=== PATIENT | male | born 1975 | race Caucasian/White ===

== ENCOUNTER → 2017-03-19 | Outpatient (CLI) | payer MEDICARE ==
--- NOTE | 2017-03-19 11:47 | FL ---
EXAMINATION TYPE: FL UGI air w esophagus DATE OF EXAM: 03/19/2017 11:38 AM COMPARISON: Previous study dated 05/05/2011. HISTORY: Severe epigastric pain and weight loss. TECHNIQUE: A double contrast UGI study is performed. FINDINGS: The patient experienced some discomfort drinking barium. There is prompt egress of barium f rom the esophagus into the stomach. There are postoperative changes in the stomach. There is a small diverticulum arising from the fundus of the stomach along the lesser curve. There is loss of the normal stomach folds in what is either t he gastric antrum of the proximal small bowel. There is a small area of fixed narrowing just distal t o the anastomosis with the stomach and small bowel. IMPRESSION: 1. POSTOPERATIVE CHANGE. 2. LOSS OF NORMAL MARKINGS IN THE DISTAL STOMACH OR PROXIMAL SMALL BOWEL CONSISTENT WITH CHRONIC IGGY RITIS. 3. FIXED NARROWING AT WHAT APPEARS TO BE ANASTOMOSIS OF THE STOMACH WITH THE SMALL BOWEL.
== END | disposition home or self-care (01) ==
LOC: RADFLWHC 11:00
PROVIDERS: ATTEND Surgery
DX: K27.9 Peptic ulcer, site unspecified, unspecified as acute or chronic, without hemorrhage or perforation (principal)
CPT/HCPCS: 74246

== ENCOUNTER 2017-09-14 16:05 | Emergency (ER) | payer MEDICARE ==
[2017-09-14] MEDS ORDERED: SODIUM CHLORIDE 0.9% 1,000 ML IV STA (16:26)
--- NOTE | 2017-09-14 16:38 | ED ---
Weakness HPI - General Chief complaint: Weakness Stated complaint: Dehydration Time Seen by Provider: 09/14/17 16:19 Source: patient, family, RN notes reviewed Mode of arrival: wheelchair Limitations: no limitations - History of Present Illness Initial comments: This a 41-year-old male presents emergency Department with family with chief complaint of dehydration. Patient states that he has been increasingly feeling weak and unable to the as much as he normally does. Patient states that he normally is thin but states that he's lost more weight than he usual. Patient states that he has known peptic ulcer disease and chronic back pain. Patient states he's been scoped by Dr. Kaveh gunn any other concerning symptoms. Patient states that he does have some nausea and occasional vomiting. Patient does complain of some sores in his mouth. Patient admits to be daily smoker states that he smoked 2 packs per day but currently only smokes half pack per day. He has no known cancer. Patient denies fever, chills, headache or dizziness. Denies palpitations or chest pain - Related Data Home Medications Medication Instructions Recorded Confirmed HYDROcodone/APAP 10-325MG [[place] 1 tab PO BID 06/24/14 09/14/17 10] Morphine Sulfate Ir [Msir] 30 mg PO Q8HR PRN 06/24/14 09/14/17 ALPRAZolam [Xanax] 0.5 mg PO BID 09/14/17 09/14/17 Citalopram Hydrobromide [CeleXA] 20 mg PO DAILY 09/14/17 09/14/17 Gabapentin 600 mg PO DAILY 09/14/17 09/14/17 Rizatriptan Benzoate [Maxalt] 10 mg PO DAILY PRN 09/14/17 09/14/17 Sucralfate [Carafate] 1 gm PO DAILY 09/14/17 09/14/17 Allergies Allergy/AdvReac Type Severity Reaction Status Date / Time azithromycin [From Zithromax] AdvReac Swelling Verified 09/14/17 16:43 Review of Systems ROS Statement: Those systems with pertinent positive or pertinent negative responses have been documented in the HPI. ROS Other: All systems not noted in ROS Statement are negative. Past Medical History Additional Past Medical History / Comment(s): Brittle bone disease, osteoporosis ,neuropathy scoliosis gi problems peptic ulcer disease History of Any Multi-Drug Resistant Organisms: None Reported MDRO Source:: Multiple abdominal surgeries related to peptic ulcer disease Past Surgical History: Cholecystectomy Additional Past Surgical History / Comment(s): stomach -tumor(benign) and ulcers Past Anesthesia/Blood Transfusion Reactions: No Reported Reaction Smoking Status: Current every day smoker Past Alcohol Use History: None Reported Past Drug Use History: None Reported - Past Family History Father Family Medical History: Cancer General Exam Limitations: no limitations General appearance: alert, in no apparent distress, lethargic, cachectic Head exam: Present: atraumatic, normocephalic, normal inspection Eye exam: Present: normal appearance, PERRL, EOMI. Absent: scleral icterus, conjunctival injection, periorbital swelling ENT exam: Present: mucous membranes moist, TM's normal bilaterally, normal external ear exam. Absent: normal oropharynx (Erythematous sores noted) Neck exam: Present: normal inspection, full ROM. Absent: tenderness, meningismus, lymphadenopathy Respiratory exam: Present: normal lung sounds bilaterally. Absent: respiratory distress, wheezes, rales, rhonchi, stridor Cardiovascular Exam: Present: normal rhythm, tachycardia, normal heart sounds. Absent: systolic murmur, diastolic murmur, rubs, gallop, clicks GI/Abdominal exam: Present: soft, normal bowel sounds. Absent: distended, tenderness, guarding, rebound, rigid Neurological exam: Present: alert, oriented X3, CN II-XII intact Skin exam: Present: warm, dry, intact, normal color. Absent: rash Course Vital Signs 09/14/17 09/14/17 16:13 18:26 Temperature 98.1 F Pulse Rate 140 H 79 Respiratory 18 15 Rate Blood Pressure 126/91 136/92 O2 Sat by Pulse 94 L 99 Oximetry Medical Decision Making - Medical Decision Making 41-year-old male presented for dehydration. Patient was hydrated with 2 L. Offer hospital admission for malnutrition, difficult swallowing and hydration. Patient states that he rather follow up outpatient. This was discussed in detail with family who agree at this time. Patient advised to call Dr. Linn's office for possible earlier EGD. Return parameters were discussed. - Lab Data Result diagrams: 09/14/17 17:04 09/14/17 17:04 Lab Results 09/14/17 09/14/17 09/14/17 Range/Units 17:04 17:04 17:04 WBC 10.8 H (3.8-10.6) k/uL RBC 4.02 L (4.30-5.90) m/uL Hgb 12.0 L (13.0-17.5) gm/dL Hct 40.7 (39.0-53.0) % MCV 101.3 H (80.0-100.0) fL MCH 29.9 (25.0-35.0) pg MCHC 29.5 L (31.0-37.0) g/dL RDW 17.4 H (11.5-15.5) % Plt Count 307 (150-450) k/uL Neutrophils % 88 % Lymphocytes % 7 % Monocytes % 3 % Eosinophils % 1 % Basophils % 0 % Neutrophils # 9.5 H (1.3-7.7) k/uL Lymphocytes # 0.8 L (1.0-4.8) k/uL Monocytes # 0.3 (0-1.0) k/uL Eosinophils # 0.1 (0-0.7) k/uL Basophils # 0.0 (0-0.2) k/uL Hypochromasia Moderate Anisocytosis Slight Macrocytosis Moderate PT (9.0-12.0) sec INR (<1.2) APTT (22.0-30.0) sec Sodium 143 (137-145) mmol/L Potassium 3.7 (3.5-5.1) mmol/L Chloride 112 H (98-107) mmol/L Carbon Dioxide 26 (22-30) mmol/L Anion Gap 5 mmol/L BUN 22 H (9-20) mg/dL Creatinine 0.50 L (0.66-1.25) mg/dL Est GFR (MDRD) Af Amer >60 (>60 ml/min/1.73 sqM) Est GFR (MDRD) Non-Af >60 (>60 ml/min/1.73 sqM) Glucose 87 (74-99) mg/dL Plasma Lactic Acid [place] (0.7-2.0) mmol/L Calcium 7.4 L (8.4-10.2) mg/dL Magnesium 1.7 (1.6-2.3) mg/dL Total Bilirubin 0.3 (0.2-1.3) mg/dL AST 59 (17-59) U/L ALT 38 (21-72) U/L Alkaline Phosphatase 281 H (38-126) U/L Total Creatine Kinase 152 (55-170) U/L CK-MB (CK-2) 1.2 (0.0-2.4) ng/mL CK-MB (CK-2) Rel Index 0.8 Troponin I <0.012 (0.000-0.034) ng/mL Total Protein 4.3 L (6.3-8.2) g/dL Albumin 1.6 L (3.5-5.0) g/dL Urine Color Urine Appearance (Clear) Urine pH (5.0-8.0) Ur Specific [place] (1.001-1.035) Urine Protein (Negative) Urine Glucose (UA) (Negative) Urine Ketones (Negative) Urine Blood (Negative) Urine Nitrite (Negative) Urine Bilirubin (Negative) Urine Urobilinogen (<2.0) mg/dL Ur Leukocyte Esterase (Negative) Urine RBC (0-5) /hpf Urine WBC (0-5) /hpf Urine Mucus (None) /hpf 09/14/17 09/14/17 09/14/17 Range/Units 17:04 17:04 17:04 WBC (3.8-10.6) k/uL RBC (4.30-5.90) m/uL Hgb (13.0-17.5) gm/dL Hct (39.0-53.0) % MCV (80.0-100.0) fL MCH (25.0-35.0) pg MCHC (31.0-37.0) g/dL RDW (11.5-15.5) % Plt Count (150-450) k/uL Neutrophils % % Lymphocytes % % Monocytes % % Eosinophils % % Basophils % % Neutrophils # (1.3-7.7) k/uL Lymphocytes # (1.0-4.8) k/uL Monocytes # (0-1.0) k/uL Eosinophils # (0-0.7) k/uL Basophils # (0-0.2) k/uL Hypochromasia Anisocytosis Macrocytosis PT 14.2 H (9.0-12.0) sec INR 1.5 H (<1.2) APTT 27.0 (22.0-30.0) sec Sodium (137-145) mmol/L Potassium (3.5-5.1) mmol/L Chloride (98-107) mmol/L Carbon Dioxide (22-30) mmol/L Anion Gap mmol/L BUN (9-20) mg/dL Creatinine (0.66-1.25) mg/dL Est GFR (MDRD) Af Amer (>60 ml/min/1.73 sqM) Est GFR (MDRD) Non-Af (>60 ml/min/1.73 sqM) Glucose (74-99) mg/dL Plasma Lactic Acid [place] 1.4 (0.7-2.0) mmol/L Calcium (8.4-10.2) mg/dL Magnesium (1.6-2.3) mg/dL Total Bilirubin (0.2-1.3) mg/dL AST (17-59) U/L ALT (21-72) U/L Alkaline Phosphatase (38-126) U/L Total Creatine Kinase (55-170) U/L CK-MB (CK-2) (0.0-2.4) ng/mL CK-MB (CK-2) Rel Index Troponin I (0.000-0.034) ng/mL Total Protein (6.3-8.2) g/dL Albumin (3.5-5.0) g/dL Urine Color Yellow Urine Appearance Clear (Clear) Urine pH 6.5 (5.0-8.0) Ur Specific [place] 1.024 (1.001-1.035) Urine Protein Trace H (Negative) Urine Glucose (UA) Negative (Negative) Urine Ketones 1+ H (Negative) Urine Blood Moderate H (Negative) Urine Nitrite Negative (Negative) Urine Bilirubin Negative (Negative) Urine Urobilinogen 3.0 (<2.0) mg/dL Ur Leukocyte Esterase Negative (Negative) Urine RBC 21 H (0-5) /hpf Urine WBC 1 (0-5) /hpf Urine Mucus Rare H (None) /hpf Disposition Clinical Impression: Dehydration, Malnutrition Disposition: HOME SELF-CARE Condition: Stable Instructions: Dehydration (ED) Additional Instructions: Please return to the Emergency Department if symptoms worsen or any other concerns. Referrals: Kavin Vital DO [Primary Care Provider] - 1-2 days Time of Disposition: 19:11
[2017-09-14 17:15] LABS: Anisocytosis Slight; Basophils % (A) 0 %; CH 30.7; CHCM 30.5; Eosinophils # (A) 0.1 k/uL (0-0.7); Eosinophils % (A) 1 %; HCT 40.7 % (39.0-53.0); HDW 2.44; Hypochromasia Moderate; Luc # (Auto) 0.08; Luc % (Auto) 1; Lymphocytes # (A) 0.8 k/uL (1.0-4.8); Lymphocytes % (A) 7 %; MCH 29.9 pg (25.0-35.0); MCHC 29.5 g/dL (31.0-37.0); MCV 101.3 fL (80.0-100.0); Macrocytosis Moderate; Monocytes # (A) 0.3 k/uL (0-1.0); Monocytes % (A) 3 %; Neutrophils # (A) 9.5 k/uL (1.3-7.7); Neutrophils % (A) 88 %; RBC 4.02 m/uL (4.30-5.90); RDW 17.4 % (11.5-15.5); WBC 10.8 k/uL (3.8-10.6); WBC (Perox) 9.89
[2017-09-14 17:27] LABS: ALT 38 U/L (21-72); AST 59 U/L (17-59); Alkaline Phosphatase 281 U/L (38-126); Anion Gap 5 mmol/L; Blood Urea Nitrogen 22 mg/dL (9-20); Calcium 7.4 mg/dL (8.4-10.2); Carbon Dioxide 26 mmol/L (22-30); Chloride 112 mmol/L (98-107); Glucose 87 mg/dL (74-99); Magnesium 1.7 mg/dL (1.6-2.3); Non-African American GFR(MDRD) >60 (>60 ml/min/1.73 sqM); Potassium 3.7 mmol/L (3.5-5.1); Sodium 143 mmol/L (137-145); Total Bilirubin 0.3 mg/dL (0.2-1.3); Total Protein 4.3 g/dL (6.3-8.2)
[2017-09-14 17:30] LABS: INR 1.5 (<1.2); Prothrombin Time 14.2 sec (9.0-12.0)
--- NOTE | 2017-09-14 17:33 | XR ---
EXAMINATION TYPE: XR chest 2V DATE OF EXAM: 09/14/2017 COMPARISON: 08/07/2011 HISTORY: Weakness TECHNIQUE: Frontal and lateral views of the chest are obtained. FINDINGS: There is no heart failure nor confluent pneumonic infiltrate. Costophrenic angles are edward r. Heart size is normal. There are chest leads. IMPRESSION: No active cardiopulmonary disease. No change.
[2017-09-14 17:37] LABS: Appearance,Urine Clear (Clear); Bilirubin,Urine Negative (Negative); Glucose,Urine (UA) Negative (Negative); Ketones,Urine 1+ (Negative); Leukocyte Esterase,Urine Negative (Negative); Mucus,Urine Rare /hpf; Nitrite,Urine Negative (Negative); PH, Urine 6.5 (5.0-8.0); Particle Count 2375; Protein,Urine Trace (Negative); RBC,Urine 21 /hpf (0-5); Specific Gravity,Urine 1.024 (1.001-1.035); UA Billing (MACRO vs. MICRO) MICRO; WBC,Urine 1 /hpf (0-5)
[2017-09-14 17:42] LABS: Creatine Kinase 152 U/L (55-170)
[2017-09-14 17:53] LABS: Creatine Kinase MB 1.2 ng/mL (0.0-2.4); Troponin I <0.012 ng/mL (0.000-0.034)
[2017-09-14] MEDS ORDERED: SODIUM CHLORIDE 0.9% 1,000 ML IV ONE (18:16)
[2017-09-14 19:44] VITALS: BP 144/99; PULSE 73; RESP 18; TEMP 97
== END 2017-09-14 19:43 | disposition home or self-care (01) ==
LOC: EC 16:05
DX: E46 Unspecified protein-calorie malnutrition (principal); E86.0 Dehydration; R00.0 Tachycardia, unspecified; G62.9 Polyneuropathy, unspecified; G89.29 Other chronic pain; K27.9 Peptic ulcer, site unspecified, unspecified as acute or chronic, without hemorrhage or perforation; F17.200 Nicotine dependence, unspecified, uncomplicated; Z79.891 Long term (current) use of opiate analgesic; Z79.899 Other long term (current) drug therapy; Z88.1 Allergy status to other antibiotic agents; Z90.49 Acquired absence of other specified parts of digestive tract
CPT/HCPCS: 36415; 71020; 80053; 81001; 82550; 82553; 83605; 83735; 84484; 85025; 85610; 85730; 93005; 96360; 96361; 99285

== ENCOUNTER 2017-11-18 02:25 | Inpatient (IN) | payer MEDICARE ==
[2017-11-18] MEDS ORDERED: KETOROLAC 60 MG/2 ML VIAL IVP STA (02:47)
[2017-11-18] MEDS ORDERED: IPRATROPIUM-ALBUTEROL 3 ML NEB INHALATION STA (02:47)
[2017-11-18] MEDS ORDERED: LORazepam 2 MG/ML INJ IV STA (02:48)
--- NOTE | 2017-11-18 02:51 | ED ---
General Adult HPI - General Chief complaint: Upper Respiratory Infection Stated complaint: Pneumonia like symptoms Time Seen by Provider: 11/18/17 02:30 Source: EMS, RN notes reviewed Mode of arrival: EMS Limitations: no limitations - History of Present Illness Initial comments: This is a 42-year-old male who has a trach and comes in today because he is producing more phlegm. Patient denies any fever or chills patient denies any shortness of breath. Patient denies any chest pain or palpitations. Patient states his only complaint today is the production of more phlegm. alf sent him in because of this. Patient denies any abdominal pain patient denies any injuries. Patient denies any headache. - Related Data Previous Rx's Medication Instructions Recorded Artificial Tears-Hypromellose 1 drops BOTH EYES TID PRN bottle 10/05/17 [Artificial Tear Drops] Citalopram Hydrobromide [Celexa 20 mg PEJ/J-TUBE DAILY #300 ml 10/05/17 Oral Soln] Gabapentin Oral Soln [Neurontin 300 mg PEG/G-TUBE TID #1000 ml 10/05/17 Oral Soln] Heparin Sodium,Porcine [Heparin 5,000 unit SQ Q12HR vial 10/05/17 Sodium] Ipratropium-Albuterol Nebulize 3 ml INHALATION RT-Q2H PRN 10/05/17 [Duoneb 0.5 mg-3 mg/3 ml Soln] ampul.neb Ipratropium-Albuterol Nebulize 3 ml INHALATION RT-Q4H ampul.neb 10/05/17 [Duoneb 0.5 mg-3 mg/3 ml Soln] Morphine Sulfate [Morphine Sulfate 20 mg PEJ/J-TUBE TID PRN #90 ml 10/05/17 Oral Solution] Multivitamins with Iron, Ped 1 ml PO DAILY #30 ml 10/05/17 [Poly--[place] + Iron Drops (formulary)] Ondansetron [Zofran] 4 mg IVP Q8HR PRN vial 10/05/17 fentaNYL 50MCG/HR PATCH [Duragesic 1 patch TRANSDERM Q72H patch 10/05/17 50MCG/HR] Allergies Allergy/AdvReac Type Severity Reaction Status Date / Time azithromycin [From Zithromax] AdvReac Swelling Verified 11/18/17 02:36 Review of Systems ROS Statement: Those systems with pertinent positive or pertinent negative responses have been documented in the HPI. ROS Other: All systems not noted in ROS Statement are negative. 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 History of Any Multi-Drug Resistant Organisms: None Reported MDRO Source:: Multiple abdominal surgeries related to peptic ulcer disease Past Surgical History: Cholecystectomy Additional Past Surgical History / Comment(s): stomach -tumor(benign) and ulcers Past Anesthesia/Blood Transfusion Reactions: No Reported Reaction Past Psychological History: No Psychological Hx Reported Smoking Status: Current every day smoker Past Alcohol Use History: None Reported Past Drug Use History: None Reported - Past Family History Father Family Medical History: Cancer (Father at age of 68 from multiple myeloma.) Mother Family Medical History: No Reported History (Mother 68-year-old has no major medical problems.) Brother(s) Family Medical History: No Reported History (Patient has one brother no major problems.) Sister(s) Family Medical History: Renal Disease (Patient had 2 sisters one of them from diabetes mellitus type 2 in acute renal failure and also had history of pericarditis.) Daughter(s) Family Medical History: No Reported History (Patient has one daughter no major medical problems) Son(s) Family Medical History: No Reported History (Patient has one son no major medical problems.) General Exam - General Exam Comments Initial Comments: GENERAL: Patient is cachectic. Patient is nontoxic and well-hydrated and is in no acute distress. ENT: Neck is soft and supple. No significant lymphadenopathy is noted. Oropharynx is clear. Moist mucous membranes. EYES: The sclera were anicteric and conjunctiva were pink and moist. Extraocular movements were intact and pupils were equal round and reactive to light. Eyelids were unremarkable. PULMONARY: Patient's sounds rhonchorous everywhere but this could all be upper airway noises. CARDIOVASCULAR: There is a regular rate and rhythm without any murmurs gallops or rubs. ABDOMEN: Soft and nontender with normal bowel sounds. No palpable organomegaly was noted. There is no palpable pulsatile mass. SKIN: Skin is clear with no lesions or rashes and otherwise unremarkable. NEUROLOGIC: Patient is alert and oriented x3. Cranial nerves II through XII are grossly intact. Motor and sensory are also intact. Normal speech, volume and content. Symmetrical smile. MUSCULOSKELETAL: Normal extremities with adequate strength and full range of motion. No lower extremity swelling or edema. No calf tenderness. LYMPHATICS: No significant lymphadenopathy is noted PSYCHIATRIC: Normal psychiatric evaluation. Limitations: no limitations Course Vital Signs 11/18/17 11/18/17 11/18/17 02:28 02:52 03:06 Temperature 98.5 F Pulse Rate 96 100 100 Respiratory 20 Rate Blood Pressure 140/94 O2 Sat by Pulse 98 Oximetry 11/18/17 03:14 Temperature Pulse Rate 103 H Respiratory 20 Rate Blood Pressure 135/85 O2 Sat by Pulse 99 Oximetry Medical Decision Making - Medical Decision Making EKG shows normal sinus rhythm at 97 bpm ID interval is 124 QRS is 74 QT interval 332 QTC is 421. Patient's EKG shows no ST segment elevation or depression or T wave abnormalities are noted Chest x-ray shows a left-sided pneumonia. She also has a white count 29,000. I started the patient on Levaquin and Zosyn. I spoke with Dr. Yee she agreed to admit the patient I admitted the patient I continued antibiotics on the floor I also continued breathing treatments for the patient - Lab Data Result diagrams: 11/18/17 02:35 11/18/17 02:35 Lab Results 11/18/17 11/18/17 11/18/17 Range/Units 02:35 02:35 02:35 WBC 29.8 H* (3.8-10.6) k/uL RBC 3.36 L (4.30-5.90) m/uL Hgb 9.9 L D (13.0-17.5) gm/dL Hct 33.5 L (39.0-53.0) % MCV 99.7 (80.0-100.0) fL MCH 29.6 (25.0-35.0) pg MCHC 29.7 L (31.0-37.0) g/dL RDW 15.9 H (11.5-15.5) % Plt Count 444 (150-450) k/uL Neutrophils % (Manual) 93 % Lymphocytes % (Manual) 4 % Monocytes % (Manual) 3 % Neutrophils # (Manual) 27.71 H (1.3-7.7) k/uL Lymphocytes # (Manual) 1.19 (1.0-4.8) k/uL Monocytes # (Manual) 0.89 (0-1.0) k/uL Nucleated RBCs 0 (0-0) /100 WBC Manual Slide Review Performed Hypochromasia Marked Macrocytosis Slight Target Cells Present PT (9.0-12.0) sec INR (<1.2) APTT (22.0-30.0) sec Sodium 143 (137-145) mmol/L Potassium 4.7 (3.5-5.1) mmol/L Chloride 103 (98-107) mmol/L Carbon Dioxide 37 H (22-30) mmol/L Anion Gap 3 mmol/L BUN 20 (9-20) mg/dL Creatinine 0.30 L (0.66-1.25) mg/dL Est GFR (MDRD) Af Amer >60 (>60 ml/min/1.73 sqM) Est GFR (MDRD) Non-Af >60 (>60 ml/min/1.73 sqM) Glucose 92 (74-99) mg/dL Calcium 8.0 L (8.4-10.2) mg/dL Magnesium 1.9 (1.6-2.3) mg/dL Total Bilirubin 0.3 (0.2-1.3) mg/dL AST 24 (17-59) U/L ALT 49 (21-72) U/L Alkaline Phosphatase 330 H (38-126) U/L Total Creatine Kinase 21 L (55-170) U/L Total Protein 5.5 L (6.3-8.2) g/dL Albumin 2.0 L (3.5-5.0) g/dL 11/18/17 Range/Units 02:35 WBC (3.8-10.6) k/uL RBC (4.30-5.90) m/uL Hgb (13.0-17.5) gm/dL Hct (39.0-53.0) % MCV (80.0-100.0) fL MCH (25.0-35.0) pg MCHC (31.0-37.0) g/dL RDW (11.5-15.5) % Plt Count (150-450) k/uL Neutrophils % (Manual) % Lymphocytes % (Manual) % Monocytes % (Manual) % Neutrophils # (Manual) (1.3-7.7) k/uL Lymphocytes # (Manual) (1.0-4.8) k/uL Monocytes # (Manual) (0-1.0) k/uL Nucleated RBCs (0-0) /100 WBC Manual Slide Review Hypochromasia Macrocytosis Target Cells PT 12.2 H (9.0-12.0) sec INR 1.3 H (<1.2) APTT 27.4 (22.0-30.0) sec Sodium (137-145) mmol/L Potassium (3.5-5.1) mmol/L Chloride (98-107) mmol/L Carbon Dioxide (22-30) mmol/L Anion Gap mmol/L BUN (9-20) mg/dL Creatinine (0.66-1.25) mg/dL Est GFR (MDRD) Af Amer (>60 ml/min/1.73 sqM) Est GFR (MDRD) Non-Af (>60 ml/min/1.73 sqM) Glucose (74-99) mg/dL Calcium (8.4-10.2) mg/dL Magnesium (1.6-2.3) mg/dL Total Bilirubin (0.2-1.3) mg/dL AST (17-59) U/L ALT (21-72) U/L Alkaline Phosphatase (38-126) U/L Total Creatine Kinase (55-170) U/L Total Protein (6.3-8.2) g/dL Albumin (3.5-5.0) g/dL Disposition Clinical Impression: Pneumonia Disposition: [facility] Referrals: Kavin Vital DO [Primary Care Provider] - 1-2 days Time of Disposition: 03:32
[2017-11-18 02:55] LABS: HCT 33.5 % (39.0-53.0); Hypochromasia Marked; MCH 29.6 pg (25.0-35.0); MCHC 29.7 g/dL (31.0-37.0); MCV 99.7 fL (80.0-100.0); Macrocytosis Slight; Mean Platelet Volume 7.3; Platelet Count 444 k/uL (150-450); RBC 3.36 m/uL (4.30-5.90); RDW 15.9 % (11.5-15.5)
[2017-11-18 02:59] LABS: HGB 9.9 gm/dL (13.0-17.5)
[2017-11-18 03:00] LABS: WBC 29.8 k/uL (3.8-10.6)
[2017-11-18 03:07] LABS: ALT 49 U/L (21-72); AST 24 U/L (17-59); Alkaline Phosphatase 330 U/L (38-126); Anion Gap 3 mmol/L; Blood Urea Nitrogen 20 mg/dL (9-20); Carbon Dioxide 37 mmol/L (22-30); Chloride 103 mmol/L (98-107); Glucose 92 mg/dL (74-99); INR 1.3 (<1.2); Magnesium 1.9 mg/dL (1.6-2.3); Partial Thromboplastin Time 27.4 sec (22.0-30.0); Potassium 4.7 mmol/L (3.5-5.1); Prothrombin Time 12.2 sec (9.0-12.0); Sodium 143 mmol/L (137-145); Total Bilirubin 0.3 mg/dL (0.2-1.3); Total Protein 5.5 g/dL (6.3-8.2)
[2017-11-18 03:15] LABS: Lymphocytes # (M) 1.19 k/uL (1.0-4.8); Monocytes # (M) 0.89 k/uL (0-1.0); Neutrophils # (M) 27.71 k/uL (1.3-7.7); Neutrophils % (M) 93 %; Nucleated Red Blood Cells 0 /100 WBC (0-0); Total Cells Counted 100
[2017-11-18 03:16] LABS: Target Cells Present
[2017-11-18 03:23] LABS: Creatine Kinase 21 U/L (55-170)
[2017-11-18] MEDS ORDERED: LEVOFLOXACIN 750MG-D5W PMX 750 MG in DEXTROSE/WATER 1 150ML.BAG IVPB STA (03:28)
--- NOTE | 2017-11-18 03:28 | XR ---
EXAM: XR Chest, 2 Views CLINICAL HISTORY: Reason: difficulty breathing TECHNIQUE: Frontal and lateral views of the chest. COMPARISON: 10/06/17 FINDINGS: Tracheostomy in place. Retrocardiac opacity noted. Left peripheral midlung opacity is seen. Pulmonary hyperinflation. Heart and pulmonary vasculature are normal. Osseous structures are intact. IMPRESSION: Infiltrates in the left midlung and retrocardiac areas which may represent bronchopneumonia or subsegmental atelectasis. Correlate clinically.
[2017-11-18] MEDS ORDERED: IPRATROPIUM-ALBUTEROL 3 ML NEB INHALATION PRN ×2 (03:33→09:57)
[2017-11-18] MEDS ORDERED: PNEUMONIA PROTOCOL UTILIZED 1 EACH MISC PO PRN (03:33)
[2017-11-18] MEDS ORDERED: SODIUM CHLORIDE 0.9% 1,000 ML IV ONE (03:34)
[2017-11-18 03:37] LABS: Troponin I <0.012 ng/mL (0.000-0.034)
[2017-11-18] MEDS: PIPERACILLIN-TAZOBACTAM 3.375 GM in DEXTROSE/WATER 1 50ML.BAG IVPB STA (05:49)
[2017-11-18] MEDS ORDERED: ALPRAZolam 0.25 MG TAB PO PRN (09:42)
[2017-11-18] MEDS ORDERED: ARTIFICIAL TEARS-HYPROMELLOSE DROPS 15 ML BTL BOTH EYES PRN (09:57)
[2017-11-18] MEDS ORDERED: MORPHINE ORAL SOL CONC 20 MG/ML BOTTLE PEJ/J-Tube PRN (09:57)
[2017-11-18] MEDS ORDERED: MULTIVITAMINS, THERA 1 EACH TAB PEG/G-TUBE SCH (12:00)
[2017-11-18] MEDS ORDERED: MULTIVITAMINS, THERA LIQUID 237 ML BOTTLE PEG/G-TUBE SCH (12:00)
[2017-11-18] MEDS: HEPARIN SODIUM,PORCINE 5,000 UNIT/ML 1 ML VIAL SQ SCH ×2 (13:29→20:53)
[2017-11-18] MEDS: GABAPENTIN 300 MG CAP PEG/G-TUBE SCH ×2 (13:29→20:37)
--- NOTE | 2017-11-18 13:31 | P.CNPUL ---
History of Present Illness Consult date: 11/18/17 Reason for consult: dyspnea, cough, COPD, hypoxemia, pneumonia, abnormal CXR/CT Chief complaint: Shortness of breath/upper respiratory tract infection History of present illness: Consult dated 11/18/2017 This is a 42-year-old male who apparently was in our ICU for a number of days and weeks. The patient underwent tracheostomy for respiratory failure and failure to wean. He apparently was transferred to one of the specialized nursing facilities or long-term acute care units. Apparently the patient was weaned there. He apparently was eventually weaned to trach collar and then to nasal prongs. Tracheostomy tube is still in place. The patient was sent then to rehabilitation at [facility]. He's been there for some time. He comes here with complaints of increasing shortness of breath chest congestion and fever chills and phlegm production. The patient just doesn't feel like he is was doing as well as he had been doing. He apparently was evaluated in the emergency room and thought to have pneumonia. Chest x-ray shows retrocardiac infiltrate with some air bronchograms in the left lower lobe and some left midlung infiltrates as well. I'm seeing the patient for COPD exacerbation and left-sided pneumonia. The patient is alert and well. The patient has a tracheostomy tube in place. The patient is receiving nasal oxygen. He does feel better today than yesterday. Review of Systems A 12 point review of systems is positive for shortness of breath chest, cough chest congestion wheezing and phlegm production. He apparently also some slight temperature elevations. 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 History of Any Multi-Drug Resistant Organisms: None Reported MDRO Source:: Multiple abdominal surgeries related to peptic ulcer disease Past Surgical History: Cholecystectomy Additional Past Surgical History / Comment(s): stomach -tumor(benign) and ulcers Past Anesthesia/Blood Transfusion Reactions: No Reported Reaction Past Psychological History: Anxiety, Depression Smoking Status: Former smoker Past Alcohol Use History: None Reported Past Drug Use History: None Reported - Past Family History Father Family Medical History: Cancer Mother Family Medical History: No Reported History Brother(s) Family Medical History: No Reported History Sister(s) Family Medical History: Renal Disease Daughter(s) Family Medical History: No Reported History Son(s) Family Medical History: No Reported History Medications and Allergies Home Medications Medication Instructions Recorded Confirmed Type Artificial Tears-Hypromellose 1 drops BOTH EYES TID PRN bottle 10/05/17 Rx [Artificial Tear Drops] Citalopram Hydrobromide [Celexa 20 mg PEJ/J-TUBE DAILY #300 ml 10/05/17 Rx Oral Soln] Gabapentin Oral Soln [Neurontin 300 mg PEG/G-TUBE TID #1000 ml 10/05/17 Rx Oral Soln] Heparin Sodium,Porcine [Heparin 5,000 unit SQ Q12HR vial 10/05/17 11/18/17 Rx Sodium] Ipratropium-Albuterol Nebulize 3 ml INHALATION RT-Q2H PRN 10/05/17 11/18/17 Rx [Duoneb 0.5 mg-3 mg/3 ml Soln] ampul.neb Morphine Sulfate [Morphine Sulfate 20 mg PEJ/J-TUBE TID PRN #90 ml 10/05/17 Rx Oral Solution] Multivitamins with Iron, Ped 1 ml PO DAILY #30 ml 10/05/17 11/18/17 Rx [Poly--Tierra + Iron Drops (formulary)] Ondansetron [Zofran] 4 mg IVP Q8HR PRN vial 10/05/17 11/18/17 Rx fentaNYL 50MCG/HR PATCH [Duragesic 1 patch TRANSDERM Q72H patch 10/05/17 Rx 50MCG/HR] ALPRAZolam [Xanax] 0.5 mg PO BID PRN 11/18/17 11/18/17 History Allergies Allergy/AdvReac Type Severity Reaction Status Date / Time azithromycin [From Zithromax] AdvReac Swelling Verified 11/18/17 09:19 Physical Exam Osteopathic Statement: *. No significant issues noted on an osteopathic structural exam other than those noted in the History and Physical/Consult. Vitals: Vital Signs Temp Pulse Pulse Resp BP BP Pulse Ox 11/18/17 12:02 108 H 01/21/18 11:53 100 11/18/17 08:59 100 11/18/17 08:50 96 11/18/17 07:00 96.1 F L 96 18 110/75 98 11/18/17 05:00 96.4 F L 104 H 24 101/73 97 11/18/17 03:44 98.4 F 98 20 115/77 100 11/18/17 03:14 103 H 20 135/85 99 11/18/17 03:06 100 11/18/17 02:52 100 11/18/17 02:28 98.5 F 96 20 140/94 98 Intake and Output 11/17/17 11/18/17 11/18/17 22:59 06:59 14:59 Other: Weight 32.659 kg No acute distress, oriented 3. HEENT examination is grossly unremarkable. Mucous membranes are moist. No oral lesions. Neck supple. Full range of motion. No adenopathy thyromegaly or neck vein distention. The patient has a midline tracheostomy tube which is fitted with a speaking valve. Cardiovascular examination reveals regular rhythm rate. S1-S2 normal. No S3 or S4. No discernible murmur noted. Lungs reveal diffuse rhonchi. Breath sounds are severely diminished. No wheezes. A few scattered crackles. Breath sounds are equal bilaterally.. Abdomen soft bowel sounds are heard. No masses or tenderness. Extremities are intact. No cyanosis clubbing or edema. Skin is without rash or lesion. Neurologic examination is brief but nonfocal. Results - Laboratory Findings CBC and BMP: 11/18/17 02:35 11/18/17 02:35 PT/INR, D-dimer PT 12.2 sec (9.0-12.0) H 11/18/17 02:35 INR 1.3 (<1.2) H 11/18/17 02:35 Abnormal lab findings: Abnormal Labs 11/18/17 11/18/17 11/18/17 02:35 02:35 02:35 WBC 29.8 H* RBC 3.36 L Hgb 9.9 L D Hct 33.5 L MCHC 29.7 L RDW 15.9 H Neutrophils # (Manual) 27.71 H PT INR Carbon Dioxide 37 H Creatinine 0.30 L Calcium 8.0 L Alkaline Phosphatase 330 H Total Creatine Kinase 21 L Total Protein 5.5 L Albumin 2.0 L 11/18/17 02:35 WBC RBC Hgb Hct MCHC RDW Neutrophils # (Manual) PT 12.2 H INR 1.3 H Carbon Dioxide Creatinine Calcium Alkaline Phosphatase Total Creatine Kinase Total Protein Albumin - Diagnostic Findings Chest x-ray: image reviewed (Labs x-rays a medications are all reviewed.) Assessment and Plan Assessment: Assessment COPD exacerbation complicated by left-sided pneumonia Status post chronic respiratory failure, with long-term mechanical ventilation and eventual tracheostomy Failure to wean from mechanical ventilation Osteoporosis Gastroesophageal reflux disease GI bleed Scoliosis Peptic ulcer disease Status post cholecystectomy Previous heavy tobacco use Plan: Plan dated 11/18/2017 The patient's medications labs and x-rays are reviewed. We'll make sure the patient's on appropriate medications. Currently the patient still having too many secretions for consideration of decannulation. Here in the hospital would be a good time to decannulate him if he is ready for decannulation. That way he can be observed. He seems reasonably stable. X-rays are reviewed. He does have some left-sided infiltrates. Medications are reviewed. I did change the updrafts to doing 4 times a day and when necessary. We'll also make sure that he is on Perforomist and Pulmicort 1 mg twice a day. Time with Patient: Greater than 30
[2017-11-18] MEDS: HYDROcodone/APAP 10-325MG 1 EACH TAB PO PRN (14:52)
[2017-11-18] MEDS: IPRATROPIUM-ALBUTEROL 3 ML NEB INHALATION SCH ×2 (15:43→19:48)
[2017-11-18] MEDS ORDERED: PIPERACILLIN-TAZOBACTAM 3.375 GM in DEXTROSE/WATER 1 50ML.BAG IVPB SCH (16:00)
--- NOTE | 2017-11-18 16:31 | P.HPIM ---
History of Present Illness H&P Date: 11/18/17 Chief Complaint: SOB This is a 41-year-old male one of Kaiden Celaya [place], [place] with a previous medical history significant for peptic ulcer disease was diagnosed initially back in 2009 for which he underwent partial gastrectomy with vagotomy f/by recurrent peptic ulcer disease underwent subtotal gastrectomy with gastrojejunostomy in 2010, and was admitted last year in sep 2017 with significant weight loss and inability to tolerate any diet with recurrent nausea and vomiting and cachexia secondaryt o stricture of the the gastric jejunostomy area and was supposed to get it fixed outpatient but was admitted with AMS and hypoxic respiratory failure secondary aspiration. Patient was intubated twice during his hospital stay and tracheostomy was placed by Dr. Espinal eventually on October 05 for failure to wean. [facility] [place] [facility]. He was transitioned to [facility] collar few days after his discharge according to patient. He was doing great and had no difficulty swallowing his meal is currently taking oral pill through his mouth. According to mother bedside patient had fever, chills, phlegm production associated with some congestion and shortness of breath. He wears oxygen intermittently at the facility. Rapid flu was negative. Chest x- ray suggestive of a retrocardiac infiltrate with some air bronchograms in the left lower lobe and left mid lung. Abdomen done in the ER was positive for WBC 29.8, hemoglobin 9.9, creatinine 0.3, albumin 2. Patient is tachycardic, requiring 3 L of oxygen saturating at 96% with blood pressure 101/73. Patient initiated on broad-spectrum antibiotic for acute hypoxic respiratory failure secondary to pneumonia. Antibiotic coverage with cefepime and levofloxacin. Pulmonary consult placed. Speech evaluation to assess swallow. Review of Systems Constitutional: Reports chills, Reports fatigue, Reports fever, Reports lethargy , Denies poor appetite, Denies weight loss Eyes: denies diplopia, denies irritation, denies itching Ears: deny: decreased hearing Ears, nose, mouth and throat: Denies ant. neck pain, Denies dysphagia, Denies headache, Denies hoarseness, Denies neck lump, Denies nose pain, Denies odynophagia, Denies post-nasal drip, Denies swelling in mouth, Denies swelling in throat Cardiovascular: Denies chest pain, Denies claudication, Denies decreased exercise tolerance, Denies edema, Denies high blood pressure, Denies irregular heart beat, Denies leg edema Respiratory: Reports congestion, Reports cough, Reports cough with sputum, Reports dyspnea, Reports excessive sputum, Reports home oxygen, Denies hemoptysis, Denies sleep apnea, Denies wheezing Gastrointestinal: Denies abdominal pain, Denies belching, Denies bloating, Denies BRBPR, Denies change in bowel habits, Denies loss of appetite, Denies nausea, Denies vomiting Genitourinary: Denies nocturia, Denies urinary frequency, Denies urinary hesitancy, Denies urinary retention Musculoskeletal: Reports gait dysfunction, Reports limitation of motion, Reports muscle weakness, Denies arm numbness/tingling Integumentary: Denies rash, Denies unusual bruising Neurological: Reports balance difficulties, Reports motor disturbance, Denies ataxia, Denies change in mentation, Denies change in speech, Denies gait dysfunction, Denies paralysis, Denies paresthesias, Denies seizures Psychiatric: Denies anxiety, Denies depression, Denies hallucinations Endocrine: Denies excessive sweating, Denies excessive thirst, Denies fatigue Past Medical History Past Medical History: GERD/Reflux, GI Bleed, Musculoskeletal Disorder Additional Past Medical History / Comment(s): Brittle bone disease, osteoporosis ,neuropathy scoliosis gi problems peptic ulcer disease status post 2 surgeries in 2009 2010 with gastrojejunostomy stenosis. History of Any Multi-Drug Resistant Organisms: None Reported MDRO Source:: Multiple abdominal surgeries related to peptic ulcer disease Past Surgical History: Cholecystectomy Additional Past Surgical History / Comment(s): stomach -tumor(benign) and ulcers Past Anesthesia/Blood Transfusion Reactions: No Reported Reaction Past Psychological History: Anxiety, Depression Smoking Status: Former smoker Past Alcohol Use History: None Reported Past Drug Use History: None Reported - Past Family History Father Family Medical History: Cancer Mother Family Medical History: No Reported History Brother(s) Family Medical History: No Reported History Sister(s) Family Medical History: Renal Disease Daughter(s) Family Medical History: No Reported History Son(s) Family Medical History: No Reported History Medications and Allergies Home Medications Medication Instructions Recorded Confirmed Type Artificial Tears-Hypromellose 1 drops BOTH EYES TID PRN bottle 10/05/17 Rx [Artificial Tear Drops] Citalopram Hydrobromide [Celexa 20 mg PEJ/J-TUBE DAILY #300 ml 10/05/17 Rx Oral Soln] Gabapentin Oral Soln [Neurontin 300 mg PEG/G-TUBE TID #1000 ml 10/05/17 Rx Oral Soln] Heparin Sodium,Porcine [Heparin 5,000 unit SQ Q12HR vial 10/05/17 11/18/17 Rx Sodium] Ipratropium-Albuterol Nebulize 3 ml INHALATION RT-Q2H PRN 10/05/17 11/18/17 Rx [Duoneb 0.5 mg-3 mg/3 ml Soln] ampul.neb Morphine Sulfate [Morphine Sulfate 20 mg PEJ/J-TUBE TID PRN #90 ml 10/05/17 Rx Oral Solution] Multivitamins with Iron, Ped 1 ml PO DAILY #30 ml 10/05/17 11/18/17 Rx [Poly--Tierra + Iron Drops (formulary)] Ondansetron [Zofran] 4 mg IVP Q8HR PRN vial 10/05/17 11/18/17 Rx fentaNYL 50MCG/HR PATCH [Duragesic 1 patch TRANSDERM Q72H patch 10/05/17 Rx 50MCG/HR] ALPRAZolam [Xanax] 0.5 mg PO BID PRN 11/18/17 11/18/17 History Allergies Allergy/AdvReac Type Severity Reaction Status Date / Time azithromycin [From Zithromax] AdvReac Swelling Verified 11/18/17 09:19 Physical Exam Vitals: Vital Signs Temp Pulse Pulse Resp BP BP Pulse Ox 11/18/17 15:48 96 96 11/18/17 12:02 108 H 11/18/17 11:53 100 11/18/17 08:59 100 11/18/17 08:50 96 11/18/17 07:00 96.1 F L 96 18 110/75 98 11/18/17 05:00 96.4 F L 104 H 24 101/73 97 11/18/17 03:44 98.4 F 98 20 115/77 100 11/18/17 03:14 103 H 20 135/85 99 01/21/18 03:06 100 11/18/17 02:52 100 11/18/17 02:28 98.5 F 96 20 140/94 98 Intake and Output 11/18/17 11/18/17 11/18/17 06:59 14:59 22:59 Other: Weight 32.659 kg - Constitutional General appearance: cooperative, thin - EENT Eyes: EOMI, PERRLA, no photophobia, poor dentition, no scleral icterus Ears: bilateral: normal - Neck Neck: no lymphadenopathy, normal ROM, other (trach collar in place ) Carotids: bilateral: upstroke normal - Respiratory Respiratory: left: diminished, dullness, rhonchi, negative: wheezing - Cardiovascular Rhythm: regular (tachycardic) Heart sounds: normal: S1, S2 Abnormal Heart Sounds: no systolic murmur, no diastolic murmur ankle Peripheral Edema: bilateral: None - Gastrointestinal General gastrointestinal: no distended (J tub with greenish to blackish drainage around the J tube with open ulceration around thesite of J tube, no drainage seen ), normal bowel sounds, soft, no tenderness - Integumentary Integumentary: no calor, normal turgor, no pale, no rash, no ulcer - Neurologic Neurologic: CNII-XII intact - Musculoskeletal Musculoskeletal: generalized weakness, strength equal bilaterally - Psychiatric Psychiatric: A&O x's 3, appropriate affect Results CBC & Chem 7: 11/18/17 02:35 11/18/17 02:35 Labs: Abnormal Lab Results - Last 24 Hours (Table) 11/18/17 11/18/17 11/18/17 Range/Units 02:35 02:35 02:35 WBC 29.8 H* (3.8-10.6) k/uL RBC 3.36 L (4.30-5.90) m/uL Hgb 9.9 L D (13.0-17.5) gm/dL Hct 33.5 L (39.0-53.0) % MCHC 29.7 L (31.0-37.0) g/dL RDW 15.9 H (11.5-15.5) % Neutrophils # (Manual) 27.71 H (1.3-7.7) k/uL PT (9.0-12.0) sec INR (<1.2) Carbon Dioxide 37 H (22-30) mmol/L Creatinine 0.30 L (0.66-1.25) mg/dL Calcium 8.0 L (8.4-10.2) mg/dL Alkaline Phosphatase 330 H (38-126) U/L Total Creatine Kinase 21 L (55-170) U/L Total Protein 5.5 L (6.3-8.2) g/dL Albumin 2.0 L (3.5-5.0) g/dL 11/18/17 Range/Units 02:35 WBC (3.8-10.6) k/uL RBC (4.30-5.90) m/uL Hgb (13.0-17.5) gm/dL Hct (39.0-53.0) % MCHC (31.0-37.0) g/dL RDW (11.5-15.5) % Neutrophils # (Manual) (1.3-7.7) k/uL PT 12.2 H (9.0-12.0) sec INR 1.3 H (<1.2) Carbon Dioxide (22-30) mmol/L Creatinine (0.66-1.25) mg/dL Calcium (8.4-10.2) mg/dL Alkaline Phosphatase (38-126) U/L Total Creatine Kinase (55-170) U/L Total Protein (6.3-8.2) g/dL Albumin (3.5-5.0) g/dL Thrombosis Risk Factor Assmnt - DVT/VTE Prophylaxis DVT/VTE Prophylaxis: Pharmacologic Prophylaxis ordered, Mechanical Prophylaxis ordered - Choose All That Apply Any of the Below Risk Factors Present?: No Each Factor Represents 1 point: Age 41-60 years Other Risk Factors: No Thrombosis Risk Factor Assessment Total Risk Factor Score: 1 Thrombosis Risk Factor Assessment Level: Very Low Risk Assessment and Plan Plan: 1. Sepsis secondary to Acute hypoxemic respiratory failure from left lower lobe pneumonia and COPD. Continue levofloxacin and cefepime . Sputum culture ordered. . Continue Pulmicort and Perforomist with DuoNeb for shortness of breath. trach collar in place. Pulmonary recommendation pending regarding D cannulization of the trach. Unclear if patient is still aspirating. 2. Severe protein calorie malnutrition with kwashiorkor thought to be due to significant stenosis of the gastrojejunostomy site. EGD performed by Dr. Espinal and underwent open jejunostomy tube on September 26. COntinue feeding via J tube, [employer] consulted 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 4. Severe hypoalbuminemia secondary to poor oral intake of fluid and severe protein calorie malnutrition with kwashiorkor. Nutrition consult. Ensure with meals 5. History of migraine headache. At stable at this point in time. 6. Chronic pain syndrome. Continue long-acting morphine sulfate, with norco for break through pain, continue gabapentin 7. Bilateral lower extremity neuropathy. Continue gabapentin 300 3 times a day via G-tube 8. DVT prophylaxis. Continue heparin 5000 units subcutaneously every 12 hours. 9. GI prophylaxis. Continue patient on Protonix 40 mg IV push every 24 hours. 10. Patient is full code. 11. Body mass index is 13.4 12. Acute on chronic blood loss anemia, chronic secondary to severe malnourishment. FOBT on 09/17 was positive. Patient is on iron pills and has dark stool output from J tube. Hb stable. No ulceration was seen during the EGD. Follow-up with gastroenterology as outpatient 13. COPD CODE STATUS: Full code. [facility] once clinically [facility], need atleast 2 inpatient [facility] t Sepsis - Sepsis Sepsis Focused Exam #1 Sepsis Focused Exam Complete: Yes Vital Signs & RN Notes Reviewed: Yes Capillary Refill: < 2 Seconds: Fingers, Toes Peripheral Pulses: Strong: Radial (R), Radial (L), Dorsalis Pedis (R), Dorsalis Pedis (L) Skin Color: Normal for Patient Respiratory Exam: decreased breath sounds Cardiovascular Exam: regular rate, tachycardia
[2017-11-18] MEDS: methylPREDNISolone SOD SUCCI 40 MG/ML 1 ML VIAL IV SCH ×2 (18:21→23:27)
[2017-11-18] MEDS: CEFEPIME 2 GM in SODIUM CHLORIDE 0.9% 50 ML IVPB SCH ×2 (18:24→23:27)
[2017-11-18] MEDS: GABAPENTIN 300 MG CAP PO SCH ×2 (18:24→23:27)
[2017-11-18] MEDS: SODIUM CHLORIDE 0.9% 1,000 ML IV SCH (19:19)
[2017-11-18] MEDS: ALPRAZolam 0.5 MG TAB PO PRN (19:20)
[2017-11-18] MEDS: MORPHINE ORAL SOLN 10 MG/5 ML CUP PO SCH (19:24)
[2017-11-18] MEDS: BUDESONIDE 1 MG/2 ML NEBU INHALATION SCH (19:48)
[2017-11-18] MEDS: FORMOTEROL FUMARATE 20 MCG/2 ML NEBU INHALATION SCH (19:48)
[2017-11-18] MEDS: CITALOPRAM HYDROBROMIDE 20 MG TAB PO SCH (20:53)
[2017-11-18] MEDS ORDERED: CITALOPRAM HYDROBROMIDE 20 MG TAB PEJ/J-Tube SCH (22:00)
[2017-11-18] MEDS: MENTHOL-ZINC OXIDE OINT 113 GM TUBE TOPICAL PRN (22:40)
[2017-11-19] MEDS: ALPRAZolam 0.5 MG TAB PO PRN ×3 (02:32→18:45)
[2017-11-19] MEDS: MORPHINE ORAL SOLN 10 MG/5 ML CUP PO SCH ×3 (02:32→18:37)
[2017-11-19] MEDS ORDERED: LEVOFLOXACIN 750MG-D5W PMX 750 MG in DEXTROSE/WATER 1 150ML.BAG IVPB SCH (06:00)
[2017-11-19] MEDS: GABAPENTIN 300 MG CAP PO SCH ×3 (06:03→18:37)
[2017-11-19] MEDS: HYDROcodone/APAP 10-325MG 1 EACH TAB PO PRN (06:59)
[2017-11-19] MEDS: FORMOTEROL FUMARATE 20 MCG/2 ML NEBU INHALATION SCH ×2 (07:15→19:30)
[2017-11-19] MEDS: BUDESONIDE 1 MG/2 ML NEBU INHALATION SCH ×2 (07:15→19:30)
[2017-11-19] MEDS: IPRATROPIUM-ALBUTEROL 3 ML NEB INHALATION SCH ×4 (07:15→19:30)
[2017-11-19 07:37] LABS: Glucose,Whole Blood 116 mg/dL (75-99)
[2017-11-19] MEDS: CEFEPIME 2 GM in SODIUM CHLORIDE 0.9% 50 ML IVPB SCH ×2 (08:53→16:09)
[2017-11-19] MEDS: HEPARIN SODIUM,PORCINE 5,000 UNIT/ML 1 ML VIAL SQ SCH ×2 (08:54→21:51)
[2017-11-19] MEDS: methylPREDNISolone SOD SUCCI 40 MG/ML 1 ML VIAL IV SCH ×2 (08:54→16:09)
[2017-11-19] MEDS: SODIUM CHLORIDE 0.9% 1,000 ML IV SCH (09:01)
[2017-11-19 09:17] LABS: Anisocytosis Slight; Basophils % (A) 0 %; Eosinophils % (A) 0 %; HCT 29.5 % (39.0-53.0); HGB 8.5 gm/dL (13.0-17.5); Hypochromasia Marked; Lymphocytes # (A) 0.5 k/uL (1.0-4.8); Lymphocytes % (A) 4 %; MCH 28.8 pg (25.0-35.0); MCHC 28.9 g/dL (31.0-37.0); MCV 99.7 fL (80.0-100.0); Macrocytosis Slight; Mean Platelet Volume 8.2; Monocytes # (A) 0.1 k/uL (0-1.0); Monocytes % (A) 1 %; Neutrophils # (A) 11.5 k/uL (1.3-7.7); Neutrophils % (A) 94 %; Platelet Count 387 k/uL (150-450); RBC 2.96 m/uL (4.30-5.90); RDW 17.1 % (11.5-15.5); WBC 12.2 k/uL (3.8-10.6)
[2017-11-19 09:30] LABS: Anion Gap 4 mmol/L; Blood Urea Nitrogen 17 mg/dL (9-20); Calcium 7.9 mg/dL (8.4-10.2); Carbon Dioxide 31 mmol/L (22-30); Chloride 103 mmol/L (98-107); Glucose 118 mg/dL (74-99); Potassium 3.9 mmol/L (3.5-5.1); Sodium 138 mmol/L (137-145)
--- NOTE | 2017-11-19 09:55 | P.PN ---
Subjective Progress Note Date: 11/19/17 Principal diagnosis: COPD exacerbation complicated by left-sided pneumonia This is a 42-year-old male who apparently was in our ICU for a number of days and weeks. The patient underwent tracheostomy for respiratory failure and failure to wean. He apparently was transferred to one of the specialized nursing facilities or long-term acute care units. Apparently the patient was weaned there. He apparently was eventually weaned to trach collar and then to nasal prongs. Tracheostomy tube is still in place. The patient was sent then to rehabilitation at [facility]. He's been there for some time. He comes here with complaints of increasing shortness of breath chest congestion and fever chills and phlegm production. The patient just doesn't feel like he is was doing as well as he had been doing. He apparently was evaluated in the emergency room and thought to have pneumonia. Chest x-ray shows retrocardiac infiltrate with some air bronchograms in the left lower lobe and some left midlung infiltrates as well. I'm seeing the patient for COPD exacerbation and left-sided pneumonia. The patient is alert and well. The patient has a tracheostomy tube in place. The patient is receiving nasal oxygen. He does feel better today than yesterday. On 11/19/2017 patient seen in follow-up. Resting comfortably in bed, in no acute distress. Staff suctioning large amount of sputum, solares espinal in color. Patient does have productive cough. Lung sounds are positive for scattered rhonchi bilaterally. Remains afebrile, vital signs are stable, currently on 2 L per nasal cannula set 100%. Labs have been reviewed, WBC is on a downward trend, down to 12.2, hemoglobin is 8.5, sodium is 138, potassium 3.9, CO2 is 31 , B1 17, creatinine 0.26. Influenza screen was negative. Patient is awake, alert, oriented 3. Tracheostomy is in place with a speaking valve. Patient is tolerating oral intake, fair appetite. His on combination of cefepime, Levaquin, Zosyn. Blood and sputum cultures are pending. Objective - Vital Signs Vital signs: Vital Signs Temp 94.8 F L 11/19/17 07:00 Pulse 80 11/19/17 07:43 Resp 16 11/19/17 07:00 BP 127/89 11/19/17 07:00 Pulse Ox 100 11/19/17 07:00 Intake & Output 11/18/17 11/19/17 11/19/17 18:59 06:59 18:59 Intake Total 1100 Balance 1100 Weight 32.659 kg Intake: Oral 1100 Other: Voiding Method Urinal # Voids 3 2 - Exam No acute distress, oriented 3. HEENT examination is grossly unremarkable. Mucous membranes are moist. No oral lesions. Neck supple. Full range of motion. No adenopathy thyromegaly or neck vein distention. The patient has a midline tracheostomy tube which is fitted with a speaking valve. Cardiovascular examination reveals regular rhythm rate. S1-S2 normal. No S3 or S4. No discernible murmur noted. Lungs reveal diffuse rhonchi. Breath sounds are severely diminished. No wheezes. A few scattered crackles. Breath sounds are equal bilaterally.. Abdomen soft bowel sounds are heard. No masses or tenderness. Extremities are intact. No cyanosis clubbing or edema. Skin is without rash or lesion. Neurologic examination is brief but nonfocal. - Labs CBC & Chem 7: 11/19/17 08:54 11/19/17 08:54 Labs: Abnormal Lab Results - Last 24 Hours (Table) 11/19/17 11/19/17 11/19/17 Range/Units 07:19 08:54 08:54 WBC 12.2 H (3.8-10.6) k/uL RBC 2.96 L (4.30-5.90) m/uL Hgb 8.5 L (13.0-17.5) gm/dL Hct 29.5 L (39.0-53.0) % MCHC 28.9 L (31.0-37.0) g/dL RDW 17.1 H (11.5-15.5) % Neutrophils # 11.5 H (1.3-7.7) k/uL Lymphocytes # 0.5 L (1.0-4.8) k/uL Carbon Dioxide 31 H (22-30) mmol/L Creatinine 0.26 L (0.66-1.25) mg/dL Glucose 118 H (74-99) mg/dL POC Glucose (mg/dL) 116 H (75-99) mg/dL Calcium 7.9 L (8.4-10.2) mg/dL Microbiology - Last 24 Hours (Table) 11/18/17 02:35 Blood Culture - Preliminary Blood No Growth after 24 hours 11/18/17 12:08 Gram Stain - Preliminary Sputum Sputum Culture - Preliminary Assessment and Plan Plan: Assessment: COPD exacerbation complicated by left-sided pneumonia Status post chronic respiratory failure, with long-term mechanical ventilation and eventual tracheostomy Osteoporosis Gastroesophageal reflux disease GI bleed Scoliosis Peptic ulcer disease Status post cholecystectomy Previous heavy tobacco use Plan: Continue with present medical treatment, continue cefepime, Zosyn and Levaquin. Await the results of blood and sputum cultures. Clinically patient is doing fairly well, signs are stable, patient is afebrile. Still having large amount of tracheal secretions. No signs of any respiratory distress noted. Labs have been reviewed. Continue IV Solu-Medrol, nebulized treatments. Repeat chest x- ray this morning. I performed a history & physical examination of the patient and discussed their management with my nurse practitioner, Esthela Garcia. I reviewed the nurse practitioner's note and agree with the documented findings and plan of care. Lung sounds are positive for scattered rhonchi throughout the lung allison. The findings and the impression was discussed with the patient. I attest to the documentation by the nurse practitioner. Time with Patient: Less than 30
[2017-11-19 12:27] LABS: Glucose,Whole Blood 135 mg/dL (75-99)
[2017-11-19] MEDS ORDERED: guaiFENesin SYRUP 100MG/5ML 200 MG/10 ML CUP PO PRN (12:50)
--- NOTE | 2017-11-19 12:56 | P.PN ---
Subjective Progress Note Date: 11/19/17 This is a 41-year-old male one of Kaiden Matute [place], [place] with a previous medical history significant for peptic ulcer disease was diagnosed initially back in 2009 for which he underwent partial gastrectomy with vagotomy f/by recurrent peptic ulcer disease underwent subtotal gastrectomy with gastrojejunostomy in 2010, and was admitted last year in sep 2017 with significant weight loss and inability to tolerate any diet with recurrent nausea and vomiting and cachexia secondaryt o stricture of the the gastric jejunostomy area and was supposed to get it fixed outpatient but was admitted with AMS and hypoxic respiratory failure secondary aspiration. Patient was intubated twice during his hospital stay and tracheostomy was placed by Dr. Espinal eventually on October 05 for failure to wean. [facility] [place] [facility]. He was transitioned to [facility] few days after his discharge according to patient. He was doing great and had no difficulty swallowing his meal is currently taking oral pill through his mouth. According to mother bedside patient had fever, chills, phlegm production associated with some congestion and shortness of breath. He wears oxygen intermittently at the facility. Rapid flu was negative. Chest x- ray suggestive of a retrocardiac infiltrate with some air bronchograms in the left lower lobe and left mid lung. Abdomen done in the ER was positive for WBC 29.8, hemoglobin 9.9, creatinine 0.3, albumin 2. Patient is tachycardic, requiring 3 L of oxygen saturating at 96% with blood pressure 101/73. Patient initiated on broad-spectrum antibiotic for acute hypoxic respiratory failure secondary to pneumonia. Antibiotic coverage with cefepime and levofloxacin. Pulmonary consult placed. Speech evaluation to assess swallow. 11/19: Patient has been seen by speech therapy and he is able to eat a regular diet which will be placed. He has not had any nausea or vomiting. Dietitian is also adding in tube feedings. IV fluids will be changed to saline lock. Patient does have significant amount of sputum from his trach area and is being suctioned. Mucinex added. Noted to have J-tube leakage at the site of green liquid. Dr. Espinal will be consulted Objective - Vital Signs Vital signs: Vital Signs Temp 94.8 F L 11/19/17 07:00 Pulse 80 11/19/17 07:43 Resp 16 11/19/17 07:00 BP 127/89 11/19/17 07:00 Pulse Ox 100 11/19/17 07:00 Intake & Output 11/18/17 11/19/17 11/19/17 18:59 06:59 18:59 Intake Total 1100 Balance 1100 Weight 32.659 kg Intake: Oral 1100 Other: Voiding Method Urinal # Voids 3 2 - Exam - Constitutional General appearance: cooperative, thin - EENT Eyes: EOMI, PERRLA, no photophobia, poor dentition, no scleral icterus Ears: bilateral: normal - Neck Neck: no lymphadenopathy, normal ROM, other (trach collar in place ) Carotids: bilateral: upstroke normal - Respiratory Respiratory: left: diminished, dullness, rhonchi, negative: wheezing - Cardiovascular Rhythm: regular (tachycardic) Heart sounds: normal: S1, S2 Abnormal Heart Sounds: no systolic murmur, no diastolic murmur ankle Peripheral Edema: bilateral: None - Gastrointestinal General gastrointestinal: no distended (J tub with greenish to blackish drainage around the J tube with open ulceration around thesite of J tube, no drainage seen ), normal bowel sounds, soft, no tenderness - Integumentary Integumentary: no calor, normal turgor, no pale, no rash, no ulcer - Neurologic Neurologic: CNII-XII intact - Musculoskeletal Musculoskeletal: generalized weakness, strength equal bilaterally - Psychiatric Psychiatric: A&O x's 3, appropriate affect - Labs CBC & Chem 7: 11/19/17 08:54 11/19/17 08:54 Labs: Abnormal Lab Results - Last 24 Hours (Table) 11/19/17 Range/Units 07:19 POC Glucose (mg/dL) 116 H (75-99) mg/dL Microbiology - Last 24 Hours (Table) 11/18/17 02:35 Blood Culture - Preliminary Blood No Growth after 24 hours 11/18/17 12:08 Gram Stain - Preliminary Sputum Sputum Culture - Preliminary Assessment and Plan Plan: 1. Sepsis secondary to Acute hypoxemic respiratory failure from left lower lobe pneumonia and COPD. Continue levofloxacin and cefepime . Sputum culture ordered. Continue Pulmicort and Perforomist with DuoNeb for shortness of breath. trach collar in place. Pulmonary recommendation pending regarding D cannulization of the trach. Unclear if patient is still aspirating. 2. Severe protein calorie malnutrition with kwashiorkor thought to be due to significant stenosis of the gastrojejunostomy site. EGD performed by Dr. Espinal and underwent open jejunostomy tube on September 26. COntinue feeding via J tube, [employer] consulted and to start tube feedings as well as regular diet. Dr. Espinal consult requested for leakage at the J-tube site. 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 4. Severe hypoalbuminemia secondary to poor oral intake of fluid and severe protein calorie malnutrition with kwashiorkor. Nutrition consult. Ensure with meals 5. History of migraine headache. At stable at this point in time. 6. Chronic pain syndrome. Continue long-acting morphine sulfate, with norco for break through pain, continue gabapentin 7. Bilateral lower extremity neuropathy. Continue gabapentin 300 3 times a day via G-tube 8. DVT prophylaxis. Continue heparin 5000 units subcutaneously every 12 hours. 9. GI prophylaxis. Continue patient on Protonix 40 mg IV push every 24 hours. 10. Patient is full code. 11. Body mass index is 10 12. Acute on chronic blood loss anemia, chronic secondary to severe malnourishment. FOBT on 09/17 was positive. Patient is on iron pills and has dark stool output from J tube. Hb stable. No ulceration was seen during the EGD. Follow-up with gastroenterology as outpatient 13. COPD CODE STATUS: Full code. Discharge plan: [facility] Impression and plan of care have been directed as dictated by the signing physician. Ankita Sandoval nurse practitioner acting as scribe for signing physician.
[2017-11-19] MEDS: MULTIVITAMINS, THERA 1 EACH TAB PO SCH (13:34)
[2017-11-19] MEDS: ONDANSETRON 4 MG/2 ML VIAL IVP PRN (13:34)
--- NOTE | 2017-11-19 14:20 | P.GSCN ---
<KikeNimcoChristine M - Last Filed: 11/19/17 14:01> History of Present Illness Consult date: 11/19/17 Reason for Consult: Drainage around the J-tube History of present illness: 42-year-old male being seen at the request of the attending for surgical eval for greenish drainage around the J-tube site. J-tube was placed by dr espinal August for nutritional support patient gives a history of having 2 separate gastric surgeries for treatment of peptic ulcer disease. Patient in August was hospitalized in the ICU for several weeks. That hospitalization the patient underwent a tracheostomy for respiratory failure and failure to wean. Patient also underwent a J-tube placement for nutritional support. Patient was stabilized at that time and [facility] to be wean to trach collar currently capped patient is able to vocalize. According to the patient was transferred in the last couple days from the rehab to the [facility] facility [place] . Patient stated over the last week he has noted that there've been greenish drainage around the J-tube site with increased skin irritation. Patient has been able to take a diet nursing reports that the patient has taken about 75% of his diet orally been supplemented by tube feeds using the J-tube. Patient's initial presentation this admission from the [facility] facility was with shortness of breath pulmonary participating in the plan of care blood and sputum cultures have been pending influenza screen was negative chest x-ray suggests left-sided pneumonia. Currently patient is sitting up in bed is pleasant oriented cooperative there is a moderate amount of skin excoriation around the J-tube site with greenish drainage no odor swallowing eval done this admission was no difficulty with clearance no overt signs and symptoms of aspiration were observed Review of Systems Essentially unremarkable except as mentioned in the present illness Past Medical History Past Medical History: GERD/Reflux, GI Bleed, Musculoskeletal Disorder Additional Past Medical History / Comment(s): Brittle bone disease, osteoporosis ,neuropathy scoliosis gi problems peptic ulcer disease status post 2 surgeries in 2009 2010 with gastrojejunostomy stenosis. History of Any Multi-Drug Resistant Organisms: None Reported MDRO Source:: Multiple abdominal surgeries related to peptic ulcer disease Past Surgical History: Cholecystectomy Additional Past Surgical History / Comment(s): stomach -tumor(benign) and ulcers Past Anesthesia/Blood Transfusion Reactions: No Reported Reaction Past Psychological History: Anxiety, Depression Smoking Status: Former smoker Past Alcohol Use History: None Reported Past Drug Use History: None Reported - Past Family History Father Family Medical History: Cancer Mother Family Medical History: No Reported History Brother(s) Family Medical History: No Reported History Sister(s) Family Medical History: Renal Disease Daughter(s) Family Medical History: No Reported History Son(s) Family Medical History: No Reported History Medications and Allergies Home Medications Medication Instructions Recorded Confirmed Type Artificial Tears-Hypromellose 1 drops BOTH EYES TID PRN bottle 10/05/17 Rx [Artificial Tear Drops] Citalopram Hydrobromide [Celexa 20 mg PEJ/J-TUBE DAILY #300 ml 10/05/17 Rx Oral Soln] Gabapentin Oral Soln [Neurontin 300 mg PEG/G-TUBE TID #1000 ml 10/05/17 Rx Oral Soln] Heparin Sodium,Porcine [Heparin 5,000 unit SQ Q12HR vial 10/05/17 11/18/17 Rx Sodium] Ipratropium-Albuterol Nebulize 3 ml INHALATION RT-Q2H PRN 10/05/17 11/18/17 Rx [Duoneb 0.5 mg-3 mg/3 ml Soln] ampul.neb Morphine Sulfate [Morphine Sulfate 20 mg PEJ/J-TUBE TID PRN #90 ml 10/05/17 Rx Oral Solution] Multivitamins with Iron, Ped 1 ml PO DAILY #30 ml 10/05/17 11/18/17 Rx [Poly--[place] + Iron Drops (formulary)] Ondansetron [Zofran] 4 mg IVP Q8HR PRN vial 10/05/17 11/18/17 Rx fentaNYL 50MCG/HR PATCH [Duragesic 1 patch TRANSDERM Q72H patch 10/05/17 Rx 50MCG/HR] ALPRAZolam [Xanax] 1 mg PO Q8HR PRN 11/18/17 11/18/17 History Menthol/Zinc Oxide [Calmoseptine 1 applic TOPICAL BID PRN 11/18/17 11/18/17 History Ointment] Nystatin 100,000 Unit/gm Oint 100,000 gm TOPICAL BID 11/18/17 11/18/17 History [Mycostatin Oint] guaiFENesin [guaiFENesin Oral 10 ml PO Q6HR 11/18/17 11/18/17 History Solution] Allergies Allergy/AdvReac Type Severity Reaction Status Date / Time azithromycin [From Zithromax] AdvReac Swelling Verified 11/18/17 09:19 Surgical - Exam Vital Signs Temp Pulse Resp BP Pulse Ox 98.5 F 96 20 140/94 98 11/18/17 02:28 11/18/17 02:28 11/18/17 02:28 11/18/17 02:28 11/18/17 02:28 GENERAL APPEARANCE: thin frail looking older than stated age 42-year-old male patient is alert, oriented, in no acute distress. Pleasant cooperative VITAL SIGNS: Reviewed HEENT: Head is normocephalic and atraumatic. Pupils are equal and reactive. The nares are patent. Oropharynx is clear without lesions. NECK: Supple without lymphadenopathy. Traches midline. HEART: S1, S2. Regular rate and rhythm. Denying chest pain no murmur noted LUNGS: No crackles or wheezes are heard. Posterior left lower lobe diminished. Tracheostomy and place ABDOMEN: Soft, J-tube in place greenish drainage noted on dressing skin excoriation around the J-tube site tenderness from the skin excoriation nontender, nondistended with good bowel sounds. No peritoneal signs. No palpable organomegaly or masses. Urinating no difficulty no stool states taking a diet hungry EXTREMITIES: Muscle wasting to the bilateral upper and lower extremities Radial and pedal pulses are 2/4 bilaterally. Results - Labs 11/19/17 08:54 11/19/17 08:54 Abnormal Lab Results - Last 24 Hours (Table) 11/19/17 11/19/17 11/19/17 Range/Units 07:19 08:54 08:54 WBC 12.2 H (3.8-10.6) k/uL RBC 2.96 L (4.30-5.90) m/uL Hgb 8.5 L (13.0-17.5) gm/dL Hct 29.5 L (39.0-53.0) % MCHC 28.9 L (31.0-37.0) g/dL RDW 17.1 H (11.5-15.5) % Neutrophils # 11.5 H (1.3-7.7) k/uL Lymphocytes # 0.5 L (1.0-4.8) k/uL Carbon Dioxide 31 H (22-30) mmol/L Creatinine 0.26 L (0.66-1.25) mg/dL Glucose 118 H (74-99) mg/dL POC Glucose (mg/dL) 116 H (75-99) mg/dL Calcium 7.9 L (8.4-10.2) mg/dL 11/19/17 Range/Units 12:13 WBC (3.8-10.6) k/uL RBC (4.30-5.90) m/uL Hgb (13.0-17.5) gm/dL Hct (39.0-53.0) % MCHC (31.0-37.0) g/dL RDW (11.5-15.5) % Neutrophils # (1.3-7.7) k/uL Lymphocytes # (1.0-4.8) k/uL Carbon Dioxide (22-30) mmol/L Creatinine (0.66-1.25) mg/dL Glucose (74-99) mg/dL POC Glucose (mg/dL) 135 H (75-99) mg/dL Calcium (8.4-10.2) mg/dL Microbiology - Last 24 Hours (Table) 11/18/17 02:35 Blood Culture - Preliminary Blood No Growth after 24 hours 11/18/17 12:08 Gram Stain - Preliminary Sputum Sputum Culture - Preliminary Diabetes panel 11/19/17 Range/Units 08:54 Sodium 138 (137-145) mmol/L Potassium 3.9 (3.5-5.1) mmol/L Chloride 103 (98-107) mmol/L Carbon Dioxide 31 H (22-30) mmol/L BUN 17 (9-20) mg/dL Creatinine 0.26 L (0.66-1.25) mg/dL Glucose 118 H (74-99) mg/dL Calcium 7.9 L (8.4-10.2) mg/dL Calcium panel 11/19/17 Range/Units 08:54 Calcium 7.9 L (8.4-10.2) mg/dL Pituitary panel 11/19/17 Range/Units 08:54 Sodium 138 (137-145) mmol/L Potassium 3.9 (3.5-5.1) mmol/L Chloride 103 (98-107) mmol/L Carbon Dioxide 31 H (22-30) mmol/L BUN 17 (9-20) mg/dL Creatinine 0.26 L (0.66-1.25) mg/dL Glucose 118 H (74-99) mg/dL Calcium 7.9 L (8.4-10.2) mg/dL Adrenal panel 11/19/17 Range/Units 08:54 Sodium 138 (137-145) mmol/L Potassium 3.9 (3.5-5.1) mmol/L Chloride 103 (98-107) mmol/L Carbon Dioxide 31 H (22-30) mmol/L BUN 17 (9-20) mg/dL Creatinine 0.26 L (0.66-1.25) mg/dL Glucose 118 H (74-99) mg/dL Calcium 7.9 L (8.4-10.2) mg/dL Assessment and Plan Assessment: Impression Previous medical history significant for peptic ulcer disease partial gastrectomy 2 Present on admission Skin excoriation around the J-tube site due to leaking green drainage around the site Severe protein calorie malnutrition with kwashior 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 J-tube placed September 26 2017 for nutritional support (Present on admission sepsis likely due to acute hypoxic respiratory failure from left lower lobe pneumonia Esophageal reflux disease Peptic ulcer disease history of Status post EGD September 24 findings malnutrition secondary to gastrojejunostomy scarring would benefit from an open jejunostomy tube Plan Aspiration precautions Dietitian for calorie count for the next 24 hours Wound care to the skin excoriation around the G-tube site as ordered Further surgical recommendations pending Continue with regular diet DVT and GI prophylaxis Defer to pulmonary for pulmonary management Defer to the attending to address medical issues defer to Surgical consultation note dictated for The above impression and plan of care have been discussed and directed by signing physician. Christine Stokes nurse practitioner acting as scribe for signing physician. <Augustin Espinal - Last Filed: 11/19/17 16:41> Surgical - Exam Vital Signs Temp Pulse Resp BP Pulse Ox 98.5 F 96 20 140/94 98 11/18/17 02:28 11/18/17 02:28 11/18/17 02:28 11/18/17 02:28 11/18/17 02:28 Results - Labs 11/19/17 08:54 11/19/17 08:54 Abnormal Lab Results - Last 24 Hours (Table) 11/19/17 11/19/17 11/19/17 Range/Units 07:19 08:54 08:54 WBC 12.2 H (3.8-10.6) k/uL RBC 2.96 L (4.30-5.90) m/uL Hgb 8.5 L (13.0-17.5) gm/dL Hct 29.5 L (39.0-53.0) % MCHC 28.9 L (31.0-37.0) g/dL RDW 17.1 H (11.5-15.5) % Neutrophils # 11.5 H (1.3-7.7) k/uL Lymphocytes # 0.5 L (1.0-4.8) k/uL Carbon Dioxide 31 H (22-30) mmol/L Creatinine 0.26 L (0.66-1.25) mg/dL Glucose 118 H (74-99) mg/dL POC Glucose (mg/dL) 116 H (75-99) mg/dL Calcium 7.9 L (8.4-10.2) mg/dL 11/19/17 Range/Units 12:13 WBC (3.8-10.6) k/uL RBC (4.30-5.90) m/uL Hgb (13.0-17.5) gm/dL Hct (39.0-53.0) % MCHC (31.0-37.0) g/dL RDW (11.5-15.5) % Neutrophils # (1.3-7.7) k/uL Lymphocytes # (1.0-4.8) k/uL Carbon Dioxide (22-30) mmol/L Creatinine (0.66-1.25) mg/dL Glucose (74-99) mg/dL POC Glucose (mg/dL) 135 H (75-99) mg/dL Calcium (8.4-10.2) mg/dL Microbiology - Last 24 Hours (Table) 11/18/17 12:08 Gram Stain - Preliminary Sputum Sputum Culture - Preliminary Presumptive Staph aureus 11/18/17 02:35 Blood Culture - Preliminary Blood No Growth after 24 hours Diabetes panel 11/19/17 Range/Units 08:54 Sodium 138 (137-145) mmol/L Potassium 3.9 (3.5-5.1) mmol/L Chloride 103 (98-107) mmol/L Carbon Dioxide 31 H (22-30) mmol/L BUN 17 (9-20) mg/dL Creatinine 0.26 L (0.66-1.25) mg/dL Glucose 118 H (74-99) mg/dL Calcium 7.9 L (8.4-10.2) mg/dL Calcium panel 11/19/17 Range/Units 08:54 Calcium 7.9 L (8.4-10.2) mg/dL Pituitary panel 11/19/17 Range/Units 08:54 Sodium 138 (137-145) mmol/L Potassium 3.9 (3.5-5.1) mmol/L Chloride 103 (98-107) mmol/L Carbon Dioxide 31 H (22-30) mmol/L BUN 17 (9-20) mg/dL Creatinine 0.26 L (0.66-1.25) mg/dL Glucose 118 H (74-99) mg/dL Calcium 7.9 L (8.4-10.2) mg/dL Adrenal panel 11/19/17 Range/Units 08:54 Sodium 138 (137-145) mmol/L Potassium 3.9 (3.5-5.1) mmol/L Chloride 103 (98-107) mmol/L Carbon Dioxide 31 H (22-30) mmol/L BUN 17 (9-20) mg/dL Creatinine 0.26 L (0.66-1.25) mg/dL Glucose 118 H (74-99) mg/dL Calcium 7.9 L (8.4-10.2) mg/dL Assessment and Plan Plan: She is eating approximately 70% of his meals. It is unclear if he still needs a J-tube. His J-tube site has evidence of erythema due to chronic leakage of enteric contents around his J-tube. The patient is extremely malnourished. I do not think this will heal by itself. If possible we will remove the J-tube if he is sustaining enough calories. We will follow with you.
--- NOTE | 2017-11-19 14:52 | XR ---
EXAMINATION TYPE: XR chest 2V DATE OF EXAM: 11/19/2017 COMPARISON: Prior chest x-ray 11/18/2017 HISTORY: Pneumonia, cough TECHNIQUE: Frontal and lateral views of the chest are obtained. FINDINGS: Airspace disease present in the retrocardiac region as on prior. Blunting of the left cost ophrenic angle. Tracheostomy tube is overlying the tracheal air column. No evident pneumothorax. Hear t size is stable accounting for differences in technique. Interstitium somewhat prominent. Surgical c lips present in the right upper quadrant. IMPRESSION: Correlate for left lower lobe pneumonia and associated effusion, follow-up to resolution .
[2017-11-19 17:46] LABS: Glucose,Whole Blood 194 mg/dL (75-99)
[2017-11-19] MEDS: CITALOPRAM HYDROBROMIDE 20 MG TAB PO SCH (21:52)
[2017-11-19 21:58] LABS: Glucose,Whole Blood 148 mg/dL (75-99)
[2017-11-20] MEDS: GABAPENTIN 300 MG CAP PO SCH ×4 (00:40→18:07)
[2017-11-20] MEDS: methylPREDNISolone SOD SUCCI 40 MG/ML 1 ML VIAL IV SCH ×3 (00:40→15:56)
[2017-11-20] MEDS: CEFEPIME 2 GM in SODIUM CHLORIDE 0.9% 50 ML IVPB SCH ×3 (00:41→15:54)
[2017-11-20] MEDS: ONDANSETRON 4 MG/2 ML VIAL IVP PRN ×3 (00:42→15:55)
[2017-11-20] MEDS: MORPHINE ORAL SOLN 10 MG/5 ML CUP PO SCH ×3 (02:45→18:07)
[2017-11-20] MEDS: ALPRAZolam 0.5 MG TAB PO PRN ×2 (02:45→11:12)
[2017-11-20 07:45] LABS: Glucose,Whole Blood 122 mg/dL (75-99)
[2017-11-20] MEDS: HEPARIN SODIUM,PORCINE 5,000 UNIT/ML 1 ML VIAL SQ SCH ×2 (08:38→20:36)
[2017-11-20] MEDS: HYDROcodone/APAP 10-325MG 1 EACH TAB PO PRN ×2 (08:39→20:36)
[2017-11-20] MEDS: FORMOTEROL FUMARATE 20 MCG/2 ML NEBU INHALATION SCH ×2 (08:49→19:28)
[2017-11-20] MEDS: IPRATROPIUM-ALBUTEROL 3 ML NEB INHALATION SCH ×4 (08:49→19:28)
[2017-11-20] MEDS: BUDESONIDE 1 MG/2 ML NEBU INHALATION SCH ×2 (08:49→19:28)
--- NOTE | 2017-11-20 10:02 | CDI ---
Last Revision, September 2017 Documentation Clarification Form Date: 11/20/2017 9:36:00 AM From: Amirah ReedCOLLEEN, CCDS Admit Date: 11/18/2017 3:34:00 AM Patient Name: Denys Ramírez Visit Number: [id number] Discharge Date: ATTENTION: The Clinical Documentation Specialists (CDI) and [facility] Coding Staff appreciate your assistance in clarifying documentation. Please respond to the clarification below the line at the bottom and electronically sign. The CDI & [facility] Coding staff will review the response and follow-up if needed. Please note: Queries are made part of the Legal Health Record. If you have any questions, please contact the author of this message via ITS. Dr. Fior Lofton: Sepsis is documented in the History & Physical. History/Risk Factors: Permanent Tracheostomy & PEG tube following prolonged hospitalization with hypoxic respiratory failure secondary aspiration. Clinical Indicators: Presented with increased SOB & phlegm production WBC: WBC 29.8^^, Hgb 9.9*, Hct 33.5*,, Neut 27.71^. Infl A/B negative. Lactic acid: (1.0) Blood cultures: Negative 48 hrs. Sputum cultures: Presumptive Staph aureus. VS: T 98.5, P 96-103^, R 20, BP 140/94^, PO 98 3Lnc Treatment: Albuterol INH, IV Toradol, IV Ativan, IV Levaquin, IV, IV Zosyn, IV Maxipime, IV fluid bolus. Consult: Pulmonary (pneumonia), Surgery: Drainage at G tube site), Infectious Disease (Pneumonia) In your professional opinion, please clarify if these findings signify one of the following conditions, whether the condition is POA, and cause, if known: Sepsis o Due to a specific organism if known: Other, please specify Unable to determine Please continue to document in your progress notes and discharge summary in order to capture severity of illness and risk of mortality. Include clinical findings that support your diagnosis. MTDD
--- NOTE | 2017-11-20 10:57 | P.PN ---
Subjective Progress Note Date: 11/20/17 42-year-old male seen and examined at bedside sitting up in bed. A calorie count is in progress. Patient is currently taking a diet meeting more than 75% . Of caloric needs being followed by surgical service to address the J-tube that has had leakage resulting in erythema around the J-tube insertion site dressing around the J-tube site this morning a small amount of greenish drainage tenderness around the site persist with evidence of erythema Objective - Vital Signs Vital signs: Vital Signs Temp 96.8 F L 11/20/17 07:00 Pulse 88 11/20/17 09:22 Resp 16 11/20/17 07:00 BP 124/77 11/20/17 07:00 Pulse Ox 100 11/20/17 07:00 Intake & Output 11/19/17 11/20/17 11/20/17 18:59 06:59 18:59 Intake Total 240 250 Balance 240 250 Weight 32.659 kg 41 kg Intake: Oral 240 250 Other: Voiding Method Urinal # Voids 3 - Exam Focused exam Abdomen flat nondistended J tube in place clamped with chronic leakage of enteric contents around the J-tube erythema persist. Dressing around the J- tube small amount of greenish drainage noted - Labs CBC & Chem 7: 11/19/17 08:54 11/19/17 08:54 Labs: Abnormal Lab Results - Last 24 Hours (Table) 11/19/17 11/19/17 11/19/17 Range/Units 12:13 17:31 21:48 POC Glucose (mg/dL) 135 H 194 H 148 H (75-99) mg/dL 11/20/17 Range/Units 07:26 POC Glucose (mg/dL) 122 H (75-99) mg/dL Microbiology - Last 24 Hours (Table) 11/18/17 02:35 Blood Culture - Preliminary Blood No Growth after 48 hours 11/18/17 12:08 Gram Stain - Preliminary Sputum Sputum Culture - Preliminary Presumptive Staph aureus Assessment and Plan Assessment: Impression Previous medical history significant for peptic ulcer disease partial gastrectomy 2 Present on admission Skin excoriation around the J-tube site due to leaking green drainage around the site Severe protein calorie malnutrition with kwashior 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 J-tube placed September 26 2017 for nutritional support (Present on admission sepsis likely due to acute hypoxic respiratory failure from left lower lobe pneumonia Esophageal reflux disease History of Peptic ulcer disease Status post EGD September 24 findings malnutrition secondary to gastrojejunostomy scarring would benefit from an open jejunostomy tube Plan Aspiration precautions Dietitian for calorie count for the next 48 hours Wound care to the skin excoriation around the J-tube site as ordered Further surgical recommendations pending Continue with regular diet DVT and GI prophylaxis Defer to pulmonary for pulmonary management Defer to the attending to address medical issues defer to We'll remove the J-tube if patient is abstaining enough calories to meet caloric needs to be determined after calorie count Will follow with you Progress note dictated for Dr. piedra The above impression and plan of care have been discussed and directed by signing physician. Christine Stokes nurse practitioner acting as scribe for signing physician.
[2017-11-20] MEDS ORDERED: VANCOMYCIN IV PER PHARMACY 1 EACH MISC MISCELLANE PRN (10:59)
[2017-11-20 12:16] LABS: Glucose,Whole Blood 207 mg/dL (75-99)
--- NOTE | 2017-11-20 12:16 | P.PN ---
Subjective Progress Note Date: 11/20/17 Principal diagnosis: COPD exacerbation complicated by left-sided pneumonia This is a 42-year-old male who apparently was in our ICU for a number of days and weeks. The patient underwent tracheostomy for respiratory failure and failure to wean. He apparently was transferred to one of the specialized nursing facilities or long-term acute care units. Apparently the patient was weaned there. He apparently was eventually weaned to trach collar and then to nasal prongs. Tracheostomy tube is still in place. The patient was sent then to rehabilitation at [facility] [place]. He's been there for some time. He comes here with complaints of increasing shortness of breath chest congestion and fever chills and phlegm production. The patient just doesn't feel like he is was doing as well as he had been doing. He apparently was evaluated in the emergency room and thought to have pneumonia. Chest x-ray shows retrocardiac infiltrate with some air bronchograms in the left lower lobe and some left midlung infiltrates as well. I'm seeing the patient for COPD exacerbation and left-sided pneumonia. The patient is alert and well. The patient has a tracheostomy tube in place. The patient is receiving nasal oxygen. He does feel better today than yesterday. On 11/19/2017 patient seen in follow-up. Resting comfortably in bed, in no acute distress. Staff suctioning large amount of sputum, solares espinal in color. Patient does have productive cough. Lung sounds are positive for scattered rhonchi bilaterally. Remains afebrile, vital signs are stable, currently on 2 L per nasal cannula set 100%. Labs have been reviewed, WBC is on a downward trend, down to 12.2, hemoglobin is 8.5, sodium is 138, potassium 3.9, CO2 is 31 , B1 17, creatinine 0.26. Influenza screen was negative. Patient is awake, alert, oriented 3. Tracheostomy is in place with a speaking valve. Patient is tolerating oral intake, fair appetite. His on combination of cefepime, Levaquin, Zosyn. Blood and sputum cultures are pending. On 11/20/2017 patient seen in follow-up. Denies any worsening dyspnea, denies at 2 L per nasal cannula, O2 sat at 100%. Afebrile, vitals are stable. Sputum culture shows presumptive staph aureus, blood culture showed no growth at 48 hour prince. Patient continues on cefepime, vancomycin was added by the ID service. Staff is still suctioning moderate amount of espinal colored endotracheal secretions. Patient is tolerating oral intake, states she is trying to increase his oral intake. Calorie count is in progress. Patient was seen by general surgery in regards to the draining jejunostomy tube. Gen. surgery has no plans to replace the tube. If patient can sustain adequate calorie intake, surgery prefers to discontinue it altogether. Chest x-ray from 11/19/2017 has been reviewed and shows left lower lobe pneumonia and associated effusion. Lung sounds sound somewhat improved, although still positive for scattered rhonchi and congested cough. Objective - Vital Signs Vital signs: Vital Signs Temp 96.8 F L 11/20/17 07:00 Pulse 88 11/20/17 09:22 Resp 16 11/20/17 07:00 BP 124/77 11/20/17 07:00 Pulse Ox 100 11/20/17 07:00 Intake & Output 11/19/17 11/20/17 11/20/17 18:59 06:59 18:59 Intake Total 240 250 Balance 240 250 Weight 32.659 kg 41 kg 39 kg Intake: Oral 240 250 Other: Voiding Method Urinal # Voids 3 - Exam No acute distress, oriented 3. HEENT examination is grossly unremarkable. Mucous membranes are moist. No oral lesions. Neck supple. Full range of motion. No adenopathy thyromegaly or neck vein distention. The patient has a midline tracheostomy tube which is fitted with a speaking valve. Cardiovascular examination reveals regular rhythm rate. S1-S2 normal. No S3 or S4. No discernible murmur noted. Lungs reveal diffuse rhonchi. Breath sounds are severely diminished. No wheezes. Breath sounds are equal bilaterally.. Abdomen soft bowel sounds are heard. No masses or tenderness. Right upper quadrant jejunostomy tube is in place, it is leaking green gastric drainage from around the insertion site. The area around the insertion site is excoriated. Extremities are intact. No cyanosis clubbing or edema. Skin is without rash or lesion. Neurologic examination is brief but nonfocal. - Labs CBC & Chem 7: 11/19/17 08:54 11/19/17 08:54 Labs: Abnormal Lab Results - Last 24 Hours (Table) 11/19/17 11/19/17 11/19/17 Range/Units 12:13 17:31 21:48 POC Glucose (mg/dL) 135 H 194 H 148 H (75-99) mg/dL 11/20/17 Range/Units 07:26 POC Glucose (mg/dL) 122 H (75-99) mg/dL Microbiology - Last 24 Hours (Table) 11/18/17 02:35 Blood Culture - Preliminary Blood No Growth after 48 hours 11/18/17 12:08 Gram Stain - Preliminary Sputum Sputum Culture - Preliminary Presumptive Staph aureus Assessment and Plan Plan: Assessment: 1 COPD exacerbation complicated by left-sided pneumonia 2 Status post chronic respiratory failure, with long-term mechanical ventilation and eventual tracheostomy 3 Osteoporosis 4 Gastroesophageal reflux disease 5 GI bleed 6 Scoliosis 7 Peptic ulcer disease 8 Status post cholecystectomy 9 Previous heavy tobacco use Plan: Continue with cefepime and vancomycin per ID recommendation. Will await final cultures. Patient is afebrile, lung sounds are less rhonchorous today, still positive for moderate amount of endotracheal secretions. Her injury recommendations were noted. Calorie count is in progress, hopefully the patient can sustain adequate calorie intake. Recent activity as tolerated. Continue with nebulized treatments. I performed a history & physical examination of the patient and discussed their management with my nurse practitioner, Esthela Garcia. I reviewed the nurse practitioner's note and agree with the documented findings and plan of care. Lung sounds are positive for scattered rhonchi throughout the lung allison. The findings and the impression was discussed with the patient. I attest to the documentation by the nurse practitioner. Time with Patient: Less than 30
[2017-11-20] MEDS: VANCOMYCIN 750 MG in SODIUM CHLORIDE 0.9% 250 ML IVPB SCH ×2 (13:04→20:36)
[2017-11-20] MEDS: MULTIVITAMINS, THERA 1 EACH TAB PO SCH (13:08)
--- NOTE | 2017-11-20 13:11 | CDI ---
Last Revision, September 2017 Documentation Clarification Form Date: 11/20/2017 9:36:00 AM From: Amirah ReedCOLLEEN, CCDS Admit Date: 11/18/2017 3:34:00 AM Patient Name: Denys Ramírez Visit Number: [id number] Discharge Date: ATTENTION: The Clinical Documentation Specialists (CDI) and [facility] Coding Staff appreciate your assistance in clarifying documentation. Please respond to the clarification below the line at the bottom and electronically sign. The CDI & [facility] Coding staff will review the response and follow-up if needed. Please note: Queries are made part of the Legal Health Record. If you have any questions, please contact the author of this message via ITS. Dr. Fior Lofton: Sepsis is documented in the History & Physical. History/Risk Factors: Permanent Tracheostomy & PEG tube following prolonged hospitalization with hypoxic respiratory failure secondary aspiration. Clinical Indicators: Presented with increased SOB & phlegm production WBC: WBC 29.8^^, Hgb 9.9*, Hct 33.5*,, Neut 27.71^. Infl A/B negative. Lactic acid: (1.0) Blood cultures: Negative 48 hrs. Sputum cultures: Presumptive Staph aureus. VS: T 98.5, P 96-103^, R 20, BP 140/94^, PO 98 3Lnc Treatment: Albuterol INH, IV Toradol, IV Ativan, IV Levaquin, IV, IV Zosyn, IV Maxipime, IV fluid bolus Consult: Pulmonary (pneumonia), Surgery: Drainage at G tube site), Infectious Disease (Pneumonia) In your professional opinion, please clarify if these findings signify one of the following conditions, whether the condition is POA, and cause, if known: Sepsis due to a specific organism if known: Other, please specify Unable to determine Please continue to document in your progress notes and discharge summary in order to capture severity of illness and risk of mortality. Include clinical findings that support your diagnosis. MTDD
--- NOTE | 2017-11-20 13:12 | P.PN ---
Subjective Progress Note Date: 11/20/17 This is a 41-year-old male one of Kaiden [place], [place] with a previous medical history significant for peptic ulcer disease was diagnosed initially back in 2009 for which he underwent partial gastrectomy with vagotomy f/by recurrent peptic ulcer disease underwent subtotal gastrectomy with gastrojejunostomy in 2010, and was admitted last year in sep 2017 with significant weight loss and inability to tolerate any diet with recurrent nausea and vomiting and cachexia secondaryt o stricture of the the gastric jejunostomy area and was supposed to get it fixed outpatient but was admitted with AMS and hypoxic respiratory failure secondary aspiration. Patient was intubated twice during his hospital stay and tracheostomy was placed by Dr. Espinal eventually on October 05 for failure to wean. Patient was just [facility] [place] [facility]. He was transitioned to [facility] collar few days after his discharge according to patient. He was doing great and had no difficulty swallowing his meal is currently taking oral pill through his mouth. According to mother bedside patient had fever, chills, phlegm production associated with some congestion and shortness of breath. He wears oxygen intermittently at the facility. Rapid flu was negative. Chest x- ray suggestive of a retrocardiac infiltrate with some air bronchograms in the left lower lobe and left mid lung. Abdomen done in the ER was positive for WBC 29.8, hemoglobin 9.9, creatinine 0.3, albumin 2. Patient is tachycardic, requiring 3 L of oxygen saturating at 96% with blood pressure 101/73. Patient initiated on broad-spectrum antibiotic for acute hypoxic respiratory failure secondary to pneumonia. Antibiotic coverage with cefepime and levofloxacin. Pulmonary consult placed. Speech evaluation to assess swallow. 11/19: Patient has been seen by speech therapy and he is able to eat a regular diet which will be placed. He has not had any nausea or vomiting. Dietitian is also adding in tube feedings. IV fluids will be changed to saline lock. Patient does have significant amount of sputum from his trach area and is being suctioned. Mucinex added. Noted to have J-tube leakage at the site of green liquid. Dr. Espinal will be consulted 11/20: Patient is having less drainage from his trach today and still requires suctioning. He continues to have drainage from the J-tube site and local wound care is Aquacel Ag. He is currently on IV antibiotics with cefepime and vancomycin. He is undergoing calorie count to determine if she tube can be discontinued. Objective - Vital Signs Vital signs: Vital Signs Temp 96.8 F L 11/20/17 07:00 Pulse 88 11/20/17 09:22 Resp 16 11/20/17 07:00 BP 124/77 11/20/17 07:00 Pulse Ox 100 11/20/17 07:00 Intake & Output 11/19/17 11/20/17 11/20/17 18:59 06:59 18:59 Intake Total 240 250 Balance 240 250 Weight 32.659 kg 41 kg Intake: Oral 240 250 Other: Voiding Method Urinal # Voids 3 - Exam - Constitutional General appearance: cooperative, thin - EENT Eyes: EOMI, PERRLA, no photophobia, poor dentition, no scleral icterus Ears: bilateral: normal - Neck Neck: no lymphadenopathy, normal ROM, other (trach collar in place ) Carotids: bilateral: upstroke normal - Respiratory Respiratory: left: diminished, dullness, rhonchi, negative: wheezing - Cardiovascular Rhythm: regular (tachycardic) Heart sounds: normal: S1, S2 Abnormal Heart Sounds: no systolic murmur, no diastolic murmur ankle Peripheral Edema: bilateral: None - Gastrointestinal General gastrointestinal: no distended (J tub with greenish to blackish drainage around the J tube with open ulceration around thesite of J tube, no drainage seen ), normal bowel sounds, soft, no tenderness - Integumentary Integumentary: no calor, normal turgor, no pale, no rash, no ulcer - Neurologic Neurologic: CNII-XII intact - Musculoskeletal Musculoskeletal: generalized weakness, strength equal bilaterally - Psychiatric Psychiatric: A&O x's 3, appropriate affect - Labs CBC & Chem 7: 11/19/17 08:54 11/19/17 08:54 Labs: Abnormal Lab Results - Last 24 Hours (Table) 11/19/17 11/19/17 11/19/17 Range/Units 12:13 17:31 21:48 POC Glucose (mg/dL) 135 H 194 H 148 H (75-99) mg/dL 11/20/17 Range/Units 07:26 POC Glucose (mg/dL) 122 H (75-99) mg/dL Microbiology - Last 24 Hours (Table) 11/18/17 02:35 Blood Culture - Preliminary Blood No Growth after 48 hours 11/18/17 12:08 Gram Stain - Preliminary Sputum Sputum Culture - Preliminary Presumptive Staph aureus Assessment and Plan Plan: 1. Sepsis and acute hypoxemic respiratory failure from left lower lobe pneumonia and COPD. Continue levofloxacin and cefepime . Sputum culture ordered. Continue Pulmicort and Perforomist with DuoNeb for shortness of breath. trach collar in place. Pulmonary recommendation pending regarding D cannulization of the trach. Unclear if patient is still aspirating. 2. Severe protein calorie malnutrition with kwashiorkor thought to be due to significant stenosis of the gastrojejunostomy site. EGD performed by Dr. Espinal and underwent open jejunostomy tube on September 26. COntinue feeding via J tube, Milling Operator consulted and to start tube feedings as well as regular diet. Dr. Espinal consult requested for leakage at the J-tube site. 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 4. Severe hypoalbuminemia secondary to poor oral intake of fluid and severe protein calorie malnutrition with kwashiorkor. Nutrition consult. Ensure with meals 5. History of migraine headache. At stable at this point in time. 6. Chronic pain syndrome. Continue long-acting morphine sulfate, with norco for break through pain, continue gabapentin 7. Bilateral lower extremity neuropathy. Continue gabapentin 300 3 times a day via G-tube 8. DVT prophylaxis. Continue heparin 5000 units subcutaneously every 12 hours. 9. GI prophylaxis. Continue patient on Protonix 40 mg IV push every 24 hours. 10. Patient is full code. 11. Body mass index is 10 12. Acute on chronic blood loss anemia, chronic secondary to severe malnourishment. FOBT on 09/17 was positive. Patient is on iron pills and has dark stool output from J tube. Hb stable. No ulceration was seen during the EGD. Follow-up with gastroenterology as outpatient 13. COPD CODE STATUS: Full code. Discharge plan: [facility] Impression and plan of care have been directed as dictated by the signing physician. Ankita Sandoval nurse practitioner acting as scribe for signing physician.
--- NOTE | 2017-11-20 14:25 | CONS ---
CONSULTATION DATE OF SERVICE: 11/20/2017 REASON FOR CONSULTATION: Pneumonia. HISTORY OF PRESENT ILLNESS: The patient is a 42-year-old male with recent admission to this facility when the patient presented with acute mental status changes, hypoxic respiratory failure secondary to aspiration. Patient was intubated twice during that hospital admission and did require tracheostomy and subsequently discharged to the [facility] for rehabilitation. Patient has been brought back to the [facility] ER with the chief complaints of fever, chills, increasing sputum production, and congestion. On arrival to the ER; however, the patient was afebrile. Patient noticed to have an elevated white count of 29.8. He did have influenza serology that was negative. Patient did have a chest x-ray that was suggestive of a left midlung retrocardiac area which may represent bronchopneumonia. Patient was started on broad-spectrum antibiotic in the form of cefepime and Levaquin. ID was consulted for further recommendation regarding antibiotic therapy. Patient continued to have mild cough but is less productive now. No chest pain. No nausea, vomiting, or any diarrhea. He has been tolerating his tube feeds. REVIEW OF SYSTEMS: CONSTITUTIONAL: Positive for weakness and fever at the retirement. No fever has been recorded here. EYES: No complaint. ENT: No complaint. RESPIRATORY: As per HPI. CARDIOVASCULAR: No complaint. GENITOURINARY: No complaint. GASTROINTESTINAL: No complaint. MUSCULOSKELETAL: No complaint. INTEGUMENTARY: No complaint. PSYCHOLOGICAL: No complaint. ENDOCRINAL: No complaint. NEUROLOGIC: No complaint. PAST MEDICAL HISTORY: Respiratory failure, left lung disease, GI bleed, osteoporosis, neuropathy, peptic ulcer disease, and brittle bone disease. PAST SURGICAL HISTORY: Multiple abdominal surgeries secondary to peptic ulcer disease, gastrojejunostomy, cholecystectomy. SOCIAL HISTORY: Remote history of smoking, no drinking or drug use. FAMILY HISTORY: Father had history of cancer, sister had history of renal disease. ALLERGIES: AZITHROMYCIN. MEDICATIONS: Include the patient is currently on Zofran, Theragran, Solu-Medrol, Robitussin, Neurontin, Celexa, cefepime 2 g q.8, Pulmicort, Xanax, [place]. PHYSICAL EXAMINATION: Blood pressure 124/77 with a pulse of 82, temperature of 96.8. He is 100% 2 L nasal cannula. General description is a middle-aged male lying in bed in no distress. No tachypnea or accessory muscle for respiration use. HEENT examination with pallor, no scleral icterus. Oral mucosa is dry. No pharyngeal erythema or thrush NECK: Trach site looks clean. LUNGS: Unlabored breathing. Some coarse breath sounds bilaterally. No wheeze. HEART: S1, S2. Regular rate and rhythm. No murmur ABDOMEN: Soft, the gastrojejunostomy tube sites with no swelling, no with no guarding no rigidity. EXTREMITIES: No edema of the feet. SKIN EXAMINATION: No rash or mass palpable. NEUROLOGICALLY: Patient is awake, alert, oriented x3. Mood affect normal. LABS: Hemoglobin 8.5, admission white count is 29.8. BUN of 14, creatinine 0.26. Influenza serology was negative. Blood cultures have been negative. Sputum showing presumptive Staph aureus. Chest report as mentioned above. DIAGNOSTIC IMPRESSION AND PLAN: Patient hospital increasing shortness of breath, cough and congestion with left retrocardiac and lower lobe infiltrate, likely a nosocomial pneumonia as the patient has been recently at this facility that did require the intubation ventilation and subsequent tracheostomy for failure to wean. The sputum now showing a Staph aureus could be MRSA though MSSA is not excluded. PLAN: 1. Will add vancomycin, pharmacy to dose target trough of 15. Will need to monitor his kidney function closely to prevent nephrotoxicity associated with vancomycin 2. Cefepime dose just to 2 g q.12 hours. 3. Depending upon his clinical response as well as cultures, will adjust the medications further if needed. Thank you for this consultation, will follow this patient along with you. MMODL / IJN: [id number] / JEVON
[2017-11-20 17:28] LABS: Glucose,Whole Blood 163 mg/dL (75-99)
[2017-11-20] MEDS: CITALOPRAM HYDROBROMIDE 20 MG TAB PO SCH (20:36)
[2017-11-20 21:18] LABS: Glucose,Whole Blood 160 mg/dL (75-99)
[2017-11-20] MEDS ORDERED: ONDANSETRON 4 MG/2 ML VIAL ONE (23:13)
[2017-11-21] MEDS ORDERED: methylPREDNISolone SOD SUCCI 40 MG/ML 1 ML VIAL ONE
[2017-11-21] MEDS ORDERED: GABAPENTIN 300 MG CAP ONE
[2017-11-21] MEDS: ALPRAZolam 0.5 MG TAB PO PRN ×3 (05:22→17:15)
[2017-11-21] MEDS: MORPHINE ORAL SOLN 10 MG/5 ML CUP PO SCH ×3 (05:22→17:16)
[2017-11-21] MEDS: VANCOMYCIN 750 MG in SODIUM CHLORIDE 0.9% 250 ML IVPB SCH ×2 (05:34→11:54)
[2017-11-21 07:51] LABS: Glucose,Whole Blood 101 mg/dL (75-99)
[2017-11-21] MEDS: IPRATROPIUM-ALBUTEROL 3 ML NEB INHALATION SCH ×4 (08:17→19:13)
[2017-11-21] MEDS: FORMOTEROL FUMARATE 20 MCG/2 ML NEBU INHALATION SCH ×2 (08:24→19:13)
[2017-11-21] MEDS: BUDESONIDE 1 MG/2 ML NEBU INHALATION SCH ×2 (08:24→19:13)
[2017-11-21] MEDS: GABAPENTIN 300 MG CAP PO SCH ×5 (08:39→23:53)
[2017-11-21] MEDS: methylPREDNISolone SOD SUCCI 40 MG/ML 1 ML VIAL IV SCH ×2 (08:40→08:46)
[2017-11-21] MEDS: CEFEPIME 2 GM in SODIUM CHLORIDE 0.9% 50 ML IVPB SCH ×2 (08:40→08:43)
[2017-11-21] MEDS: HYDROcodone/APAP 10-325MG 1 EACH TAB PO PRN ×2 (08:43→20:29)
[2017-11-21] MEDS: ONDANSETRON 4 MG/2 ML VIAL IVP PRN ×3 (08:43→22:04)
[2017-11-21] MEDS: HEPARIN SODIUM,PORCINE 5,000 UNIT/ML 1 ML VIAL SQ SCH ×2 (08:46→20:28)
[2017-11-21] MEDS ORDERED: VANCOMYCIN TROUGH DUE 1 EACH MISC MISCELLANE ONE (10:00)
[2017-11-21 10:36] LABS: Anion Gap 5 mmol/L; Blood Urea Nitrogen 11 mg/dL (9-20); Calcium 7.6 mg/dL (8.4-10.2); Carbon Dioxide 32 mmol/L (22-30); Chloride 100 mmol/L (98-107); Glucose 98 mg/dL (74-99); Phosphorus 3.2 mg/dL (2.5-4.5); Potassium 3.3 mmol/L (3.5-5.1); Sodium 137 mmol/L (137-145)
--- NOTE | 2017-11-21 11:43 | P.PN ---
Subjective Progress Note Date: 11/21/17 42-year-old male seen and examined reports that he felt nauseated last evening did vomit continues to feel nauseated this morning not able to take a diet. Currently calorie count is in progress the dietitian following. Dressing around the J-tube site currently is dry. Skin remains excoriated around the disc of the RASHEED drain tube feeds for the past 24 hours have been held CALORIE count is in progress achieving approximately 50% of caloric needs patient verbalizes concerns about not being able to eat enough with a nausea sensation to meet his caloric needs patient is requesting that the J-tube be left in for a couple weeks until he can tolerate a diet Objective - Vital Signs Vital signs: Vital Signs Temp 97.6 F 11/21/17 07:00 Pulse 84 11/21/17 08:58 Resp 16 11/21/17 08:58 BP 118/67 11/21/17 07:00 Pulse Ox 98 11/21/17 07:00 Intake & Output 11/20/17 11/21/17 11/21/17 18:59 06:59 18:59 Intake Total 0 Output Total 550 525 Balance -550 -525 Weight 39 kg 36 kg Intake: Oral 0 Output: Urine 350 525 Emesis 200 Other: Voiding Method Urinal - Exam Focused exam Abdomen flat nondistended J tube in place clamped with chronic leakage of enteric contents around the J-tube erythema persist. Current dressing around the disc the RASHEED drain is dry nursing reports has been less drainage from the RASHEED site that this morning patient is reporting a nausea sensation did vomit last night tube feeds are on hold calorie count is in progress - Labs CBC & Chem 7: 11/21/17 09:47 11/21/17 09:47 Labs: Abnormal Lab Results - Last 24 Hours (Table) 11/20/17 11/20/17 11/20/17 Range/Units 12:01 17:25 21:15 Potassium (3.5-5.1) mmol/L Carbon Dioxide (22-30) mmol/L Creatinine (0.66-1.25) mg/dL POC Glucose (mg/dL) 207 H 163 H 160 H (75-99) mg/dL Calcium (8.4-10.2) mg/dL 11/21/17 11/21/17 Range/Units 07:38 09:47 Potassium 3.3 L (3.5-5.1) mmol/L Carbon Dioxide 32 H (22-30) mmol/L Creatinine 0.31 L (0.66-1.25) mg/dL POC Glucose (mg/dL) 101 H (75-99) mg/dL Calcium 7.6 L (8.4-10.2) mg/dL Microbiology - Last 24 Hours (Table) 11/18/17 12:08 Gram Stain - Final Sputum Sputum Culture - Final Staphylococcus aureus 11/18/17 02:35 Blood Culture - Preliminary Blood No Growth after 72 hours Assessment and Plan Assessment: Impression Previous medical history significant for peptic ulcer disease partial gastrectomy 2 Present on admission Skin excoriation around the J-tube site due to leaking green drainage around the site Severe protein calorie malnutrition with kwashior 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 J-tube placed September 26 2017 for nutritional support (Present on admission sepsis likely due to acute hypoxic respiratory failure from left lower lobe pneumonia Esophageal reflux disease History of Peptic ulcer disease Status post EGD September 24 findings malnutrition secondary to gastrojejunostomy scarring would benefit from an open jejunostomy tube Present on admission stage I decubitus on the coccyx area Plan Would restart tube feeds through the J-tube and evaluate response Aspiration precautions Dietitian for calorie count for the next 48 hours Wound care to the skin excoriation around the J-tube site as ordered Further surgical recommendations pending Continue with regular diet DVT and GI prophylaxis Defer to pulmonary for pulmonary management Defer to the attending to address medical issues defer to We'll remove the J-tube if patient is abstaining enough calories to meet caloric needs to be determined after calorie count Will follow with you Progress note dictated for Dr. piedra The above impression and plan of care have been discussed and directed by signing physician. Christine Stokes nurse practitioner acting as scribe for signing physician.
[2017-11-21 11:45] LABS: Anisocytosis Slight; Basophils % (A) 0 %; Eosinophils % (A) 0 %; HCT 25.8 % (39.0-53.0); HGB 7.7 gm/dL (13.0-17.5); Hypochromasia Marked; Lymphocytes % (A) 7 %; MCH 29.8 pg (25.0-35.0); MCV 99.4 fL (80.0-100.0); Macrocytosis Slight; Mean Platelet Volume 8.4; Monocytes # (A) 0.5 k/uL (0-1.0); Monocytes % (A) 3 %; Neutrophils # (A) 12.9 k/uL (1.3-7.7); Neutrophils % (A) 89 %; Platelet Count 365 k/uL (150-450); RBC 2.59 m/uL (4.30-5.90); RDW 17.3 % (11.5-15.5); WBC 14.5 k/uL (3.8-10.6)
[2017-11-21 12:02] LABS: Glucose,Whole Blood 116 mg/dL (75-99)
--- NOTE | 2017-11-21 12:53 | P.PN ---
Subjective Progress Note Date: 11/21/17 This is a 41-year-old male one of Kaiden Matute [place], [place] with a previous medical history significant for peptic ulcer disease was diagnosed initially back in 2009 for which he underwent partial gastrectomy with vagotomy f/by recurrent peptic ulcer disease underwent subtotal gastrectomy with gastrojejunostomy in 2010, and was admitted last year in sep 2017 with significant weight loss and inability to tolerate any diet with recurrent nausea and vomiting and cachexia secondaryt o stricture of the the gastric jejunostomy area and was supposed to get it fixed outpatient but was admitted with AMS and hypoxic respiratory failure secondary aspiration. Patient was intubated twice during his hospital stay and tracheostomy was placed by Dr. Espinal eventually on October 05 for failure to wean. [facility] [place] [facility]. [facility] few days after his discharge according to patient. He was doing great and had no difficulty swallowing his meal is currently taking oral pill through his mouth. According to mother bedside patient had fever, chills, phlegm production associated with some congestion and shortness of breath. He wears oxygen intermittently at the facility. Rapid flu was negative. Chest x- ray suggestive of a retrocardiac infiltrate with some air bronchograms in the left lower lobe and left mid lung. Abdomen done in the ER was positive for WBC 29.8, hemoglobin 9.9, creatinine 0.3, albumin 2. Patient is tachycardic, requiring 3 L of oxygen saturating at 96% with blood pressure 101/73. Patient initiated on broad-spectrum antibiotic for acute hypoxic respiratory failure secondary to pneumonia. Antibiotic coverage with cefepime and levofloxacin. Pulmonary consult placed. Speech evaluation to assess swallow. 11/19: Patient has been seen by speech therapy and he is able to eat a regular diet which will be placed. He has not had any nausea or vomiting. Dietitian is also adding in tube feedings. IV fluids will be changed to saline lock. Patient does have significant amount of sputum from his trach area and is being suctioned. Mucinex added. Noted to have J-tube leakage at the site of green liquid. Dr. Espinal will be consulted 11/20: Patient is having less drainage from his trach today and still requires suctioning. He continues to have drainage from the J-tube site and local wound care is Aquacel Ag. He is currently on IV antibiotics with cefepime and vancomycin. He is undergoing calorie count to determine if she tube can be discontinued. 11/21: Patient is complaining of his stomach feeling swollen and pain. He did not have a bowel movement today. Patient did not meet the calorie count requirements to have his J-tube removed. Surgery is looking at possibly replacing it due to drainage at the site. Sputum culture is reported as MSSA and vanco will be discontinued. Solu-Medrol will be discontinued. WBC is currently at 14.5 and hemoglobin 7.7, potassium will be replaced Objective - Vital Signs Vital signs: Vital Signs Temp 97.6 F 11/21/17 07:00 Pulse 84 11/21/17 08:58 Resp 16 11/21/17 08:58 BP 118/67 11/21/17 07:00 Pulse Ox 98 11/21/17 07:00 Intake & Output 11/20/17 11/21/17 11/21/17 18:59 06:59 18:59 Intake Total 0 Output Total 550 525 Balance -550 -525 Weight 39 kg 36 kg Intake: Oral 0 Output: Urine 350 525 Emesis 200 Other: Voiding Method Urinal - Exam - Constitutional General appearance: cooperative, thin - EENT Eyes: EOMI, PERRLA, no photophobia, poor dentition, no scleral icterus Ears: bilateral: normal - Neck Neck: no lymphadenopathy, normal ROM, other (trach collar in place ) Carotids: bilateral: upstroke normal - Respiratory Respiratory: left: diminished, dullness, rhonchi, negative: wheezing - Cardiovascular Rhythm: regular (tachycardic) Heart sounds: normal: S1, S2 Abnormal Heart Sounds: no systolic murmur, no diastolic murmur ankle Peripheral Edema: bilateral: None - Gastrointestinal General gastrointestinal: no distended (J tub with greenish to blackish drainage around the J tube with open ulceration around thesite of J tube, no drainage seen ), normal bowel sounds, soft, no tenderness - Integumentary Integumentary: no calor, normal turgor, no pale, no rash, no ulcer - Neurologic Neurologic: CNII-XII intact - Musculoskeletal Musculoskeletal: generalized weakness, strength equal bilaterally - Psychiatric Psychiatric: A&O x's 3, appropriate affect - Labs CBC & Chem 7: 11/21/17 09:47 11/21/17 09:47 Labs: Abnormal Lab Results - Last 24 Hours (Table) 11/20/17 11/20/17 11/20/17 Range/Units 12:01 17:25 21:15 Potassium (3.5-5.1) mmol/L Carbon Dioxide (22-30) mmol/L Creatinine (0.66-1.25) mg/dL POC Glucose (mg/dL) 207 H 163 H 160 H (75-99) mg/dL Calcium (8.4-10.2) mg/dL 11/21/17 11/21/17 Range/Units 07:38 09:47 Potassium 3.3 L (3.5-5.1) mmol/L Carbon Dioxide 32 H (22-30) mmol/L Creatinine 0.31 L (0.66-1.25) mg/dL POC Glucose (mg/dL) 101 H (75-99) mg/dL Calcium 7.6 L (8.4-10.2) mg/dL Microbiology - Last 24 Hours (Table) 11/18/17 12:08 Gram Stain - Final Sputum Sputum Culture - Final Staphylococcus aureus 11/18/17 02:35 Blood Culture - Preliminary Blood No Growth after 72 hours Assessment and Plan Plan: 1. Sepsis and acute hypoxemic respiratory failure from left lower lobe MSSA pneumonia and COPD. Continue cefepime. Sputum culture as above. Continue Pulmicort and Perforomist with DuoNeb for shortness of breath. trach collar in place. Pulmonary recommendation pending regarding D cannulization of the trach. Unclear if patient is still aspirating. 2. Severe protein calorie malnutrition with kwashiorkor thought to be due to significant stenosis of the gastrojejunostomy site. EGD performed by Dr. Espinal and underwent open jejunostomy tube on September 26. COntinue feeding via J tube. Dr. Espinal consult requested for leakage at the J-tube site. 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 4. Severe hypoalbuminemia secondary to poor oral intake of fluid and severe protein calorie malnutrition with kwashiorkor. Nutrition consult. Ensure with meals 5. History of migraine headache. Stable at this point in time. 6. Chronic pain syndrome. Continue long-acting morphine sulfate, with norco for break through pain, continue gabapentin 7. Bilateral lower extremity neuropathy. Continue gabapentin 300 3 times a day via G-tube 8. DVT prophylaxis. Continue heparin 5000 units subcutaneously every 12 hours. 9. GI prophylaxis. Continue patient on Protonix 40 mg IV push every 24 hours. 10. Patient is full code. 11. Body mass index is 10 12. Acute on chronic blood loss anemia, chronic secondary to severe malnourishment. FOBT on 09/17 was positive. Patient is on iron pills and has dark stool output from J tube. Hb stable. No ulceration was seen during the EGD. Follow-up with gastroenterology as outpatient 13. COPD CODE STATUS: Full code. [facility] Impression and plan of care have been directed as dictated by the signing physician. Ankita Sandoval nurse practitioner acting as scribe for signing physician.
[2017-11-21] MEDS ORDERED: POTASSIUM CHLORIDE ORAL LIQUID 40 MEQ/30 ML CUP PEJ/J-Tube ONE (13:00)
[2017-11-21] MEDS: PANTOPRAZOLE 40 MG/10 ML VIAL IVP SCH ×2 (13:35→20:27)
[2017-11-21] MEDS: MULTIVITAMINS, THERA 1 EACH TAB PO SCH (14:45)
--- NOTE | 2017-11-21 15:33 | P.PN ---
<Esthela Garcia M - Last Filed: 11/21/17 15:20> Subjective Progress Note Date: 11/21/17 Principal diagnosis: COPD exacerbation complicated by left-sided pneumonia This is a 42-year-old male who apparently was in our ICU for a number of days and weeks. The patient underwent tracheostomy for respiratory failure and failure to wean. He apparently was transferred to one of the specialized nursing facilities or long-term acute care units. Apparently the patient was weaned there. He apparently was eventually weaned to trach collar and then to nasal prongs. Tracheostomy tube is still in place. The patient was sent then to rehabilitation at [facility]. He's been there for some time. He comes here with complaints of increasing shortness of breath chest congestion and fever chills and phlegm production. The patient just doesn't feel like he is was doing as well as he had been doing. He apparently was evaluated in the emergency room and thought to have pneumonia. Chest x-ray shows retrocardiac infiltrate with some air bronchograms in the left lower lobe and some left midlung infiltrates as well. I'm seeing the patient for COPD exacerbation and left-sided pneumonia. The patient is alert and well. The patient has a tracheostomy tube in place. The patient is receiving nasal oxygen. He does feel better today than yesterday. On 11/19/2017 patient seen in follow-up. Resting comfortably in bed, in no acute distress. Staff suctioning large amount of sputum, solares espinal in color. Patient does have productive cough. Lung sounds are positive for scattered rhonchi bilaterally. Remains afebrile, vital signs are stable, currently on 2 L per nasal cannula set 100%. Labs have been reviewed, WBC is on a downward trend, down to 12.2, hemoglobin is 8.5, sodium is 138, potassium 3.9, CO2 is 31 , B1 17, creatinine 0.26. Influenza screen was negative. Patient is awake, alert, oriented 3. Tracheostomy is in place with a speaking valve. Patient is tolerating oral intake, fair appetite. His on combination of cefepime, Levaquin, Zosyn. Blood and sputum cultures are pending. On 11/20/2017 patient seen in follow-up. Denies any worsening dyspnea, denies at 2 L per nasal cannula, O2 sat at 100%. Afebrile, vitals are stable. Sputum culture shows presumptive staph aureus, blood culture showed no growth at 48 hour prince. Patient continues on cefepime, vancomycin was added by the ID service. Staff is still suctioning moderate amount of espinal colored endotracheal secretions. Patient is tolerating oral intake, states she is trying to increase his oral intake. Calorie count is in progress. Patient was seen by general surgery in regards to the draining jejunostomy tube. Gen. surgery has no plans to replace the tube. If patient can sustain adequate calorie intake, surgery prefers to discontinue it altogether. Chest x-ray from 11/19/2017 has been reviewed and shows left lower lobe pneumonia and associated effusion. Lung sounds sound somewhat improved, although still positive for scattered rhonchi and congested cough. On 11/21/2017 patient seen in follow-up on medical surgical floor. Currently sitting up in the chair, in no acute distress. He on 2 L per nasal cannula with O2 sat at 98%, afebrile, vital signs are stable. He is eating between 75% of his meals, his tube feedings are currently on hold. The J-tube insertion site looks dry today, with decreased drainage from around the insertion site, less irritated and excoriated. Patient would like to keep it for another week, see if he can sustain his oral intake to maintain his caloric requirements. His sputum culture shows MSSA. Currently on Rocephin, cefepime was discontinued , vancomycin was discontinued as well. ID service is following. Lung sounds continue to improve, with better aeration, still positive for some scattered rhonchi, staff still suctions espinal colored secretions from endotracheal stoma. Objective - Vital Signs Vital signs: Vital Signs Temp 97.6 F 11/21/17 07:00 Pulse 92 11/21/17 11:58 Resp 16 11/21/17 08:58 BP 118/67 11/21/17 07:00 Pulse Ox 98 11/21/17 07:00 Intake & Output 11/20/17 11/21/17 11/21/17 18:59 06:59 18:59 Intake Total 0 Output Total 550 850 Balance -550 -850 Weight 39 kg 36 kg 36 kg Intake: Oral 0 Output: Urine 350 850 Emesis 200 Other: Voiding Method Urinal # Voids 3 - Exam No acute distress, oriented 3. HEENT examination is grossly unremarkable. Mucous membranes are moist. No oral lesions. Neck supple. Full range of motion. No adenopathy thyromegaly or neck vein distention. The patient has a midline tracheostomy tube which is fitted with a speaking valve. Cardiovascular examination reveals regular rhythm rate. S1-S2 normal. No S3 or S4. No discernible murmur noted. Lungs reveal diffuse rhonchi. Breath sounds are severely diminished. No wheezes. Breath sounds are equal bilaterally.. Abdomen soft bowel sounds are heard. No masses or tenderness. Right upper quadrant jejunostomy tube is in place, no drainage was noted from around the insertion site today, the area around the insertion site is still red, but less excoriated and irritated. Extremities are intact. No cyanosis clubbing or edema. Skin is without rash or lesion. Neurologic examination is brief but nonfocal. - Labs CBC & Chem 7: 11/21/17 09:47 11/21/17 09:47 Labs: Abnormal Lab Results - Last 24 Hours (Table) 11/20/17 11/20/17 11/21/17 Range/Units 17:25 21:15 07:38 WBC (3.8-10.6) k/uL RBC (4.30-5.90) m/uL Hgb (13.0-17.5) gm/dL Hct (39.0-53.0) % MCHC (31.0-37.0) g/dL RDW (11.5-15.5) % Neutrophils # (1.3-7.7) k/uL Potassium (3.5-5.1) mmol/L Carbon Dioxide (22-30) mmol/L Creatinine (0.66-1.25) mg/dL POC Glucose (mg/dL) 163 H 160 H 101 H (75-99) mg/dL Calcium (8.4-10.2) mg/dL 11/21/17 11/21/17 11/21/17 Range/Units 09:47 09:47 12:00 WBC 14.5 H (3.8-10.6) k/uL RBC 2.59 L (4.30-5.90) m/uL Hgb 7.7 L (13.0-17.5) gm/dL Hct 25.8 L (39.0-53.0) % MCHC 30.0 L (31.0-37.0) g/dL RDW 17.3 H (11.5-15.5) % Neutrophils # 12.9 H (1.3-7.7) k/uL Potassium 3.3 L (3.5-5.1) mmol/L Carbon Dioxide 32 H (22-30) mmol/L Creatinine 0.31 L (0.66-1.25) mg/dL POC Glucose (mg/dL) 116 H (75-99) mg/dL Calcium 7.6 L (8.4-10.2) mg/dL Microbiology - Last 24 Hours (Table) 11/18/17 12:08 Gram Stain - Final Sputum Sputum Culture - Final Staphylococcus aureus 11/18/17 02:35 Blood Culture - Preliminary Blood No Growth after 72 hours Assessment and Plan Plan: Assessment: 1 COPD exacerbation complicated by left-sided pneumonia, sputum cultures positive for MSSA, patient is currently Rocephin, vancomycin was discontinued per ID service. 2 Status post chronic respiratory failure, with long-term mechanical ventilation and eventual tracheostomy 3 Severe protein calorie malnutrition with kwashiorkor, patient was being supplemented by tube feedings through the jejunostomy . Currently trying to increase his oral intake to meet caloric requirements. Jejunostomy tube is having significant leakage from around the insertion site. Surgery is following 3 Osteoporosis 4 Gastroesophageal reflux disease 5 GI bleed 6 Scoliosis 7 Peptic ulcer disease 8 Status post cholecystectomy 9 Previous heavy tobacco use or graft 10 chronic anemia, secondary to severe malnutrition, on iron supplementations Plan: Continue with Rocephin per ID recommendations. Patient is afebrile, continue increasing activity as tolerated, endotracheal suctioning as needed. Calorie count is in progress, hopefully the patient can sustain adequate calorie intake. Continue nebulized treatments, DuoNeb, Pulmicort, Perforomist. I performed a history & physical examination of the patient and discussed their management with my nurse practitioner, Esthela Garcia. I reviewed the nurse practitioner's note and agree with the documented findings and plan of care. Lung sounds are positive for scattered rhonchi throughout the lung allison. The findings and the impression was discussed with the patient. I attest to the documentation by the nurse practitioner. Time with Patient: Less than 30 <Precious Coulter - Last Filed: 11/21/17 18:23> Objective - Vital Signs Vital signs: Vital Signs Temp 97.8 F 11/21/17 15:00 Pulse 88 11/21/17 15:46 Resp 16 11/21/17 15:00 BP 120/68 11/21/17 15:00 Pulse Ox 98 11/21/17 15:00 Intake & Output 11/20/17 11/21/17 11/21/17 18:59 06:59 18:59 Intake Total 0 Output Total 550 850 Balance -550 -850 Weight 39 kg 36 kg 36 kg Intake: Oral 0 Output: Urine 350 850 Emesis 200 Other: Voiding Method Urinal # Voids 3 - Labs CBC & Chem 7: 11/21/17 09:47 11/21/17 09:47 Labs: Abnormal Lab Results - Last 24 Hours (Table) 11/20/17 11/21/17 11/21/17 Range/Units 21:15 07:38 09:47 WBC (3.8-10.6) k/uL RBC (4.30-5.90) m/uL Hgb (13.0-17.5) gm/dL Hct (39.0-53.0) % MCHC (31.0-37.0) g/dL RDW (11.5-15.5) % Neutrophils # (1.3-7.7) k/uL Potassium 3.3 L (3.5-5.1) mmol/L Carbon Dioxide 32 H (22-30) mmol/L Creatinine 0.31 L (0.66-1.25) mg/dL POC Glucose (mg/dL) 160 H 101 H (75-99) mg/dL Calcium 7.6 L (8.4-10.2) mg/dL 11/21/17 11/21/17 11/21/17 Range/Units 09:47 12:00 17:12 WBC 14.5 H (3.8-10.6) k/uL RBC 2.59 L (4.30-5.90) m/uL Hgb 7.7 L (13.0-17.5) gm/dL Hct 25.8 L (39.0-53.0) % MCHC 30.0 L (31.0-37.0) g/dL RDW 17.3 H (11.5-15.5) % Neutrophils # 12.9 H (1.3-7.7) k/uL Potassium (3.5-5.1) mmol/L Carbon Dioxide (22-30) mmol/L Creatinine (0.66-1.25) mg/dL POC Glucose (mg/dL) 116 H 109 H (75-99) mg/dL Calcium (8.4-10.2) mg/dL Microbiology - Last 24 Hours (Table) 11/18/17 12:08 Gram Stain - Final Sputum Sputum Culture - Final Staphylococcus aureus 11/18/17 02:35 Blood Culture - Preliminary Blood No Growth after 72 hours Assessment and Plan Plan: a joint evaluations was done along with a nurse practitioner. I tested above- mentioned information. We discussed the possibility of removing the J-tube. I think the surgeon is agreeable knowing that the patient is a eating 50-75% of his food and he is getting adequate caloric intake. Nevertheless, the patient opted to keep the tube and for any issues that may arise in the future. We'll keep the tube for another week or 2 with close attention of the insertion site to make sure there is no erosion of the abdominal wall with the J-tube. We'll continue to follow.
[2017-11-21] MEDS: cefTRIAXone IN SWFI 2,000 MG/20 ML SYRINGE IVP SCH (17:15)
--- NOTE | 2017-11-21 17:15 | XR ---
EXAMINATION: XR chest 3V DATE AND TIME: 11/21/2017 5:04 PM ORDERING PROVIDER: Naren Mclaughlin CLINICAL INDICATION: Pneumonia f/u TECHNIQUE: One lateral and 2 frontal views COMPARISON: 11/19/2017 DESCRIPTION: Tracheostomy tube tip mid trachea. Overall lung inflation is similar to the prior study. The dense left lower lobe consolidation with ai r bronchograms is redemonstrated, with little if any interval change. The mild pattern of scattered g roundglass opacity throughout the remaining lung parenchyma is unaltered. There is no pneumothorax. No other abnormal gas collection. Bones and soft tissues are unremarkable. IMPRESSION: STABLE APPEARANCE WHEN COMPARED TO THE RADIOGRAPH 2 DAYS AGO; NO NEW FINDINGS.
[2017-11-21 17:22] LABS: Glucose,Whole Blood 109 mg/dL (75-99)
--- NOTE | 2017-11-21 19:11 | PN ---
PROGRESS NOTE DATE OF SERVICE: 11/21/2017 REASON FOR FOLLOWUP: Pneumonia. INTERVAL HISTORY: The patient is afebrile. He seems to be breathing more comfortably. No chest pain. Minimal cough. No nausea. No vomiting. No abdominal pain or any diarrhea. PHYSICAL EXAMINATION: Blood pressure is 118/67 with a pulse of 84, temperature of 97.6. He is 98% on 3 L nasal cannula. General description is a middle-aged male lying in bed in no distress. RESPIRATORY SYSTEM: Unlabored breathing. Decreased intensity of breath sounds. No wheeze. HEART: S1, S2. Regular rate and rhythm. ABDOMEN: Soft. No tenderness. LABS: Hemoglobin 7.7, white count 14.5, BUN of 11, creatinine 0.31. Sputum culture with Staph aureus, MSSA. Blood culture remains negative. DIAGNOSTIC IMPRESSION AND PLAN: Patient admitted to hospital with pneumonia. Sputum has MSSA. Antibiotic will be adjusted to Rocephin 2 grams daily. Will repeat a chest x-ray to see how much of the pneumonia has improved; that will determine the discharge antibiotics. Continue with supportive care. MMODL / IJN: [id number] /
[2017-11-21 20:28] LABS: Glucose,Whole Blood 107 mg/dL (75-99)
[2017-11-21] MEDS: CITALOPRAM HYDROBROMIDE 20 MG TAB PO SCH (20:29)
[2017-11-22] MEDS: MORPHINE ORAL SOLN 10 MG/5 ML CUP PO SCH ×3 (03:05→18:25)
[2017-11-22] MEDS: ALPRAZolam 0.5 MG TAB PO PRN ×3 (03:06→18:25)
[2017-11-22] MEDS: GABAPENTIN 300 MG CAP PO SCH ×4 (06:14→22:48)
[2017-11-22 07:54] LABS: Glucose,Whole Blood 84 mg/dL (75-99)
[2017-11-22] MEDS: FORMOTEROL FUMARATE 20 MCG/2 ML NEBU INHALATION SCH ×2 (08:20→19:06)
[2017-11-22] MEDS: BUDESONIDE 1 MG/2 ML NEBU INHALATION SCH ×2 (08:20→19:06)
[2017-11-22] MEDS: IPRATROPIUM-ALBUTEROL 3 ML NEB INHALATION SCH ×4 (08:21→19:07)
[2017-11-22] MEDS: ONDANSETRON 4 MG/2 ML VIAL IVP PRN ×4 (08:23→21:16)
[2017-11-22] MEDS: HYDROcodone/APAP 10-325MG 1 EACH TAB PO PRN ×2 (08:23→21:14)
[2017-11-22] MEDS: cefTRIAXone IN SWFI 2,000 MG/20 ML SYRINGE IVP SCH (08:24)
[2017-11-22] MEDS: HEPARIN SODIUM,PORCINE 5,000 UNIT/ML 1 ML VIAL SQ SCH ×2 (08:24→21:58)
[2017-11-22] MEDS: PANTOPRAZOLE 40 MG TABLET PO SCH ×2 (08:25→20:45)
[2017-11-22 10:51] LABS: Basophils % (A) 0 %; Eosinophils # (A) 0.1 k/uL (0-0.7); Eosinophils % (A) 1 %; HCT 29.3 % (39.0-53.0); HGB 8.5 gm/dL (13.0-17.5); Hypochromasia Marked; Lymphocytes % (A) 9 %; MCH 28.1 pg (25.0-35.0); MCHC 28.9 g/dL (31.0-37.0); Mean Platelet Volume 7.6; Monocytes # (A) 0.6 k/uL (0-1.0); Monocytes % (A) 5 %; Neutrophils # (A) 9.8 k/uL (1.3-7.7); Neutrophils % (A) 85 %; Platelet Count 407 k/uL (150-450); RBC 3.02 m/uL (4.30-5.90); RDW 15.9 % (11.5-15.5); WBC 11.6 k/uL (3.8-10.6)
--- NOTE | 2017-11-22 11:08 | P.PN ---
Subjective Progress Note Date: 11/22/17 41-year-old male seen and examined at bedside. Patient is sitting up in bed. 24-hour calorie count in progress. Patient reportedly is able to achieve 50-75 % of caloric needs by taking a diet. Patient is verbalizing that he would like the J-tube to be left in for nutritional support. The dietitian is recommending nighttime feeds through the J-tube with oral calories during the day. Patient is verbalizing understanding of the plan and is in agreement this been no further leakage around the J-tube this morning Objective - Vital Signs Vital signs: Vital Signs Temp 97.5 F L 11/22/17 07:00 Pulse 76 11/22/17 08:30 Resp 16 11/22/17 07:00 BP 125/84 11/22/17 07:00 Pulse Ox 98 11/22/17 07:00 Intake & Output 11/21/17 11/22/17 11/22/17 18:59 06:59 18:59 Intake Total 0 Output Total 850 400 450 Balance -850 -400 -450 Weight 36 kg 35.5 kg 35.5 kg Intake: Oral 0 Output: Urine 850 400 450 Other: Voiding Method Urinal Urinal # Voids 3 - Exam Focused exam Abdomen flat nondistended J tube in place clamped no leakage around the J-tube dressing is dry around the J-tube erythema improving less tender Current dressing around the disc the RASHEED drain is dry nursing reports has patient has been taking a diet 50-75% - Labs CBC & Chem 7: 11/22/17 10:06 11/21/17 09:47 Labs: Abnormal Lab Results - Last 24 Hours (Table) 11/21/17 11/21/17 11/21/17 Range/Units 09:47 12:00 17:12 WBC 14.5 H (3.8-10.6) k/uL RBC 2.59 L (4.30-5.90) m/uL Hgb 7.7 L (13.0-17.5) gm/dL Hct 25.8 L (39.0-53.0) % MCHC 30.0 L (31.0-37.0) g/dL RDW 17.3 H (11.5-15.5) % Neutrophils # 12.9 H (1.3-7.7) k/uL POC Glucose (mg/dL) 116 H 109 H (75-99) mg/dL 11/21/17 11/22/17 Range/Units 20:27 10:06 WBC 11.6 H (3.8-10.6) k/uL RBC 3.02 L (4.30-5.90) m/uL Hgb 8.5 L (13.0-17.5) gm/dL Hct 29.3 L (39.0-53.0) % MCHC 28.9 L (31.0-37.0) g/dL RDW 15.9 H (11.5-15.5) % Neutrophils # 9.8 H (1.3-7.7) k/uL POC Glucose (mg/dL) 107 H (75-99) mg/dL Microbiology - Last 24 Hours (Table) 11/18/17 02:35 Blood Culture - Preliminary Blood No Growth after 96 hours 11/18/17 12:08 Gram Stain - Final Sputum Sputum Culture - Final Staphylococcus aureus Assessment and Plan Assessment: Impression Previous medical history significant for peptic ulcer disease partial gastrectomy 2 Present on admission Skin excoriation around the J-tube site due to leaking green drainage around the site Severe protein calorie malnutrition with kwashior 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 J-tube placed September 26 2017 for nutritional support (Present on admission sepsis likely due to acute hypoxic respiratory failure from left lower lobe pneumonia Esophageal reflux disease History of Peptic ulcer disease Status post EGD September 24 findings malnutrition secondary to gastrojejunostomy scarring would benefit from an open jejunostomy tube Present on admission stage I decubitus on the coccyx area Plan agree with restart tube feeds through the J-tube for nighttime tube feeds and evaluate response Aspiration precautions Dietitian for calorie count for the next 48 hours Wound care to the skin excoriation around the J-tube site as ordered Continue with regular diet DVT and GI prophylaxis Defer to pulmonary for pulmonary management Defer to the attending to address medical issues defer to would continue with J-tube for nighttime tube feeds can be reevaluated in the outpatient setting if continues to meet caloric needs in the future J-tube could be removed Will follow with you Progress note dictated for Dr. piedra The above impression and plan of care have been discussed and directed by signing physician. Christine Stokes nurse practitioner acting as scribe for signing physician.
[2017-11-22 11:11] LABS: Anion Gap 4 mmol/L; Blood Urea Nitrogen 5 mg/dL (9-20); Calcium 7.3 mg/dL (8.4-10.2); Carbon Dioxide 37 mmol/L (22-30); Chloride 93 mmol/L (98-107); Glucose 74 mg/dL (74-99); Potassium 3.2 mmol/L (3.5-5.1); Sodium 134 mmol/L (137-145)
[2017-11-22 11:40] LABS: Glucose,Whole Blood 127 mg/dL (75-99)
[2017-11-22] MEDS ORDERED: POTASSIUM CHLORIDE ORAL LIQUID 40 MEQ/30 ML CUP PEJ/J-Tube ONE (12:00)
[2017-11-22] MEDS: MULTIVITAMINS, THERA 1 EACH TAB PO SCH (12:23)
[2017-11-22] MEDS ORDERED: POTASSIUM CHLORIDE ER 20 MEQ TAB.ER PO ONE (12:30)
--- NOTE | 2017-11-22 14:24 | P.PN ---
Subjective Progress Note Date: 11/22/17 This is a 41-year-old male one of Kaiden Matute [place], [place] with a previous medical history significant for peptic ulcer disease was diagnosed initially back in 2009 for which he underwent partial gastrectomy with vagotomy f/by recurrent peptic ulcer disease underwent subtotal gastrectomy with gastrojejunostomy in 2010, and was admitted last year in sep 2017 with significant weight loss and inability to tolerate any diet with recurrent nausea and vomiting and cachexia secondaryt o stricture of the the gastric jejunostomy area and was supposed to get it fixed outpatient but was admitted with AMS and hypoxic respiratory failure secondary aspiration. Patient was intubated twice during his hospital stay and tracheostomy was placed by Dr. Espinal eventually on October 05 for failure to wean. Patient was just [facility] [place] 3 days ago. He was transitioned to [facility] collar few days after his discharge according to patient. He was doing great and had no difficulty swallowing his meal is currently taking oral pill through his mouth. According to mother bedside patient had fever, chills, phlegm production associated with some congestion and shortness of breath. He wears oxygen intermittently at the facility. Rapid flu was negative. Chest x- ray suggestive of a retrocardiac infiltrate with some air bronchograms in the left lower lobe and left mid lung. Abdomen done in the ER was positive for WBC 29.8, hemoglobin 9.9, creatinine 0.3, albumin 2. Patient is tachycardic, requiring 3 L of oxygen saturating at 96% with blood pressure 101/73. Patient initiated on broad-spectrum antibiotic for acute hypoxic respiratory failure secondary to pneumonia. Antibiotic coverage with cefepime and levofloxacin. Pulmonary consult placed. Speech evaluation to assess swallow. 11/19: Patient has been seen by speech therapy and he is able to eat a regular diet which will be placed. He has not had any nausea or vomiting. Dietitian is also adding in tube feedings. IV fluids will be changed to saline lock. Patient does have significant amount of sputum from his trach area and is being suctioned. Mucinex added. Noted to have J-tube leakage at the site of green liquid. Dr. Espinal will be consulted 11/20: Patient is having less drainage from his trach today and still requires suctioning. He continues to have drainage from the J-tube site and local wound care is Aquacel Ag. He is currently on IV antibiotics with cefepime and vancomycin. He is undergoing calorie count to determine if she tube can be discontinued. 11/21: Patient is complaining of his stomach feeling swollen and pain. He did not have a bowel movement today. Patient did not meet the calorie count requirements to have his J-tube removed. Surgery is looking at possibly replacing it due to drainage at the site. Sputum culture is reported as MSSA and vanco will be discontinued. Solu-Medrol will be discontinued. WBC is currently at 14.5 and hemoglobin 7.7, potassium will be replaced 11/22: There is no plan for surgery to replace J-tube at this time. Patient has minimal drainage from the site but concern is that once feedings resume, patient will have increased drainage again. Patient may need this removed as an outpatient. Patient is to start nighttime feedings. Dr. Mclaughlin recommended PICC placement and IV antibiotics with Rocephin for 2 weeks. Anticipate discharge back to [facility] tomorrow. Objective - Vital Signs Vital signs: Vital Signs Temp 97.5 F L 11/22/17 07:00 Pulse 76 11/22/17 08:30 Resp 16 11/22/17 07:00 BP 125/84 11/22/17 07:00 Pulse Ox 98 11/22/17 07:00 Intake & Output 11/21/17 11/22/17 11/22/17 18:59 06:59 18:59 Intake Total 0 Output Total 850 400 450 Balance -850 -400 -450 Weight 36 kg 35.5 kg Intake: Oral 0 Output: Urine 850 400 450 Other: Voiding Method Urinal Urinal # Voids 3 - Exam - Constitutional General appearance: cooperative, thin - EENT Eyes: EOMI, PERRLA, no photophobia, poor dentition, no scleral icterus Ears: bilateral: normal - Neck Neck: no lymphadenopathy, normal ROM, other (trach collar in place ) Carotids: bilateral: upstroke normal - Respiratory Respiratory: left: diminished, dullness, rhonchi, negative: wheezing - Cardiovascular Rhythm: regular (tachycardic) Heart sounds: normal: S1, S2 Abnormal Heart Sounds: no systolic murmur, no diastolic murmur ankle Peripheral Edema: bilateral: None - Gastrointestinal General gastrointestinal: no distended (J tub with greenish to blackish drainage around the J tube with open ulceration around thesite of J tube, no drainage seen ), normal bowel sounds, soft, no tenderness - Integumentary Integumentary: no calor, normal turgor, no pale, no rash, no ulcer - Neurologic Neurologic: CNII-XII intact - Musculoskeletal Musculoskeletal: generalized weakness, strength equal bilaterally - Psychiatric Psychiatric: A&O x's 3, appropriate affect - Labs CBC & Chem 7: 11/22/17 10:06 11/22/17 10:06 Labs: Abnormal Lab Results - Last 24 Hours (Table) 11/21/17 11/21/17 11/21/17 Range/Units 09:47 09:47 12:00 WBC 14.5 H (3.8-10.6) k/uL RBC 2.59 L (4.30-5.90) m/uL Hgb 7.7 L (13.0-17.5) gm/dL Hct 25.8 L (39.0-53.0) % MCHC 30.0 L (31.0-37.0) g/dL RDW 17.3 H (11.5-15.5) % Neutrophils # 12.9 H (1.3-7.7) k/uL Potassium 3.3 L (3.5-5.1) mmol/L Carbon Dioxide 32 H (22-30) mmol/L Creatinine 0.31 L (0.66-1.25) mg/dL POC Glucose (mg/dL) 116 H (75-99) mg/dL Calcium 7.6 L (8.4-10.2) mg/dL 11/21/17 11/21/17 Range/Units 17:12 20:27 WBC (3.8-10.6) k/uL RBC (4.30-5.90) m/uL Hgb (13.0-17.5) gm/dL Hct (39.0-53.0) % MCHC (31.0-37.0) g/dL RDW (11.5-15.5) % Neutrophils # (1.3-7.7) k/uL Potassium (3.5-5.1) mmol/L Carbon Dioxide (22-30) mmol/L Creatinine (0.66-1.25) mg/dL POC Glucose (mg/dL) 109 H 107 H (75-99) mg/dL Calcium (8.4-10.2) mg/dL Microbiology - Last 24 Hours (Table) 11/18/17 02:35 Blood Culture - Preliminary Blood No Growth after 96 hours 11/18/17 12:08 Gram Stain - Final Sputum Sputum Culture - Final Staphylococcus aureus Assessment and Plan Plan: 1. Sepsis and acute hypoxemic respiratory failure from left lower lobe MSSA pneumonia and COPD. Continue cefepime. Sputum culture as above. Continue Pulmicort and Perforomist with DuoNeb for shortness of breath. trach collar in place. Pulmonary recommendation pending regarding D cannulization of the trach. Rocephin for 2 weeks as an outpatient. PICC line ordered. 2. Severe protein calorie malnutrition with kwashiorkor thought to be due to significant stenosis of the gastrojejunostomy site. EGD performed by Dr. Espinal and underwent open jejunostomy tube on September 26. COntinue feeding via J tube. Dr. Espinal consult requested for leakage at the J-tube site. 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 4. Severe hypoalbuminemia secondary to poor oral intake of fluid and severe protein calorie malnutrition with kwashiorkor. Nutrition consult. Ensure with meals 5. History of migraine headache. Stable at this point in time. 6. Chronic pain syndrome. Continue long-acting morphine sulfate, with norco for break through pain, continue gabapentin 7. Bilateral lower extremity neuropathy. Continue gabapentin 300 3 times a day via G-tube 8. DVT prophylaxis. Continue heparin 5000 units subcutaneously every 12 hours. 9. GI prophylaxis. Continue patient on Protonix 40 mg IV push every 24 hours. 10. Patient is full code. 11. Body mass index is 10 12. Acute on chronic blood loss anemia, chronic secondary to severe malnourishment. FOBT on 09/17 was positive. Patient is on iron pills and has dark stool output from J tube. Hb stable. No ulceration was seen during the EGD. Follow-up with gastroenterology as outpatient 13. COPD CODE STATUS: Full code. Discharge plan: [facility] Impression and plan of care have been directed as dictated by the signing physician. Ankita Sandoval nurse practitioner acting as scribe for signing physician.
[2017-11-22] MEDS ORDERED: LIDOCAINE 2% INJ 20 MG/ML SQ ONE (14:51)
--- NOTE | 2017-11-22 15:35 | P.PN ---
Subjective Progress Note Date: 11/22/17 Principal diagnosis: COPD exacerbation complicated by left-sided pneumonia This is a 42-year-old male who apparently was in our ICU for a number of days and weeks. The patient underwent tracheostomy for respiratory failure and failure to wean. He apparently was transferred to one of the specialized nursing facilities or long-term acute care units. Apparently the patient was weaned there. He apparently was eventually weaned to trach collar and then to nasal prongs. Tracheostomy tube is still in place. The patient was sent then to rehabilitation at [facility]. He's been there for some time. He comes here with complaints of increasing shortness of breath chest congestion and fever chills and phlegm production. The patient just doesn't feel like he is was doing as well as he had been doing. He apparently was evaluated in the emergency room and thought to have pneumonia. Chest x-ray shows retrocardiac infiltrate with some air bronchograms in the left lower lobe and some left midlung infiltrates as well. I'm seeing the patient for COPD exacerbation and left-sided pneumonia. The patient is alert and well. The patient has a tracheostomy tube in place. The patient is receiving nasal oxygen. He does feel better today than yesterday. On 11/19/2017 patient seen in follow-up. Resting comfortably in bed, in no acute distress. Staff suctioning large amount of sputum, solares espinal in color. Patient does have productive cough. Lung sounds are positive for scattered rhonchi bilaterally. Remains afebrile, vital signs are stable, currently on 2 L per nasal cannula set 100%. Labs have been reviewed, WBC is on a downward trend, down to 12.2, hemoglobin is 8.5, sodium is 138, potassium 3.9, CO2 is 31 , B1 17, creatinine 0.26. Influenza screen was negative. Patient is awake, alert, oriented 3. Tracheostomy is in place with a speaking valve. Patient is tolerating oral intake, fair appetite. His on combination of cefepime, Levaquin, Zosyn. Blood and sputum cultures are pending. On 11/20/2017 patient seen in follow-up. Denies any worsening dyspnea, denies at 2 L per nasal cannula, O2 sat at 100%. Afebrile, vitals are stable. Sputum culture shows presumptive staph aureus, blood culture showed no growth at 48 hour prince. Patient continues on cefepime, vancomycin was added by the ID service. Staff is still suctioning moderate amount of espinal colored endotracheal secretions. Patient is tolerating oral intake, states she is trying to increase his oral intake. Calorie count is in progress. Patient was seen by general surgery in regards to the draining jejunostomy tube. Gen. surgery has no plans to replace the tube. If patient can sustain adequate calorie intake, surgery prefers to discontinue it altogether. Chest x-ray from 11/19/2017 has been reviewed and shows left lower lobe pneumonia and associated effusion. Lung sounds sound somewhat improved, although still positive for scattered rhonchi and congested cough. On 11/21/2017 patient seen in follow-up on medical surgical floor. Currently sitting up in the chair, in no acute distress. He on 2 L per nasal cannula with O2 sat at 98%, afebrile, vital signs are stable. He is eating between 75% of his meals, his tube feedings are currently on hold. The J-tube insertion site looks dry today, with decreased drainage from around the insertion site, less irritated and excoriated. Patient would like to keep it for another week, see if he can sustain his oral intake to maintain his caloric requirements. His sputum culture shows MSSA. Currently on Rocephin, cefepime was discontinued , vancomycin was discontinued as well. ID service is following. Lung sounds continue to improve, with better aeration, still positive for some scattered rhonchi, staff still suctions espinal colored secretions from endotracheal stoma. On 11/22/2017 patient seen again in medical surgical floor. Denies any worsening dyspnea, he is awake and alert, resting in bed, his mood is depressed. He continues to require endotracheal suctioning, sputum was espinal- brownish color. Vitals remains stable, he is afebrile scattered rhonchi, more so on the left. Sputum culture was positive for MSSA, patient is currently on Rocephin. Surgery is planning on keeping the J-tube in for now, no drainage noted from around the insertion site. Aquacel with silver dressings applied to the J-tube insertion site. He is consuming between 75-90% of his meals, still there is a possibility of supplemental tube feedings at night. Patient will receive PICC line placement for IV antibiots infusion today. Discharge planning is in progress for discharge back to rehab facility. Chest x-ray from 11/21/2017 has been reviewed and shows left lower lobe consolidation with air bronchograms with little if any interval change. Objective - Vital Signs Vital signs: Vital Signs Temp 97.5 F L 11/22/17 07:00 Pulse 76 11/22/17 11:57 Resp 16 11/22/17 07:00 BP 125/84 11/22/17 07:00 Pulse Ox 98 11/22/17 07:00 Intake & Output 11/21/17 11/22/17 11/22/17 18:59 06:59 18:59 Intake Total 0 Output Total 850 400 450 Balance -850 -400 -450 Weight 36 kg 35.5 kg 35.5 kg Intake: Oral 0 Output: Urine 850 400 450 Other: Voiding Method Urinal Urinal # Voids 3 - Exam No acute distress, oriented 3. HEENT examination is grossly unremarkable. Mucous membranes are moist. No oral lesions. Neck supple. Full range of motion. No adenopathy thyromegaly or neck vein distention. The patient has a midline tracheostomy tube which is fitted with a speaking valve. Cardiovascular examination reveals regular rhythm rate. S1-S2 normal. No S3 or S4. No discernible murmur noted. Lungs reveal diffuse rhonchi. Breath sounds are severely diminished. No wheezes. Breath sounds are equal bilaterally.. Abdomen soft bowel sounds are heard. No masses or tenderness. Right upper quadrant jejunostomy tube is in place, no drainage was noted from around the insertion site today, the area around the insertion site is still red, but less excoriated and irritated. Extremities are intact. No cyanosis clubbing or edema. Skin is without rash or lesion. Neurologic examination is brief but nonfocal. - Labs CBC & Chem 7: 11/22/17 10:06 11/22/17 10:06 Labs: Abnormal Lab Results - Last 24 Hours (Table) 11/21/17 11/21/17 11/22/17 Range/Units 17:12 20:27 10:06 WBC (3.8-10.6) k/uL RBC (4.30-5.90) m/uL Hgb (13.0-17.5) gm/dL Hct (39.0-53.0) % MCHC (31.0-37.0) g/dL RDW (11.5-15.5) % Neutrophils # (1.3-7.7) k/uL Sodium 134 L (137-145) mmol/L Potassium 3.2 L (3.5-5.1) mmol/L Chloride 93 L (98-107) mmol/L Carbon Dioxide 37 H (22-30) mmol/L BUN 5 L (9-20) mg/dL Creatinine 0.30 L (0.66-1.25) mg/dL POC Glucose (mg/dL) 109 H 107 H (75-99) mg/dL Calcium 7.3 L (8.4-10.2) mg/dL 11/22/17 11/22/17 Range/Units 10:06 11:37 WBC 11.6 H (3.8-10.6) k/uL RBC 3.02 L (4.30-5.90) m/uL Hgb 8.5 L (13.0-17.5) gm/dL Hct 29.3 L (39.0-53.0) % MCHC 28.9 L (31.0-37.0) g/dL RDW 15.9 H (11.5-15.5) % Neutrophils # 9.8 H (1.3-7.7) k/uL Sodium (137-145) mmol/L Potassium (3.5-5.1) mmol/L Chloride (98-107) mmol/L Carbon Dioxide (22-30) mmol/L BUN (9-20) mg/dL Creatinine (0.66-1.25) mg/dL POC Glucose (mg/dL) 127 H (75-99) mg/dL Calcium (8.4-10.2) mg/dL Microbiology - Last 24 Hours (Table) 11/18/17 02:35 Blood Culture - Preliminary Blood No Growth after 96 hours Assessment and Plan Plan: Assessment: 1 COPD exacerbation complicated by left-sided pneumonia, sputum cultures positive for MSSA, patient is currently Rocephin, vancomycin was discontinued per ID service. 2 Status post chronic respiratory failure, with long-term mechanical ventilation and eventual tracheostomy 3 Severe protein calorie malnutrition with kwashiorkor, patient was being supplemented by tube feedings through the jejunostomy . Currently trying to increase his oral intake to meet caloric requirements. Jejunostomy tube is having significant leakage from around the insertion site. Surgery is following , plan is to keep NG tube in for now for possibility of supplemental tube feeds 3 Osteoporosis 4 Gastroesophageal reflux disease 5 GI bleed 6 Scoliosis 7 Peptic ulcer disease 8 Status post cholecystectomy 9 Previous heavy tobacco use or graft 10 chronic anemia, secondary to severe malnutrition, on iron supplementations Plan: Chest x-ray from 11/21/2017 was reviewed, shows stable appearance of the left lower lobe consolidation, with air bronchograms with no significant interval change. Lab work has been reviewed, his white count continues to improve down to 11.6, hemoglobin is 8.6. Continue current medical treatment, continue IV Rocephin per ID recommendation. Continue nebulized treatments. Increase activity as tolerated, continue with calorie count, Patient remains afebrile, in no respiratory distress, continues to require periodic endotracheal suctioning. I performed a history & physical examination of the patient and discussed their management with my nurse practitioner, Esthela Garcia. I reviewed the nurse practitioner's note and agree with the documented findings and plan of care. Lung sounds are positive for scattered rhonchi throughout the lung allison. The findings and the impression was discussed with the patient. I attest to the documentation by the nurse practitioner. Time with Patient: Less than 30
[2017-11-22 17:19] LABS: Glucose,Whole Blood 121 mg/dL (75-99)
[2017-11-22 20:45] LABS: Glucose,Whole Blood 197 mg/dL (75-99)
[2017-11-22] MEDS: CITALOPRAM HYDROBROMIDE 20 MG TAB PO SCH (22:48)
[2017-11-23] MEDS: MORPHINE ORAL SOLN 10 MG/5 ML CUP PO SCH ×3 (02:38→19:37)
[2017-11-23] MEDS: ALPRAZolam 0.5 MG TAB PO PRN ×3 (02:39→19:36)
[2017-11-23] MEDS: GABAPENTIN 300 MG CAP PO SCH ×4 (06:45→23:26)
[2017-11-23 07:25] LABS: Glucose,Whole Blood 101 mg/dL (75-99)
[2017-11-23] MEDS: ONDANSETRON 4 MG/2 ML VIAL IVP PRN ×3 (07:57→18:54)
[2017-11-23] MEDS: cefTRIAXone IN SWFI 2,000 MG/20 ML SYRINGE IVP SCH (08:01)
[2017-11-23] MEDS: PANTOPRAZOLE 40 MG TABLET PO SCH ×2 (08:01→20:51)
[2017-11-23] MEDS: HEPARIN SODIUM,PORCINE 5,000 UNIT/ML 1 ML VIAL SQ SCH ×2 (08:01→20:38)
[2017-11-23] MEDS: FORMOTEROL FUMARATE 20 MCG/2 ML NEBU INHALATION SCH ×2 (08:03→19:53)
[2017-11-23] MEDS: BUDESONIDE 1 MG/2 ML NEBU INHALATION SCH ×2 (08:03→19:53)
[2017-11-23] MEDS: IPRATROPIUM-ALBUTEROL 3 ML NEB INHALATION SCH ×4 (08:03→19:30)
[2017-11-23] MEDS: HYDROcodone/APAP 10-325MG 1 EACH TAB PO PRN ×2 (08:10→22:14)
--- NOTE | 2017-11-23 08:19 | IR ---
EXAMINATION TYPE: IR cvc insert >=5 years DATE OF EXAM: 11/22/2017 COMPARISON: NONE CLINICAL HISTORY: Infection Needs long-term intravenous access for antibiotics. PROCEDURE: After informed consent, the skin overlying the upper extremity vein was localized with ultrasound and noted to be compressible and patent. An ultrasound image was obtained and submitted on the patient' s chart. The overlying skin was prepped and draped and Lidocaine was used for local anesthesia. A s kin tremaine was made with a scalpel. Access was gained to the vein under ultrasound guidance with a 21 gauge needle and a 0.018 inch wire was advanced. Access site was dilated with Peel-Away sheath and c atheter tailored to the appropriate length and advanced such that the distal tip is at the cavoatrial junction. Spot image was obtained verifying placement. Catheter was fixed to the skin with suture and a sterile dressing was placed following hemostasis. Catheter was aspirated and flushed with sali ne. Patient was discharged in stable condition without complication. Maximal barrier technique is ut ilized. Ultrasound image is documented on the chart. Ultrasound used with sterile technique. Fluoro time and fluoroscopic images submitted to document procedure: 38 intraoperative images, 0.4 mi nutes fluoroscopy time IMPRESSION: STATUS POST ULTRASOUND AND FLUOROSCOPIC GUIDED PICC LINE PLACEMENT, READY FOR USE. THIS PROCEDURE WAS PERFORMED BY THE UNDERSIGNED.
--- NOTE | 2017-11-23 08:28 | PN ---
PROGRESS NOTE DATE OF SERVICE: 11/22/2017 REASON FOR FOLLOWUP: MSSA pneumonia. INTERVAL HISTORY: The patient is afebrile, has been breathing more comfortably. Denies having any chest pain, minimal cough. No nausea, vomiting. No abdominal pain, no diarrhea. PHYSICAL EXAMINATION: His blood pressure is 125/84 with a pulse of 62, temperature 97.5. He is 98% on 3 L nasal cannula. General description is a middle-aged male, lying in bed in no distress. RESPIRATORY SYSTEM: Unlabored breathing with decreased breath sounds in the bases, no wheeze. HEART: S1, S2. Regular rate and rhythm. ABDOMEN: Soft, no tenderness. LABS: White count down to 11.6, BUN of 5, creatinine 0.30. Repeat x-ray still showing a left lower lobe pneumonia with no significant change. DIAGNOSTIC IMPRESSION AND PLAN: Patient with left lower lobe pneumonia with sputum showing an methicillin-sensitive Staphylococcus aureus. In view of the extensive pneumonia, recommend getting a PICC line for at least 2 weeks of IV Rocephin 2 g daily with repeat x-ray at that time to document clearance of his pneumonia. Plan of care discussed with the Admitting Team. MMODL / IJN: [id number] /
[2017-11-23 08:31] LABS: Anisocytosis Slight; Basophils % (A) 0 %; Eosinophils # (A) 0.1 k/uL (0-0.7); Eosinophils % (A) 0 %; HCT 30.9 % (39.0-53.0); HGB 9.4 gm/dL (13.0-17.5); Hypochromasia Moderate; Lymphocytes % (A) 3 %; MCHC 30.3 g/dL (31.0-37.0); MCV 95.6 fL (80.0-100.0); Mean Platelet Volume 7.3; Monocytes # (A) 0.7 k/uL (0-1.0); Monocytes % (A) 2 %; Neutrophils % (A) 94 %; Platelet Count 444 k/uL (150-450); RBC 3.23 m/uL (4.30-5.90); RDW 16.3 % (11.5-15.5)
[2017-11-23 08:36] LABS: Anion Gap 6 mmol/L; Blood Urea Nitrogen 9 mg/dL (9-20); Calcium 7.6 mg/dL (8.4-10.2); Carbon Dioxide 32 mmol/L (22-30); Chloride 97 mmol/L (98-107); Glucose 79 mg/dL (74-99); Sodium 135 mmol/L (137-145)
[2017-11-23 08:43] LABS: WBC 31.9 k/uL (3.8-10.6)
[2017-11-23 09:26] LABS: Anisocytosis Slight; HCT 32.6 % (39.0-53.0); HGB 9.7 gm/dL (13.0-17.5); Hypochromasia Marked; MCH 28.7 pg (25.0-35.0); MCHC 29.7 g/dL (31.0-37.0); MCV 96.7 fL (80.0-100.0); Macrocytosis Slight; Platelet Count 473 k/uL (150-450); RBC 3.37 m/uL (4.30-5.90); RDW 17.9 % (11.5-15.5)
[2017-11-23 10:23] LABS: Hypersegmented Neutrophils Present; Poikilocytosis (M) Present; Target Cells Present
[2017-11-23 10:23] LABS: Band Neutrophils % 1 %; Eosinophils # (M) 0.35 k/uL (0-0.7); Monocytes # (M) 0.35 k/uL (0-1.0); Neutrophils % (M) 97 %; Nucleated Red Blood Cells 0 /100 WBC (0-0); Total Cells Counted 200
[2017-11-23 10:24] LABS: Hypersegmented Neutrophils Present
--- NOTE | 2017-11-23 10:57 | P.PN ---
Subjective Progress Note Date: 11/23/17 42-year-old male seen and examined sitting up in bed currently taking a diet. J -tube clamped dressing around the J-tube site scant amount of greenish drainage dry less skin excoriation around the J-tube site to pizza been on hold. Currently able to take at least 75% of caloric intake through a diet. Did note the white count is elevated this morning to 31.9 infectious disease participating in the plan of care patient continues to verbalize wanting the J-tube left in place for the next couple weeks if able to tolerate a diet is willing to have the J-tube removed at that time Objective - Vital Signs Vital signs: Vital Signs Temp 98.9 F 11/23/17 06:18 Pulse 84 11/23/17 08:30 Resp 18 11/23/17 06:18 BP 101/66 11/23/17 06:18 Pulse Ox 93 L 11/23/17 08:05 Intake & Output 11/22/17 11/23/17 11/23/17 18:59 06:59 18:59 Output Total 2825 600 200 Balance -2825 -600 -200 Weight 35.5 kg 35 kg Output: Urine 2825 600 200 Other: Voiding Method Urinal # Voids 9 4 - Exam Focused exam Sitting up in bed taking a diet tolerating it no nausea no vomiting caloric intake 75% nutritional needs being met for diet calorie diary Abdomen flat nondistended J tube in place clamped no leakage around the J-tube dressing is dry around the J-tube erythema improving less tender Current dressing around the disc the RASHEED drain is dry with old greenish drainage noted patient continues to verbalize wanting to J-tube left in place for the next couple weeks until he feels comfortable that he is meeting his caloric intake then is willing to have it removed - Labs CBC & Chem 7: 11/23/17 09:07 11/23/17 07:58 Labs: Abnormal Lab Results - Last 24 Hours (Table) 11/22/17 11/22/17 11/22/17 Range/Units 10:06 10:06 11:37 WBC 11.6 H (3.8-10.6) k/uL RBC 3.02 L (4.30-5.90) m/uL Hgb 8.5 L (13.0-17.5) gm/dL Hct 29.3 L (39.0-53.0) % MCHC 28.9 L (31.0-37.0) g/dL RDW 15.9 H (11.5-15.5) % Plt Count (150-450) k/uL Neutrophils # 9.8 H (1.3-7.7) k/uL Neutrophils # (Manual) (1.3-7.7) k/uL Lymphocytes # (Manual) (1.0-4.8) k/uL Sodium 134 L (137-145) mmol/L Potassium 3.2 L (3.5-5.1) mmol/L Chloride 93 L (98-107) mmol/L Carbon Dioxide 37 H (22-30) mmol/L BUN 5 L (9-20) mg/dL Creatinine 0.30 L (0.66-1.25) mg/dL POC Glucose (mg/dL) 127 H (75-99) mg/dL Calcium 7.3 L (8.4-10.2) mg/dL 11/22/17 11/22/17 11/23/17 Range/Units 17:17 20:43 07:15 WBC (3.8-10.6) k/uL RBC (4.30-5.90) m/uL Hgb (13.0-17.5) gm/dL Hct (39.0-53.0) % MCHC (31.0-37.0) g/dL RDW (11.5-15.5) % Plt Count (150-450) k/uL Neutrophils # (1.3-7.7) k/uL Neutrophils # (Manual) (1.3-7.7) k/uL Lymphocytes # (Manual) (1.0-4.8) k/uL Sodium (137-145) mmol/L Potassium (3.5-5.1) mmol/L Chloride (98-107) mmol/L Carbon Dioxide (22-30) mmol/L BUN (9-20) mg/dL Creatinine (0.66-1.25) mg/dL POC Glucose (mg/dL) 121 H 197 H 101 H (75-99) mg/dL Calcium (8.4-10.2) mg/dL 11/23/17 11/23/17 11/23/17 Range/Units 07:58 07:58 09:07 WBC 31.9 H* 35.0 H* (3.8-10.6) k/uL RBC 3.23 L 3.37 L (4.30-5.90) m/uL Hgb 9.4 L 9.7 L (13.0-17.5) gm/dL Hct 30.9 L 32.6 L (39.0-53.0) % MCHC 30.3 L 29.7 L (31.0-37.0) g/dL RDW 16.3 H 17.9 H (11.5-15.5) % Plt Count 473 H (150-450) k/uL Neutrophils # 30.0 H (1.3-7.7) k/uL Neutrophils # (Manual) 34.30 H (1.3-7.7) k/uL Lymphocytes # (Manual) 0.70 L (1.0-4.8) k/uL Sodium 135 L (137-145) mmol/L Potassium (3.5-5.1) mmol/L Chloride 97 L (98-107) mmol/L Carbon Dioxide 32 H (22-30) mmol/L BUN (9-20) mg/dL Creatinine 0.29 L (0.66-1.25) mg/dL POC Glucose (mg/dL) (75-99) mg/dL Calcium 7.6 L (8.4-10.2) mg/dL Microbiology - Last 24 Hours (Table) 11/18/17 02:35 Blood Culture - Preliminary Blood No Growth after 120 hours Assessment and Plan Assessment: Impression Previous medical history significant for peptic ulcer disease partial gastrectomy 2 Present on admission Skin excoriation around the J-tube site due to leaking green drainage around the site Severe protein calorie malnutrition with kwashior 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 J-tube placed September 26 2017 for nutritional support (Present on admission sepsis likely due to acute hypoxic respiratory failure from left lower lobe pneumonia Esophageal reflux disease History of Peptic ulcer disease Status post EGD September 24 findings malnutrition secondary to gastrojejunostomy scarring would benefit from an open jejunostomy tube Present on admission stage I decubitus on the coccyx area Leukocytosis unclear etiology Plan Await further recommendations per infectious disease Will discuss with the surgeon about the plan for the J-tube if it's to be replaced this admission and resume tube feeds patient is requesting the J-tube be left in and possibly remove it in 3-4 weeks in the outpatient setting if able to meet caloric needs. Aspiration precautions Dietitian for calorie count Wound care to the skin excoriation around the J-tube site as ordered Continue with regular diet DVT and GI prophylaxis Defer to pulmonary for pulmonary management Defer to the attending to address medical issues defer to Will follow with you Progress note dictated for Dr. piedra The above impression and plan of care have been discussed and directed by signing physician. Christine Stokes nurse practitioner acting as scribe for signing physician.
[2017-11-23] MEDS: PIPERACILLIN-TAZOBACTAM 3.375 GM in DEXTROSE/WATER 1 50ML.BAG IVPB SCH ×2 (11:51→20:37)
[2017-11-23 12:09] LABS: Glucose,Whole Blood 172 mg/dL (75-99)
[2017-11-23] MEDS ORDERED: IOHEXOL 350 MG/ML 25 ML BOTTLE (ORAL USE) PO PRN (12:49)
[2017-11-23] MEDS ORDERED: RX INFO: IV CONTRAST WAS GIVEN 1 EACH MISC MISCELLANE PRN (12:49)
[2017-11-23] MEDS: MULTIVITAMINS, THERA 1 EACH TAB PO SCH (13:26)
[2017-11-23] MEDS: SODIUM CHLORIDE 0.9% 1,000 ML IV SCH ×2 (14:05→22:15)
--- NOTE | 2017-11-23 14:40 | P.PN ---
Subjective Progress Note Date: 11/23/17 This is a 41-year-old male one of Kaiden Matute [place], [place] with a previous medical history significant for peptic ulcer disease was diagnosed initially back in 2009 for which he underwent partial gastrectomy with vagotomy f/by recurrent peptic ulcer disease underwent subtotal gastrectomy with gastrojejunostomy in 2010, and was admitted last year in sep 2017 with significant weight loss and inability to tolerate any diet with recurrent nausea and vomiting and cachexia secondaryt o stricture of the the gastric jejunostomy area and was supposed to get it fixed outpatient but was admitted with AMS and hypoxic respiratory failure secondary aspiration. Patient was intubated twice during his hospital stay and tracheostomy was placed by Dr. Espinal eventually on October 05 for failure to wean. Patient was just transferred to [facility] [place] 3 days ago. He was transitioned to [facility] collar few days after his discharge according to patient. He was doing great and had no difficulty swallowing his meal is currently taking oral pill through his mouth. According to mother bedside patient had fever, chills, phlegm production associated with some congestion and shortness of breath. He wears oxygen intermittently at the facility. Rapid flu was negative. Chest x- ray suggestive of a retrocardiac infiltrate with some air bronchograms in the left lower lobe and left mid lung. Abdomen done in the ER was positive for WBC 29.8, hemoglobin 9.9, creatinine 0.3, albumin 2. Patient is tachycardic, requiring 3 L of oxygen saturating at 96% with blood pressure 101/73. Patient initiated on broad-spectrum antibiotic for acute hypoxic respiratory failure secondary to pneumonia. Antibiotic coverage with cefepime and levofloxacin. Pulmonary consult placed. Speech evaluation to assess swallow. 11/19: Patient has been seen by speech therapy and he is able to eat a regular diet which will be placed. He has not had any nausea or vomiting. Dietitian is also adding in tube feedings. IV fluids will be changed to saline lock. Patient does have significant amount of sputum from his trach area and is being suctioned. Mucinex added. Noted to have J-tube leakage at the site of green liquid. Dr. Espinal will be consulted 11/20: Patient is having less drainage from his trach today and still requires suctioning. He continues to have drainage from the J-tube site and local wound care is Aquacel Ag. He is currently on IV antibiotics with cefepime and vancomycin. He is undergoing calorie count to determine if she tube can be discontinued. 11/21: Patient is complaining of his stomach feeling swollen and pain. He did not have a bowel movement today. Patient did not meet the calorie count requirements to have his J-tube removed. Surgery is looking at possibly replacing it due to drainage at the site. Sputum culture is reported as MSSA and vanco will be discontinued. Solu-Medrol will be discontinued. WBC is currently at 14.5 and hemoglobin 7.7, potassium will be replaced 11/22: There is no plan for surgery to replace J-tube at this time. Patient has minimal drainage from the site but concern is that once feedings resume, patient will have increased drainage again. Patient may need this removed as an outpatient. Patient is to start nighttime feedings. Dr. Mclaughlin recommended PICC placement and IV antibiotics with Rocephin for 2 weeks. Anticipate discharge back to [facility] tomorrow. 11/23:patient had a jump in his white count to 35. Dr. Mclaughlin has changed his antibiotics to Zosyn. Patient is having some left lower quadrant pain for which CAT scan of the abdomen and pelvis has been ordered. Discharge to [facility] will be held today.Dr. Coulter has added CT of the chest as well. Objective - Vital Signs Vital signs: Vital Signs Temp 98.9 F 11/23/17 06:18 Pulse 84 11/23/17 08:30 Resp 18 11/23/17 06:18 BP 101/66 11/23/17 06:18 Pulse Ox 93 L 11/23/17 08:05 Intake & Output 11/22/17 11/23/17 11/23/17 18:59 06:59 18:59 Output Total 2825 600 200 Balance -2825 -600 -200 Weight 35.5 kg 35 kg Output: Urine 2825 600 200 Other: Voiding Method Urinal # Voids 9 4 - Exam - Constitutional General appearance: cooperative, thin - EENT Eyes: EOMI, PERRLA, no photophobia, poor dentition, no scleral icterus Ears: bilateral: normal - Neck Neck: no lymphadenopathy, normal ROM, other (trach collar in place ) Carotids: bilateral: upstroke normal - Respiratory Respiratory: left: diminished, dullness, rhonchi, negative: wheezing - Cardiovascular Rhythm: regular (tachycardic) Heart sounds: normal: S1, S2 Abnormal Heart Sounds: no systolic murmur, no diastolic murmur ankle Peripheral Edema: bilateral: None - Gastrointestinal General gastrointestinal: no distended (J tub with greenish to blackish drainage around the J tube with open ulceration around thesite of J tube, no drainage seen ), normal bowel sounds, soft, LLQ tenderness - Integumentary Integumentary: no calor, normal turgor, no pale, no rash, no ulcer - Neurologic Neurologic: CNII-XII intact - Musculoskeletal Musculoskeletal: generalized weakness, strength equal bilaterally - Psychiatric Psychiatric: A&O x's 3, appropriate affect - Labs CBC & Chem 7: 11/23/17 09:07 11/23/17 07:58 Labs: Abnormal Lab Results - Last 24 Hours (Table) 11/22/17 11/22/17 11/22/17 Range/Units 11:37 17:17 20:43 WBC (3.8-10.6) k/uL RBC (4.30-5.90) m/uL Hgb (13.0-17.5) gm/dL Hct (39.0-53.0) % MCHC (31.0-37.0) g/dL RDW (11.5-15.5) % Plt Count (150-450) k/uL Neutrophils # (1.3-7.7) k/uL Neutrophils # (Manual) (1.3-7.7) k/uL Lymphocytes # (Manual) (1.0-4.8) k/uL Sodium (137-145) mmol/L Chloride (98-107) mmol/L Carbon Dioxide (22-30) mmol/L Creatinine (0.66-1.25) mg/dL POC Glucose (mg/dL) 127 H 121 H 197 H (75-99) mg/dL Calcium (8.4-10.2) mg/dL 11/23/17 11/23/17 11/23/17 Range/Units 07:15 07:58 07:58 WBC 31.9 H* (3.8-10.6) k/uL RBC 3.23 L (4.30-5.90) m/uL Hgb 9.4 L (13.0-17.5) gm/dL Hct 30.9 L (39.0-53.0) % MCHC 30.3 L (31.0-37.0) g/dL RDW 16.3 H (11.5-15.5) % Plt Count (150-450) k/uL Neutrophils # 30.0 H (1.3-7.7) k/uL Neutrophils # (Manual) (1.3-7.7) k/uL Lymphocytes # (Manual) (1.0-4.8) k/uL Sodium 135 L (137-145) mmol/L Chloride 97 L (98-107) mmol/L Carbon Dioxide 32 H (22-30) mmol/L Creatinine 0.29 L (0.66-1.25) mg/dL POC Glucose (mg/dL) 101 H (75-99) mg/dL Calcium 7.6 L (8.4-10.2) mg/dL 11/23/17 Range/Units 09:07 WBC 35.0 H* (3.8-10.6) k/uL RBC 3.37 L (4.30-5.90) m/uL Hgb 9.7 L (13.0-17.5) gm/dL Hct 32.6 L (39.0-53.0) % MCHC 29.7 L (31.0-37.0) g/dL RDW 17.9 H (11.5-15.5) % Plt Count 473 H (150-450) k/uL Neutrophils # (1.3-7.7) k/uL Neutrophils # (Manual) 34.30 H (1.3-7.7) k/uL Lymphocytes # (Manual) 0.70 L (1.0-4.8) k/uL Sodium (137-145) mmol/L Chloride (98-107) mmol/L Carbon Dioxide (22-30) mmol/L Creatinine (0.66-1.25) mg/dL POC Glucose (mg/dL) (75-99) mg/dL Calcium (8.4-10.2) mg/dL Microbiology - Last 24 Hours (Table) 11/18/17 02:35 Blood Culture - Preliminary Blood No Growth after 120 hours Assessment and Plan Plan: 1. Sepsis and acute hypoxemic respiratory failure from left lower lobe MSSA pneumonia and COPD. Continue Zosyn. Sputum culture as above. Continue Pulmicort and Perforomist with DuoNeb for shortness of breath. trach collar in place. Pulmonary recommendation pending regarding D cannulization of the trach. PICC line placed. CAT scan of the chest, abdomen and pelvis ordered. 2. Severe protein calorie malnutrition with kwashiorkor thought to be due to significant stenosis of the gastrojejunostomy site. EGD performed by Dr. Espinal and underwent open jejunostomy tube on September 26. COntinue feeding via J tube. Dr. Espinal consult requested for leakage at the J-tube site. 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 4. Severe hypoalbuminemia secondary to poor oral intake of fluid and severe protein calorie malnutrition with kwashiorkor. Nutrition consult. Ensure with meals 5. History of migraine headache. Stable at this point in time. 6. Chronic pain syndrome. Continue long-acting morphine sulfate, with norco for break through pain, continue gabapentin 7. Bilateral lower extremity neuropathy. Continue gabapentin 300 3 times a day via G-tube 8. DVT prophylaxis. Continue heparin 5000 units subcutaneously every 12 hours. 9. GI prophylaxis. Continue patient on Protonix 40 mg IV push every 24 hours. 10. Patient is full code. 11. Body mass index is 10 12. Acute on chronic blood loss anemia, chronic secondary to severe malnourishment. FOBT on 09/17 was positive. Patient is on iron pills and has dark stool output from J tube. Hb stable. No ulceration was seen during the EGD. Follow-up with gastroenterology as outpatient 13. COPD CODE STATUS: Full code. Discharge plan: [facility] Impression and plan of care have been directed as dictated by the signing physician. Ankita Sandoval nurse practitioner acting as scribe for signing physician.
[2017-11-23 15:19] LABS: Amorphous Sediment,Urine Rare /hpf; Appearance,Urine Cloudy (Clear); Bilirubin,Urine Negative (Negative); Blood,Urine Small (Negative); Color,Urine Yellow; Glucose,Urine (UA) Negative (Negative); Hyaline Casts,Urine 14 /lpf (0-2); Ketones,Urine Negative (Negative); Leukocyte Esterase,Urine Negative (Negative); Mucus,Urine Few /hpf; Nitrite,Urine Negative (Negative); PH, Urine 7.5 (5.0-8.0); Protein,Urine 1+ (Negative); RBC,Urine 10 /hpf (0-5); Specific Gravity,Urine 1.022 (1.001-1.035); Squamous Epithelial Cell,Urine <1 /hpf (0-4); Urobilinogen,Urine <2.0 mg/dL (<2.0); WBC,Urine 3 /hpf (0-5)
--- NOTE | 2017-11-23 15:21 | P.PN ---
Subjective Progress Note Date: 11/23/17 Principal diagnosis: COPD exacerbation complicated by left-sided pneumonia This is a 42-year-old male who apparently was in our ICU for a number of days and weeks. The patient underwent tracheostomy for respiratory failure and failure to wean. He apparently was transferred to one of the specialized nursing facilities or long-term acute care units. Apparently the patient was weaned there. He apparently was eventually weaned to trach collar and then to nasal prongs. Tracheostomy tube is still in place. The patient was sent then to rehabilitation at [facility]. He's been there for some time. He comes here with complaints of increasing shortness of breath chest congestion and fever chills and phlegm production. The patient just doesn't feel like he is was doing as well as he had been doing. He apparently was evaluated in the emergency room and thought to have pneumonia. Chest x-ray shows retrocardiac infiltrate with some air bronchograms in the left lower lobe and some left midlung infiltrates as well. I'm seeing the patient for COPD exacerbation and left-sided pneumonia. The patient is alert and well. The patient has a tracheostomy tube in place. The patient is receiving nasal oxygen. He does feel better today than yesterday. On 11/19/2017 patient seen in follow-up. Resting comfortably in bed, in no acute distress. Staff suctioning large amount of sputum, solares espinal in color. Patient does have productive cough. Lung sounds are positive for scattered rhonchi bilaterally. Remains afebrile, vital signs are stable, currently on 2 L per nasal cannula set 100%. Labs have been reviewed, WBC is on a downward trend, down to 12.2, hemoglobin is 8.5, sodium is 138, potassium 3.9, CO2 is 31 , B1 17, creatinine 0.26. Influenza screen was negative. Patient is awake, alert, oriented 3. Tracheostomy is in place with a speaking valve. Patient is tolerating oral intake, fair appetite. His on combination of cefepime, Levaquin, Zosyn. Blood and sputum cultures are pending. On 11/20/2017 patient seen in follow-up. Denies any worsening dyspnea, denies at 2 L per nasal cannula, O2 sat at 100%. Afebrile, vitals are stable. Sputum culture shows presumptive staph aureus, blood culture showed no growth at 48 hour prince. Patient continues on cefepime, vancomycin was added by the ID service. Staff is still suctioning moderate amount of espinal colored endotracheal secretions. Patient is tolerating oral intake, states she is trying to increase his oral intake. Calorie count is in progress. Patient was seen by general surgery in regards to the draining jejunostomy tube. Gen. surgery has no plans to replace the tube. If patient can sustain adequate calorie intake, surgery prefers to discontinue it altogether. Chest x-ray from 11/19/2017 has been reviewed and shows left lower lobe pneumonia and associated effusion. Lung sounds sound somewhat improved, although still positive for scattered rhonchi and congested cough. On 11/21/2017 patient seen in follow-up on medical surgical floor. Currently sitting up in the chair, in no acute distress. He on 2 L per nasal cannula with O2 sat at 98%, afebrile, vital signs are stable. He is eating between 75% of his meals, his tube feedings are currently on hold. The J-tube insertion site looks dry today, with decreased drainage from around the insertion site, less irritated and excoriated. Patient would like to keep it for another week, see if he can sustain his oral intake to maintain his caloric requirements. His sputum culture shows MSSA. Currently on Rocephin, cefepime was discontinued , vancomycin was discontinued as well. ID service is following. Lung sounds continue to improve, with better aeration, still positive for some scattered rhonchi, staff still suctions espinal colored secretions from endotracheal stoma. On 11/22/2017 patient seen again in medical surgical floor. Denies any worsening dyspnea, he is awake and alert, resting in bed, his mood is depressed. He continues to require endotracheal suctioning, sputum was espinal- brownish color. Vitals remains stable, he is afebrile scattered rhonchi, more so on the left. Sputum culture was positive for MSSA, patient is currently on Rocephin. Surgery is planning on keeping the J-tube in for now, no drainage noted from around the insertion site. Aquacel with silver dressings applied to the J-tube insertion site. He is consuming between 75-90% of his meals, still there is a possibility of supplemental tube feedings at night. Patient will receive PICC line placement for IV antibiots infusion today. Discharge planning is in progress for discharge back to rehab facility. Chest x-ray from 11/21/2017 has been reviewed and shows left lower lobe consolidation with air bronchograms with little if any interval change. On 11/23/2017 lab work shows acute elevation in her WBCs up to 31.9, in the absence of fevers, lung sounds are improved, and rests rhonchorous today. No diarrhea, patient had 2 episodes of formed movements yesterday. Blood work was redrawn, and WBCs came back at 35,000. Patient remains awake, alert, denies any worsening dyspnea, but appears to be very fatigued, he states he is not feeling well today. Blood cultures were sent. Patient will be sent for CT of abdomen and pelvis, we will also obtain the chest. His J-tube insertion site is leaking some greenish colored drainage from around the site. Sputum culture from 11/18/2017 showed MSSA. Patient was started on Zosyn per ID service. We will obtain lactic acid level, currently he is maintaining normal blood pressures, on 2 L per nasal cannula pulse ox of 93%. Non-tachycardic with a heart rate in the 80s BPM. Nonoliguric. Yesterday he had a PICC line placed. Still maintaining his oral intake 75% of the caloric intake. Will await results of the chest/abdomen/pelvis. Objective - Vital Signs Vital signs: Vital Signs Temp 98.9 F 11/23/17 06:18 Pulse 80 11/23/17 12:03 Resp 18 11/23/17 06:18 BP 101/66 11/23/17 06:18 Pulse Ox 93 L 11/23/17 08:05 Intake & Output 11/22/17 11/23/17 11/23/17 18:59 06:59 18:59 Intake Total 50 Output Total 2825 600 450 Balance -2825 -600 -400 Weight 35.5 kg 35 kg 35 kg Intake: Intake, IV Titration 50 Amount Piperacillin-Tazobactam 3 50 .375 gm In Dextrose/Water 1 50ml.bag @ 12.5 mls/hr IVPB Q8H [facility] Rx#: [id number] Output: Urine 2825 600 450 Other: Voiding Method Urinal # Voids 9 4 - Exam No acute distress, oriented 3. Appears fatigued, but in no distress. HEENT examination is grossly unremarkable. Mucous membranes are moist. No oral lesions. Neck supple. Full range of motion. No adenopathy thyromegaly or neck vein distention. The patient has a midline tracheostomy tube which is fitted with a speaking valve. Cardiovascular examination reveals regular rhythm rate. S1-S2 normal. No S3 or S4. No discernible murmur noted. Lungs reveal a few scattered rhonchi. Breath sounds are severely diminished. No wheezes. Breath sounds are equal bilaterally. Abdomen soft bowel sounds are heard. No masses or tenderness. Right upper quadrant jejunostomy tube is in place, small amount of green drainage from around the insertion site. around the insertion site is still red, but less excoriated and irritated. Extremities are intact. No cyanosis clubbing or edema. Skin is without rash or lesion. Neurologic examination is brief but nonfocal. - Labs CBC & Chem 7: 11/23/17 09:07 11/23/17 07:58 Labs: Abnormal Lab Results - Last 24 Hours (Table) 11/22/17 11/22/17 11/23/17 Range/Units 17:17 20:43 07:15 WBC (3.8-10.6) k/uL RBC (4.30-5.90) m/uL Hgb (13.0-17.5) gm/dL Hct (39.0-53.0) % MCHC (31.0-37.0) g/dL RDW (11.5-15.5) % Plt Count (150-450) k/uL Neutrophils # (1.3-7.7) k/uL Neutrophils # (Manual) (1.3-7.7) k/uL Lymphocytes # (Manual) (1.0-4.8) k/uL Sodium (137-145) mmol/L Chloride (98-107) mmol/L Carbon Dioxide (22-30) mmol/L Creatinine (0.66-1.25) mg/dL POC Glucose (mg/dL) 121 H 197 H 101 H (75-99) mg/dL Calcium (8.4-10.2) mg/dL 11/23/17 11/23/17 11/23/17 Range/Units 07:58 07:58 09:07 WBC 31.9 H* 35.0 H* (3.8-10.6) k/uL RBC 3.23 L 3.37 L (4.30-5.90) m/uL Hgb 9.4 L 9.7 L (13.0-17.5) gm/dL Hct 30.9 L 32.6 L (39.0-53.0) % MCHC 30.3 L 29.7 L (31.0-37.0) g/dL RDW 16.3 H 17.9 H (11.5-15.5) % Plt Count 473 H (150-450) k/uL Neutrophils # 30.0 H (1.3-7.7) k/uL Neutrophils # (Manual) 34.30 H (1.3-7.7) k/uL Lymphocytes # (Manual) 0.70 L (1.0-4.8) k/uL Sodium 135 L (137-145) mmol/L Chloride 97 L (98-107) mmol/L Carbon Dioxide 32 H (22-30) mmol/L Creatinine 0.29 L (0.66-1.25) mg/dL POC Glucose (mg/dL) (75-99) mg/dL Calcium 7.6 L (8.4-10.2) mg/dL 11/23/17 Range/Units 11:57 WBC (3.8-10.6) k/uL RBC (4.30-5.90) m/uL Hgb (13.0-17.5) gm/dL Hct (39.0-53.0) % MCHC (31.0-37.0) g/dL RDW (11.5-15.5) % Plt Count (150-450) k/uL Neutrophils # (1.3-7.7) k/uL Neutrophils # (Manual) (1.3-7.7) k/uL Lymphocytes # (Manual) (1.0-4.8) k/uL Sodium (137-145) mmol/L Chloride (98-107) mmol/L Carbon Dioxide (22-30) mmol/L Creatinine (0.66-1.25) mg/dL POC Glucose (mg/dL) 172 H (75-99) mg/dL Calcium (8.4-10.2) mg/dL Microbiology - Last 24 Hours (Table) 11/18/17 02:35 Blood Culture - Preliminary Blood No Growth after 120 hours Assessment and Plan Plan: Assessment: 1 COPD exacerbation complicated by left-sided pneumonia, sputum cultures positive for MSSA, patient is currently Rocephin, vancomycin was discontinued per ID service. 2 Status post chronic respiratory failure, with long-term mechanical ventilation and eventual tracheostomy 3 Severe protein calorie malnutrition with kwashiorkor, patient was being supplemented by tube feedings through the jejunostomy . Currently trying to increase his oral intake to meet caloric requirements. Jejunostomy tube is having significant leakage from around the insertion site. Surgery is following , plan is to keep NG tube in for now for possibility of supplemental tube feeds 3 Osteoporosis 4 Gastroesophageal reflux disease 5 GI bleed 6 Scoliosis 7 Peptic ulcer disease 8 Status post cholecystectomy 9 Previous heavy tobacco use or graft 10 chronic anemia, secondary to severe malnutrition, on iron supplementations Plan: Will await CT chest/abdomen/pelvis. Patient is maintaining normal oxygenation, lung sounds reveal less rhonchi bilaterally. Still requiring periodic endotracheal suctioning. There has been acute elevation of WBC, obtain stool for C. diff if able. 6. This patient is non-tachycardic, maintaining normal blood pressures. We'll initiate 0.9 normal saline at the rate of 75 ML per hour , lactic acid. If there is any deterioration in his status. We will patient to the intensive care. Continue monitoring for now. I performed a history & physical examination of the patient and discussed their management with my nurse practitioner, Esthela Garcia. I reviewed the nurse practitioner's note and agree with the documented findings and plan of care. Lung are positive for scattered rhonchi throughout the lung allison. The findings and the impression was discussed with the patient. I attest to the documentation by the nurse practitioner. Time with Patient: Less than 30
--- NOTE | 2017-11-23 16:23 | CT ---
EXAMINATION TYPE: CT chest wo con DATE OF EXAM: 11/23/2017 COMPARISON: Chest x-ray 11/21/2017 HISTORY: Leukocytosis, pneumonia CT DLP: 119.8 mGycm. Automated Exposure Control for Dose Reduction was Utilized. TECHNIQUE: CT scan of the thorax is performed without IV contrast. FINDINGS: Patient is markedly cachectic. LUNGS: There is fluid density present within the trachea with extension in the right mainstem bronchu s. Tracheostomy tube is present. Bilateral hazy nodular densities are present within the lungs, air b ronchograms are present at the left lower lobe with associated parapneumonic effusion. Tree-in-bud de nsities present in the right upper lobe. Some dependent atelectatic change present on the right. No e vident pneumothorax. Subpleural scattered foci of increased attenuation are present bilaterally. MEDIASTINUM: Lack of IV contrast is noted to limit evaluation for mediastinal and especially hilar ad enopathy. There are no definitive greater than 1 cm hilar or mediastinal lymph nodes. Left-sided PI CC line is present, distal tip is within the region of the cavoatrial junction No cardiomegaly or per icardial effusion is seen. OTHER: Lack of contrast may compromise the exam. IMPRESSION: Findings compatible with bronchopneumonia bilaterally, consider aspiration.
--- NOTE | 2017-11-23 16:39 | CT ---
EXAMINATION TYPE: CT abdomen pelvis w con DATE OF EXAM: 11/23/2017 COMPARISON: 09/22/2017 HISTORY: Left lower quadrant pain and leukocytosis. CT DLP: 353.6 mGycm Automated exposure control for dose reduction was used. TECHNIQUE: Helical acquisition of images was performed from the lung bases through the pelvis. CONTRAST: Performed with Oral Contrast and with IV Contrast, patient injected with 100 mL of Omnipaque 300. FINDINGS: Again the exam is limited by diffuse anasarca, cachexia and moderate abdominal ascites is s een on the prior examination. LUNG BASES: There is a pectus excavatum deformity. Similar-appearing small left pleural effusion and left basilar airspace disease, likely compressive atelectasis are redemonstrated in comparison to the prior exam. Additionally interseptal lobular thickening and reticular nodular opacities throughout t he right lung base and right middle lobe are also redemonstrated. Right middle lobe area of nodularit y was not seen medially on series 3 image 6 on the prior examination and also likely relates to atele ctasis. Moderate hiatal hernia is also seen. LIVER/GB: There is mild intrahepatic and more significant extra hepatic biliary ductal dilatation, li sasha related to the postcholecystectomy status. PANCREAS: There is main pancreatic ductal dilatation, progressed from the prior exam of 09/22/2017. N o discrete pancreatic mass is identified. SPLEEN: No significant abnormality is seen. ADRENALS: No significant abnormality is seen. KIDNEYS: There is a 3 mm left lower pole nonobstructing renal calculus as seen on the prior exam. No evidence of hydronephrosis or right-sided nephrolithiasis. Kidneys enhance symmetrically. FREE AIR: No free air is visualized. URINARY BLADDER: No significant abnormality is seen. ADENOPATHY: No greater than 1 cm short axis lymph nodes are seen within the abdomen or pelvis. OSSEOUS STRUCTURES: Osteopenia remains. Multilevel mild degenerative changes of the thoracolumbar sp ine.. BOWEL: Postsurgical changes of Cornelia-en-Y gastric bypass. The previously seen bowel wall thickening c ircumferentially and diffusely of the colon has resolved in the interim. OTHER: The previously seen intra-abdominal fluid collections are less well-defined on today's examina tion and a left perirenal area measures approximately 1.5 cm as opposed to 2.2 cm. The collection ant erior to the left kidney and superior to the pancreas no longer has well-defined borders and insinuat es along the fat planes. This appears similar to the prior exam. Jejunostomy tube is again noted. The previously seen right femoral central venous catheter has been removed as has the urinary bladder Garcai catheter. IMPRESSION: 1. DECREASE IN SIZE OF THE PREVIOUSLY SEEN LEFT PERINEPHRIC FLUID COLLECTION AND SIMILAR OF THE ELONG ATED FLUID COLLECTION ADJACENT TO THE LESSER CURVATURE OF THE CORNELIA-EN-Y GASTRIC POUCH. THIS IS LESS C LEARLY DEFINED IN TODAY'S EXAMINATION AND CANNOT BE ACCURATELY MEASURED. 2. REDEMONSTRATION OF CACHEXIA, DIFFUSE ANASARCA AND MODERATE ASCITES LIMITING THE EXAMINATION. 3. REDEMONSTRATION OF A NONOBSTRUCTING 4 MM LEFT RENAL CALCULUS. 4. SMALL LEFT PLEURAL EFFUSION AND LEFT BASILAR CONSOLIDATION FAVORING ATELECTASIS. MULTIFOCAL RIGHT- SIDED CONSOLIDATIONS AND INTERSEPTAL LOBULAR THICKENING ALSO FAVOR ATELECTASIS WITH MILD INTERSTITIAL PULMONARY EDEMA. ALTERNATIVELY ATYPICAL EARLY PNEUMONIA MAY BE PRESENT WITHIN THE RIGHT MIDDLE AND L OWER LOBES.
[2017-11-23 17:22] LABS: Glucose,Whole Blood 129 mg/dL (75-99)
[2017-11-23 20:36] LABS: Glucose,Whole Blood 198 mg/dL (75-99)
[2017-11-23] MEDS ORDERED: SODIUM CHLORIDE 0.9% 500 ML IV ONE (22:04)
[2017-11-23] MEDS: CITALOPRAM HYDROBROMIDE 20 MG TAB PO SCH (22:14)
[2017-11-24] MEDS: ONDANSETRON 4 MG/2 ML VIAL IVP PRN ×5 (00:28→21:25)
[2017-11-24] MEDS: PIPERACILLIN-TAZOBACTAM 3.375 GM in DEXTROSE/WATER 1 50ML.BAG IVPB SCH ×3 (03:01→21:26)
[2017-11-24] MEDS: MORPHINE ORAL SOLN 10 MG/5 ML CUP PO SCH ×3 (03:01→18:42)
[2017-11-24] MEDS: ALPRAZolam 0.5 MG TAB PO PRN ×3 (03:07→18:43)
[2017-11-24] MEDS: SODIUM CHLORIDE 0.9% 1,000 ML IV SCH ×2 (03:53→17:00)
[2017-11-24] MEDS: GABAPENTIN 300 MG CAP PO SCH ×4 (06:45→23:34)
[2017-11-24 07:54] LABS: Glucose,Whole Blood 126 mg/dL (75-99)
[2017-11-24] MEDS: HEPARIN SODIUM,PORCINE 5,000 UNIT/ML 1 ML VIAL SQ SCH ×2 (07:57→21:25)
[2017-11-24] MEDS: PANTOPRAZOLE 40 MG TABLET PO SCH ×2 (07:58→21:25)
[2017-11-24] MEDS: FORMOTEROL FUMARATE 20 MCG/2 ML NEBU INHALATION SCH ×2 (08:09→20:54)
[2017-11-24] MEDS: BUDESONIDE 1 MG/2 ML NEBU INHALATION SCH ×2 (08:09→20:54)
[2017-11-24] MEDS: IPRATROPIUM-ALBUTEROL 3 ML NEB INHALATION SCH ×4 (08:09→20:55)
[2017-11-24 09:02] LABS: Anisocytosis Slight; Basophils % (A) 0 %; Eosinophils # (A) 0.3 k/uL (0-0.7); Eosinophils % (A) 1 %; HCT 27.6 % (39.0-53.0); Hypochromasia Marked; Lymphocytes # (A) 0.9 k/uL (1.0-4.8); Lymphocytes % (A) 3 %; MCH 28.8 pg (25.0-35.0); MCHC 29.6 g/dL (31.0-37.0); MCV 97.3 fL (80.0-100.0); Macrocytosis Slight; Mean Platelet Volume 7.4; Monocytes # (A) 0.6 k/uL (0-1.0); Monocytes % (A) 2 %; Neutrophils # (A) 26.5 k/uL (1.3-7.7); Neutrophils % (A) 93 %; Platelet Count 465 k/uL (150-450); RBC 2.84 m/uL (4.30-5.90); RDW 16.6 % (11.5-15.5)
[2017-11-24 09:16] LABS: WBC 28.5 k/uL (3.8-10.6)
[2017-11-24 09:17] LABS: HGB 8.2 gm/dL (13.0-17.5)
[2017-11-24 09:35] LABS: ALT 19 U/L (21-72); AST 12 U/L (17-59); Albumin 1.7 g/dL (3.5-5.0); Alkaline Phosphatase 208 U/L (38-126); Anion Gap 7 mmol/L; Blood Urea Nitrogen 8 mg/dL (9-20); Calcium 7.2 mg/dL (8.4-10.2); Carbon Dioxide 30 mmol/L (22-30); Chloride 103 mmol/L (98-107); Glucose 89 mg/dL (74-99); Potassium 3.1 mmol/L (3.5-5.1); Sodium 140 mmol/L (137-145); Total Bilirubin 0.1 mg/dL (0.2-1.3); Total Protein 4.7 g/dL (6.3-8.2)
--- NOTE | 2017-11-24 09:47 | PN ---
PROGRESS NOTE DATE OF SERVICE: 11/23/2017 REASON FOR FOLLOWUP: Pneumonia. INTERVAL HISTORY: This morning the patient was afebrile. He was noticed to have significant worsening of his white count, which was up to 31.9; it was 11.6 yesterday. The repeat was 35, 000. Patient says he is not feeling well, with generalized weakness and no energy. He did have some cough, bringing up some sputum but no hemoptysis. No abdominal pain. He did not have any diarrhea. PHYSICAL EXAMINATION: Blood pressure 101/65 with a pulse of 124, temperature 96.9. He is 92% on 2 L nasal cannula. General description is a middle-aged male lying in bed in no distress. RESPIRATORY SYSTEM: Unlabored breathing. Some decreased breath sounds in the bases. No wheeze. HEART: S1, S2. Regular rate and rhythm. ABDOMEN: Soft. No tenderness. EXTREMITIES: No edema of the feet. LABS: BUN of 9, creatinine 0.29, white count of 35,000. Initial sputum was Staph aureus, now with significant jump in his white count. CT abdomen and pelvis as well as CT chest which was done by primary team with evidence of pneumonia. Antibiotic has been broadened to Zosyn. Repeat culture has been ordered and both sputum as well as blood. Will re-evaluate the patient and follow up on the cultures to adjust the medication further if needed. MMODL / IJN: [id number] / MTDD
[2017-11-24] MEDS: MENTHOL-ZINC OXIDE OINT 113 GM TUBE TOPICAL PRN (10:15)
[2017-11-24] MEDS ORDERED: guaiFENesin SYRUP 100MG/5ML 200 MG/10 ML CUP PO PRN ×2 (10:49→10:52)
[2017-11-24] MEDS: POTASSIUM CHLORIDE ER 20 MEQ TAB.ER PO SCH ×2 (11:24→13:03)
[2017-11-24] MEDS: METOPROLOL TARTRATE 12.5 MG TAB PO SCH ×2 (11:25→21:24)
[2017-11-24] MEDS: MULTIVITAMINS, THERA 1 EACH TAB PO SCH (11:26)
[2017-11-24] MEDS: HYDROcodone/APAP 10-325MG 1 EACH TAB PO PRN (13:04)
[2017-11-24 13:06] LABS: Glucose,Whole Blood 116 mg/dL (75-99)
--- NOTE | 2017-11-24 14:40 | P.PN ---
Subjective Progress Note Date: 11/24/17 This is a 42-year-old male who apparently was in our ICU for a number of days and weeks. The patient underwent tracheostomy for respiratory failure and failure to wean. He apparently was transferred to one of the specialized nursing facilities or long-term acute care units. Apparently the patient was weaned there. He apparently was eventually weaned to trach collar and then to nasal prongs. Tracheostomy tube is still in place. The patient was sent then to rehabilitation at [facility]. He's been there for some time. He comes here with complaints of increasing shortness of breath chest congestion and fever chills and phlegm production. The patient just doesn't feel like he is was doing as well as he had been doing. He apparently was evaluated in the emergency room and thought to have pneumonia. Chest x-ray shows retrocardiac infiltrate with some air bronchograms in the left lower lobe and some left midlung infiltrates as well. I'm seeing the patient for COPD exacerbation and left-sided pneumonia. The patient is alert and well. The patient has a tracheostomy tube in place. The patient is receiving nasal oxygen. He does feel better today than yesterday. On 11/19/2017 patient seen in follow-up. Resting comfortably in bed, in no acute distress. Staff suctioning large amount of sputum, solares espinal in color. Patient does have productive cough. Lung sounds are positive for scattered rhonchi bilaterally. Remains afebrile, vital signs are stable, currently on 2 L per nasal cannula set 100%. Labs have been reviewed, WBC is on a downward trend, down to 12.2, hemoglobin is 8.5, sodium is 138, potassium 3.9, CO2 is 31 , B1 17, creatinine 0.26. Influenza screen was negative. Patient is awake, alert, oriented 3. Tracheostomy is in place with a speaking valve. Patient is tolerating oral intake, fair appetite. His on combination of cefepime, Levaquin, Zosyn. Blood and sputum cultures are pending. On 11/20/2017 patient seen in follow-up. Denies any worsening dyspnea, denies at 2 L per nasal cannula, O2 sat at 100%. Afebrile, vitals are stable. Sputum culture shows presumptive staph aureus, blood culture showed no growth at 48 hour prince. Patient continues on cefepime, vancomycin was added by the ID service. Staff is still suctioning moderate amount of espinal colored endotracheal secretions. Patient is tolerating oral intake, states she is trying to increase his oral intake. Calorie count is in progress. Patient was seen by general surgery in regards to the draining jejunostomy tube. Gen. surgery has no plans to replace the tube. If patient can sustain adequate calorie intake, surgery prefers to discontinue it altogether. Chest x-ray from 11/19/2017 has been reviewed and shows left lower lobe pneumonia and associated effusion. Lung sounds sound somewhat improved, although still positive for scattered rhonchi and congested cough. On 11/21/2017 patient seen in follow-up on medical surgical floor. Currently sitting up in the chair, in no acute distress. He on 2 L per nasal cannula with O2 sat at 98%, afebrile, vital signs are stable. He is eating between 75% of his meals, his tube feedings are currently on hold. The J-tube insertion site looks dry today, with decreased drainage from around the insertion site, less irritated and excoriated. Patient would like to keep it for another week, see if he can sustain his oral intake to maintain his caloric requirements. His sputum culture shows MSSA. Currently on Rocephin, cefepime was discontinued , vancomycin was discontinued as well. ID service is following. Lung sounds continue to improve, with better aeration, still positive for some scattered rhonchi, staff still suctions espinal colored secretions from endotracheal stoma. On 11/22/2017 patient seen again in medical surgical floor. Denies any worsening dyspnea, he is awake and alert, resting in bed, his mood is depressed. He continues to require endotracheal suctioning, sputum was espinal- brownish color. Vitals remains stable, he is afebrile scattered rhonchi, more so on the left. Sputum culture was positive for MSSA, patient is currently on Rocephin. Surgery is planning on keeping the J-tube in for now, no drainage noted from around the insertion site. Aquacel with silver dressings applied to the J-tube insertion site. He is consuming between 75-90% of his meals, still there is a possibility of supplemental tube feedings at night. Patient will receive PICC line placement for IV antibiots infusion today. Discharge planning is in progress for discharge back to rehab facility. Chest x-ray from 11/21/2017 has been reviewed and shows left lower lobe consolidation with air bronchograms with little if any interval change. On 11/23/2017 lab work shows acute elevation in her WBCs up to 31.9, in the absence of fevers, lung sounds are improved, and rests rhonchorous today. No diarrhea, patient had 2 episodes of formed movements yesterday. Blood work was redrawn, and WBCs came back at 35,000. Patient remains awake, alert, denies any worsening dyspnea, but appears to be very fatigued, he states he is not feeling well today. Blood cultures were sent. Patient will be sent for CT of abdomen and pelvis, we will also obtain the chest. His J-tube insertion site is leaking some greenish colored drainage from around the site. Sputum culture from 11/18/2017 showed MSSA. Patient was started on Zosyn per ID service. We will obtain lactic acid level, currently he is maintaining normal blood pressures, on 2 L per nasal cannula pulse ox of 93%. Non-tachycardic with a heart rate in the 80s BPM. Nonoliguric. Yesterday he had a PICC line placed. Still maintaining his oral intake 75% of the caloric intake. Will await results of the chest/abdomen/pelvis. On 11/24/2017 the patient is being seen on a follow-up. He is still doing very poorly. He is a failure to thrive. Very much malnourished. He has absolutely no muscle mass and no fat preserved. He looks very cachectic. There was concern that he was septic at this point specially that his white cell count was as high as 31.9 yesterday. He was started on broad-spectrum antibiotics. Cultures were sent. CAT scan of the chest abdomen and pelvis was also done. On today's evaluation is afebrile. White cell count has dropped down to 28.5. The patient was found to have Angie and sputum. Urine cultures are still pending for now. Meanwhile there was a prior sputum analysis on 11/18/2017 that showed staph aureus/MSSA. This computed tomography scan of the chest was done without contrast and it showed fluid material within the trachea and the right mainstem bronchus, tracheostomy tube was present, bilateral hazy no other densities are seen within the lungs and air bronchograms are present in the left lower lobe associated with some small left-sided pleural effusion. There is also areas of she and blood densities present in the right upper lobe. Overall findings are consistent with postinfectious changes versus ongoing aspiration. As for the mediastinal, there is no significant abnormalities. The computed tomography scan of the abdomen was also noted and it showed decrease in the size of previously noted left perinephric fluid collection and similar of the elongated fluid collection adjacent to the lesser curvature of the one Y gastric pouch. This was less clearly identified on the follow-up CAT scan of the abdomen. There is evidence of anasarca and moderate ascites. There is nonobstructing 4 mm left renal calculus, small vessel pleural effusion. The patient is taking orally and I was told that he was taking around 5075% of his meals. He still has the J-tube in place and the skin around the tube insertion is somewhat eroded. There is no evidence of necrosis or active infection at that location. ID is on the case. The patient on broad-spectrum antibiotics. He did have a single BM and there is no clear indication of an underlying diarrhea or C. diff colitis. Objective - Vital Signs Vital signs: Vital Signs Temp 98.0 F 11/24/17 07:00 Pulse 96 11/24/17 12:06 Resp 20 11/24/17 08:00 BP 134/91 11/24/17 07:00 Pulse Ox 95 11/24/17 08:12 Intake & Output 11/23/17 11/24/17 11/24/17 18:59 06:59 18:59 Intake Total 50 150 Output Total 650 550 Balance -600 -400 Weight 35 kg 37.5 kg Intake: Intake, IV Titration 50 Amount Piperacillin-Tazobactam 3 50 .375 gm In Dextrose/Water 1 50ml.bag @ 12.5 mls/hr IVPB Q8H [facility] Rx#: [id number] Oral 150 Output: Urine 650 550 Other: Voiding Method Urinal Urinal Urinal # Voids 1 2 1 - Exam Patient is awake and alert. He looks extremely debilitated. Upon inspection, he has no muscle mass, he has no fat reserve, he has temporal wasting, he is skin and bone, all of his bones including the facial bones and the chest bones and the hip bones are significantly exaggerated due to absence of any subcutaneous fat and muscle. He looks not in significant respiratory distress. He looks very miserable and obviously has changes consistent with failure to thrive and kwashiorkor. Head is atraumatic normocephalic. Neck is supple and the mucous membranes are dry tracheostomy tube in place and the patient has a tracheostomy tube that is capped at this point. Lungs are diminished bilaterally scattered rhonchi.Cardiac exam revealed the PMI to be normally situated and sized. The rhythm was regular and no extrasystoles were noted during several minutes of auscultation. The first and second heart sounds were normal and physiologic splitting of the second heart sound was noted. There were no murmurs, rubs, clicks, or gallops. Abdomen is soft. There is some mild ascites. No direct tenderness rebound tensile guarding. There is a J- tube in place and the exit site is somewhat erythematous and the skin is irritated and erythematous and eroded. Nevertheless there is no necrosis or disruption in the abdominal wall at that level. No purulent discharge. Extremities are showing severe muscle atrophy, no cyanosis or clubbing at this point. Neurologically awake and alert. Unable to ambulate. Resting comfortably in bed. His is able to move all 4 extremities. - Labs CBC & Chem 7: 11/24/17 08:36 11/24/17 08:36 Labs: Abnormal Lab Results - Last 24 Hours (Table) 11/23/17 11/23/17 11/23/17 Range/Units 15:00 17:03 20:34 WBC (3.8-10.6) k/uL RBC (4.30-5.90) m/uL Hgb (13.0-17.5) gm/dL Hct (39.0-53.0) % MCHC (31.0-37.0) g/dL RDW (11.5-15.5) % Plt Count (150-450) k/uL Neutrophils # (1.3-7.7) k/uL Lymphocytes # (1.0-4.8) k/uL Potassium (3.5-5.1) mmol/L BUN (9-20) mg/dL Creatinine (0.66-1.25) mg/dL POC Glucose (mg/dL) 129 H 198 H (75-99) mg/dL Calcium (8.4-10.2) mg/dL Total Bilirubin (0.2-1.3) mg/dL AST (17-59) U/L ALT (21-72) U/L Alkaline Phosphatase (38-126) U/L Total Protein (6.3-8.2) g/dL Albumin (3.5-5.0) g/dL Urine Protein 1+ H (Negative) Urine Blood Small H (Negative) Urine RBC 10 H (0-5) /hpf Amorphous Sediment Rare H (None) /hpf Hyaline Casts 14 H (0-2) /lpf Urine Mucus Few H (None) /hpf 11/24/17 11/24/17 11/24/17 Range/Units 07:53 08:36 08:36 WBC 28.5 H* (3.8-10.6) k/uL RBC 2.84 L (4.30-5.90) m/uL Hgb 8.2 L D (13.0-17.5) gm/dL Hct 27.6 L (39.0-53.0) % MCHC 29.6 L (31.0-37.0) g/dL RDW 16.6 H (11.5-15.5) % Plt Count 465 H (150-450) k/uL Neutrophils # 26.5 H (1.3-7.7) k/uL Lymphocytes # 0.9 L (1.0-4.8) k/uL Potassium 3.1 L (3.5-5.1) mmol/L BUN 8 L (9-20) mg/dL Creatinine 0.30 L (0.66-1.25) mg/dL POC Glucose (mg/dL) 126 H (75-99) mg/dL Calcium 7.2 L (8.4-10.2) mg/dL Total Bilirubin 0.1 L (0.2-1.3) mg/dL AST 12 L (17-59) U/L ALT 19 L (21-72) U/L Alkaline Phosphatase 208 H (38-126) U/L Total Protein 4.7 L (6.3-8.2) g/dL Albumin 1.7 L (3.5-5.0) g/dL Urine Protein (Negative) Urine Blood (Negative) Urine RBC (0-5) /hpf Amorphous Sediment (None) /hpf Hyaline Casts (0-2) /lpf Urine Mucus (None) /hpf 11/24/17 Range/Units 12:26 WBC (3.8-10.6) k/uL RBC (4.30-5.90) m/uL Hgb (13.0-17.5) gm/dL Hct (39.0-53.0) % MCHC (31.0-37.0) g/dL RDW (11.5-15.5) % Plt Count (150-450) k/uL Neutrophils # (1.3-7.7) k/uL Lymphocytes # (1.0-4.8) k/uL Potassium (3.5-5.1) mmol/L BUN (9-20) mg/dL Creatinine (0.66-1.25) mg/dL POC Glucose (mg/dL) 116 H (75-99) mg/dL Calcium (8.4-10.2) mg/dL Total Bilirubin (0.2-1.3) mg/dL AST (17-59) U/L ALT (21-72) U/L Alkaline Phosphatase (38-126) U/L Total Protein (6.3-8.2) g/dL Albumin (3.5-5.0) g/dL Urine Protein (Negative) Urine Blood (Negative) Urine RBC (0-5) /hpf Amorphous Sediment (None) /hpf Hyaline Casts (0-2) /lpf Urine Mucus (None) /hpf Microbiology - Last 24 Hours (Table) 11/23/17 12:00 Gram Stain - Preliminary Sputum Sputum Culture - Preliminary Angie albicans 11/23/17 09:07 Blood Culture - Preliminary Blood No Growth after 24 hours 11/18/17 02:35 Blood Culture - Final Blood No Growth after 144 hours 11/23/17 15:00 Urine Culture - Preliminary Urine,Clean Catch Assessment and Plan Plan: 1 pneumonia versus ongoing aspiration is suspected based on the CAT scan findings. There is fluid within the right mainstem bronchus and the trachea is very much likely the patient is aspirating this material. Areas of tree and bud appearance and areas of consolidation small left-sided pleural effusion. There is MSSA within the sputum. 2 Status post chronic respiratory failure, with long-term mechanical ventilation and eventual tracheostomy 3 Severe protein calorie malnutrition with kwashiorkor, patient was being supplemented by tube feedings through the jejunostomy . Currently trying to increase his oral intake to meet caloric requirements. Jejunostomy tube is having significant leakage from around the insertion site. Surgery is following , plan is to keep NG tube in for now for possibility of supplemental tube feeds 3 Osteoporosis 4 Gastroesophageal reflux disease 5 GI bleed 6 Scoliosis 7 Peptic ulcer disease 8 Status post cholecystectomy 9 Previous heavy tobacco use or graft 10 chronic anemia, secondary to severe malnutrition, on iron supplementations Plan This is a very complicated case. Outcome, this patient is obviously going to be poor based on the fact that the patient is having significant complications of his severe chronic malnourishment. He is extremely weak. Very debilitated. Performance status is very poor. My suggestion is to give this patient enteral feeding through the J-tube rather than oral feeding special ed the CAT scan of the chest showed evidence of potential aspiration. The patient is currently being supplemented overnight with enteral feeding. He is also being treated for an acute sepsis knowing that he had developed acute leukocytosis and clinically his condition was getting worse. Antibiotics have been broadened. Awaiting further cultures. Monitor white cell count. Prognosis obviously poor due to the above-mentioned comorbidities.
[2017-11-24] MEDS: guaiFENesin SYRUP 100MG/5ML 200 MG/10 ML CUP PO SCH ×2 (15:28→21:24)
--- NOTE | 2017-11-24 16:33 | P.PN ---
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 Patient was intubated twice during his hospital stay and tracheostomy was placed by Dr. Espinal eventually on October 05 for failure to wean. Patient was just [facility] [place] [facility] days ago. He was transitioned to [facility] few days after his discharge according to patient. He was doing great and had no difficulty swallowing his meal is currently taking oral pill through his mouth. According to mother bedside patient had fever, chills, phlegm production associated with some congestion and shortness of breath. He wears oxygen intermittently at the facility. Rapid flu was negative. Chest x- ray suggestive of a retrocardiac infiltrate with some air bronchograms in the left lower lobe and left mid lung. Abdomen done in the ER was positive for WBC 29.8, hemoglobin 9.9, creatinine 0.3, albumin 2. Patient is tachycardic, requiring 3 L of oxygen saturating at 96% with blood pressure 101/73. Patient initiated on broad-spectrum antibiotic for acute hypoxic respiratory failure secondary to pneumonia. Antibiotic coverage with cefepime and levofloxacin. Pulmonary consult placed. Speech evaluation to assess swallow. 11/19: Patient has been seen by speech therapy and he is able to eat a regular diet which will be placed. He has not had any nausea or vomiting. Dietitian is also adding in tube feedings. IV fluids will be changed to saline lock. Patient does have significant amount of sputum from his trach area and is being suctioned. Mucinex added. Noted to have J-tube leakage at the site of green liquid. Dr. Espinal will be consulted 11/20: Patient is having less drainage from his trach today and still requires suctioning. He continues to have drainage from the J-tube site and local wound care is Aquacel Ag. He is currently on IV antibiotics with cefepime and vancomycin. He is undergoing calorie count to determine if she tube can be discontinued. 11/21: Patient is complaining of his stomach feeling swollen and pain. He did not have a bowel movement today. Patient did not meet the calorie count requirements to have his J-tube removed. Surgery is looking at possibly replacing it due to drainage at the site. Sputum culture is reported as MSSA and vanco will be discontinued. Solu-Medrol will be discontinued. WBC is currently at 14.5 and hemoglobin 7.7, potassium will be replaced 11/22: There is no plan for surgery to replace J-tube at this time. Patient has minimal drainage from the site but concern is that once feedings resume, patient will have increased drainage again. Patient may need this removed as an outpatient. Patient is to start nighttime feedings. Dr. Mclaughlin recommended PICC placement and IV antibiotics with Rocephin for 2 weeks. Anticipate discharge back to [facility] tomorrow. 11/23:patient had a jump in his white count to 35. Dr. Mclaughlin has changed his antibiotics to Zosyn. Patient is having some left lower quadrant pain for which CAT scan of the abdomen and pelvis has been ordered. Discharge to [facility] will be held today.Dr. Coulter has added CT of the chest as well. 11/24: Patient still has rhonchi, and thick secretions, deep suctioning to trach was scheduled twice a day as well as necessary, scheduled Mucinex, leukocytosis has come down currently at 28,000, cultures from 126 was Angie albicans, culture from May 18 sputum was staph aureus MSSA, blood cultures remain negative, no diarrhea, stools needed to be submitted for C. difficile and diarrhea ensues CAT scan shows bronchopneumonia bilaterally with parapneumonic effusion left side CT of abdomen and pelvis showed mild intrahepatic and extrahepatic dilatation with post cholecystectomy status, progression of main pancreatic duct dilated patient compared to August 2017, no pancreatic mass as noted 3 mm nonobstructing calculus no hydronephrosis Objective - Vital Signs Vital signs: Vital Signs Temp 97.0 F L 11/24/17 15:00 Pulse 106 H 11/24/17 15:00 Resp 18 11/24/17 15:00 BP 120/79 11/24/17 15:00 Pulse Ox 98 11/24/17 15:00 Intake & Output 11/23/17 11/24/17 11/24/17 18:59 06:59 18:59 Intake Total 50 150 Output Total 650 550 Balance -600 -400 Weight 35 kg 37.5 kg Intake: Intake, IV Titration 50 Amount Piperacillin-Tazobactam 3 50 .375 gm In Dextrose/Water 1 50ml.bag @ 12.5 mls/hr IVPB Q8H [facility] Rx#: [id number] Oral 150 Output: Urine 650 550 Other: Voiding Method Urinal Urinal Urinal # Voids 1 2 1 - Constitutional General appearance: Present: mild distress, thin - EENT Eyes: Present: anicteric sclerae, EOMI, PERRLA, dentition normal ENT: Present: NA/AT, normal oropharynx - Respiratory Respiratory: bilateral: rhonchi, prolonged expiration, prolonged inspiration - Cardiovascular Rhythm: regular Heart sounds: normal: S1, S2 Abnormal Heart Sounds: Absent: systolic murmur, diastolic murmur, rub, S3 Gallop , S4 Gallop, click, other - Gastrointestinal General gastrointestinal: Present: normal bowel sounds, soft - Integumentary Integumentary: Present: decreased turgor, normal - Neurologic Neurologic: Present: CNII-XII intact - Musculoskeletal Musculoskeletal: Present: generalized weakness, strength equal bilaterally - Psychiatric Psychiatric: Present: A&O x's 3, appropriate affect, intact judgment & insight - Labs CBC & Chem 7: 11/24/17 08:36 11/24/17 08:36 Labs: Abnormal Lab Results - Last 24 Hours (Table) 11/23/17 11/23/17 11/24/17 Range/Units 17:03 20:34 07:53 WBC (3.8-10.6) k/uL RBC (4.30-5.90) m/uL Hgb (13.0-17.5) gm/dL Hct (39.0-53.0) % MCHC (31.0-37.0) g/dL RDW (11.5-15.5) % Plt Count (150-450) k/uL Neutrophils # (1.3-7.7) k/uL Lymphocytes # (1.0-4.8) k/uL Potassium (3.5-5.1) mmol/L BUN (9-20) mg/dL Creatinine (0.66-1.25) mg/dL POC Glucose (mg/dL) 129 H 198 H 126 H (75-99) mg/dL Calcium (8.4-10.2) mg/dL Total Bilirubin (0.2-1.3) mg/dL AST (17-59) U/L ALT (21-72) U/L Alkaline Phosphatase (38-126) U/L Total Protein (6.3-8.2) g/dL Albumin (3.5-5.0) g/dL 11/24/17 11/24/17 11/24/17 Range/Units 08:36 08:36 12:26 WBC 28.5 H* (3.8-10.6) k/uL RBC 2.84 L (4.30-5.90) m/uL Hgb 8.2 L D (13.0-17.5) gm/dL Hct 27.6 L (39.0-53.0) % MCHC 29.6 L (31.0-37.0) g/dL RDW 16.6 H (11.5-15.5) % Plt Count 465 H (150-450) k/uL Neutrophils # 26.5 H (1.3-7.7) k/uL Lymphocytes # 0.9 L (1.0-4.8) k/uL Potassium 3.1 L (3.5-5.1) mmol/L BUN 8 L (9-20) mg/dL Creatinine 0.30 L (0.66-1.25) mg/dL POC Glucose (mg/dL) 116 H (75-99) mg/dL Calcium 7.2 L (8.4-10.2) mg/dL Total Bilirubin 0.1 L (0.2-1.3) mg/dL AST 12 L (17-59) U/L ALT 19 L (21-72) U/L Alkaline Phosphatase 208 H (38-126) U/L Total Protein 4.7 L (6.3-8.2) g/dL Albumin 1.7 L (3.5-5.0) g/dL Microbiology - Last 24 Hours (Table) 11/23/17 12:00 Gram Stain - Preliminary Sputum Sputum Culture - Preliminary Angie albicans 11/23/17 09:07 Blood Culture - Preliminary Blood No Growth after 24 hours 11/18/17 02:35 Blood Culture - Final Blood No Growth after 144 hours 11/23/17 15:00 Urine Culture - Preliminary Urine,Clean Catch Assessment and Plan Plan: 1. Sepsis and acute hypoxemic respiratory failure from left lower lobe MSSA pneumonia and COPD. Continue Zosyn. Sputum culture as above. Continue Pulmicort and Perforomist with DuoNeb for shortness of breath. trach collar in place. Pulmonary recommendation pending regarding D cannulization of the trach. PICC line placed. CAT scan of the chest, abdomen and pelvis ordered. Scheduled trach suctioning twice a day and when necessary every 6, schedule Mucinex 400 mg 3 times a day pulmonary following closely 2. Severe protein calorie malnutrition with kwashiorkor thought to be due to significant stenosis of the gastrojejunostomy site. EGD performed by Dr. Espinal and underwent open jejunostomy tube on September 26. COntinue feeding via J tube. Dr. Espinal consult requested for leakage at the J-tube site. 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 4. Severe hypoalbuminemia secondary to poor oral intake of fluid and severe protein calorie malnutrition with kwashiorkor. Nutrition consult. Ensure with meals, J-tube feedings 5. History of migraine headache. Stable at this point in time. 6. Chronic pain syndrome. Continue long-acting morphine sulfate, with norco for break through pain, continue gabapentin 7. Bilateral lower extremity neuropathy. Continue gabapentin 300 3 times a day via G-tube 8. DVT prophylaxis. Continue heparin 5000 units subcutaneously every 12 hours. 9. GI prophylaxis. Continue patient on Protonix 40 mg IV push every 24 hours. 10. Patient is full code. 11. Body mass index is 10 12. Acute on chronic blood loss anemia, chronic secondary to severe malnourishment. FOBT on 09/17 was positive. Patient is on iron pills and has dark stool output from J tube. Hb stable. No ulceration was seen during the EGD. Follow-up with gastroenterology as outpatient 13. COPD 14. Debility, expected discharge to skilled ECF patient has very poor muscle deconditioning secondary to severe cachexia and generalized muscle atrophy
[2017-11-24 17:10] LABS: Glucose,Whole Blood 126 mg/dL (75-99)
[2017-11-24 20:50] LABS: Glucose,Whole Blood 217 mg/dL (75-99)
[2017-11-24] MEDS: CITALOPRAM HYDROBROMIDE 20 MG TAB PO SCH (21:25)
[2017-11-25] MEDS: MORPHINE ORAL SOLN 10 MG/5 ML CUP PO SCH ×3 (03:26→20:00)
[2017-11-25] MEDS: ALPRAZolam 0.5 MG TAB PO PRN ×3 (03:26→20:02)
[2017-11-25] MEDS: PIPERACILLIN-TAZOBACTAM 3.375 GM in DEXTROSE/WATER 1 50ML.BAG IVPB SCH ×3 (03:28→21:39)
[2017-11-25] MEDS: ONDANSETRON 4 MG/2 ML VIAL IVP PRN ×5 (04:45→21:39)
[2017-11-25] MEDS: HYDROcodone/APAP 10-325MG 1 EACH TAB PO PRN ×2 (04:45→17:08)
[2017-11-25] MEDS: GABAPENTIN 300 MG CAP PO SCH ×3 (05:47→18:05)
[2017-11-25] MEDS: SODIUM CHLORIDE 0.9% 1,000 ML IV SCH ×2 (05:47→20:03)
[2017-11-25] MEDS: BUDESONIDE 1 MG/2 ML NEBU INHALATION SCH ×2 (07:36→20:54)
[2017-11-25] MEDS: IPRATROPIUM-ALBUTEROL 3 ML NEB INHALATION SCH ×4 (07:36→20:54)
[2017-11-25] MEDS: FORMOTEROL FUMARATE 20 MCG/2 ML NEBU INHALATION SCH ×2 (07:36→20:54)
[2017-11-25 07:51] LABS: Glucose,Whole Blood 111 mg/dL (75-99)
[2017-11-25 09:01] LABS: Anion Gap 5 mmol/L; Blood Urea Nitrogen 7 mg/dL (9-20); Calcium 7.5 mg/dL (8.4-10.2); Carbon Dioxide 31 mmol/L (22-30); Chloride 106 mmol/L (98-107); Glucose 107 mg/dL (74-99); Magnesium 1.6 mg/dL (1.6-2.3); Potassium 3.1 mmol/L (3.5-5.1); Sodium 142 mmol/L (137-145)
[2017-11-25] MEDS: HEPARIN SODIUM,PORCINE 5,000 UNIT/ML 1 ML VIAL SQ SCH ×2 (09:12→21:40)
[2017-11-25] MEDS: METOPROLOL TARTRATE 12.5 MG TAB PO SCH ×2 (09:12→21:40)
[2017-11-25] MEDS: FLUCONAZOLE ORAL SUSP 1,400 MG/35 ML BOTTLE PEG/G-TUBE SCH (09:13)
[2017-11-25] MEDS: PANTOPRAZOLE 40 MG TABLET PO SCH ×2 (09:13→21:40)
[2017-11-25] MEDS: guaiFENesin SYRUP 100MG/5ML 200 MG/10 ML CUP PO SCH ×3 (09:13→21:41)
[2017-11-25 09:22] LABS: Anisocytosis Slight; Basophils % (A) 0 %; Eosinophils # (A) 0.6 k/uL (0-0.7); Eosinophils % (A) 3 %; Hypochromasia Marked; Lymphocytes # (A) 1.2 k/uL (1.0-4.8); Lymphocytes % (A) 7 %; MCH 29.5 pg (25.0-35.0); MCHC 29.1 g/dL (31.0-37.0); MCV 101.2 fL (80.0-100.0); Macrocytosis Moderate; Monocytes # (A) 0.4 k/uL (0-1.0); Monocytes % (A) 3 %; Neutrophils % (A) 87 %; Platelet Count 425 k/uL (150-450); RBC 3.06 m/uL (4.30-5.90); RDW 18.5 % (11.5-15.5); WBC 17.3 k/uL (3.8-10.6)
[2017-11-25] MEDS: POTASSIUM CHLORIDE ORAL LIQUID 40 MEQ/30 ML CUP PO STA ×2 (12:07→16:35)
[2017-11-25] MEDS: POTASSIUM CHLORIDE ORAL LIQUID 40 MEQ/30 ML CUP PO SCH ×2 (12:07→16:37)
[2017-11-25 12:27] LABS: Glucose,Whole Blood 140 mg/dL (75-99)
[2017-11-25] MEDS: MULTIVITAMINS, THERA 1 EACH TAB PO SCH (14:00)
--- NOTE | 2017-11-25 16:11 | P.PN ---
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 Patient was intubated twice during his hospital stay and tracheostomy was placed by Dr. Espinal eventually on October 05 for failure to wean. Patient was just [facility] [place] [facility] days ago. He was transitioned to [facility] few days after his discharge according to patient. He was doing great and had no difficulty swallowing his meal is currently taking oral pill through his mouth. According to mother bedside patient had fever, chills, phlegm production associated with some congestion and shortness of breath. He wears oxygen intermittently at the facility. Rapid flu was negative. Chest x- ray suggestive of a retrocardiac infiltrate with some air bronchograms in the left lower lobe and left mid lung. Abdomen done in the ER was positive for WBC 29.8, hemoglobin 9.9, creatinine 0.3, albumin 2. Patient is tachycardic, requiring 3 L of oxygen saturating at 96% with blood pressure 101/73. Patient initiated on broad-spectrum antibiotic for acute hypoxic respiratory failure secondary to pneumonia. Antibiotic coverage with cefepime and levofloxacin. Pulmonary consult placed. Speech evaluation to assess swallow. 11/19: Patient has been seen by speech therapy and he is able to eat a regular diet which will be placed. He has not had any nausea or vomiting. Dietitian is also adding in tube feedings. IV fluids will be changed to saline lock. Patient does have significant amount of sputum from his trach area and is being suctioned. Mucinex added. Noted to have J-tube leakage at the site of green liquid. Dr. Espinal will be consulted 11/20: Patient is having less drainage from his trach today and still requires suctioning. He continues to have drainage from the J-tube site and local wound care is Aquacel Ag. He is currently on IV antibiotics with cefepime and vancomycin. He is undergoing calorie count to determine if she tube can be discontinued. 11/21: Patient is complaining of his stomach feeling swollen and pain. He did not have a bowel movement today. Patient did not meet the calorie count requirements to have his J-tube removed. Surgery is looking at possibly replacing it due to drainage at the site. Sputum culture is reported as MSSA and vanco will be discontinued. Solu-Medrol will be discontinued. WBC is currently at 14.5 and hemoglobin 7.7, potassium will be replaced 11/22: There is no plan for surgery to replace J-tube at this time. Patient has minimal drainage from the site but concern is that once feedings resume, patient will have increased drainage again. Patient may need this removed as an outpatient. Patient is to start nighttime feedings. Dr. Mclaughlin recommended PICC placement and IV antibiotics with Rocephin for 2 weeks. Anticipate discharge back to [facility] tomorrow. 11/23:patient had a jump in his white count to 35. Dr. Mclaughlin has changed his antibiotics to Zosyn. Patient is having some left lower quadrant pain for which CAT scan of the abdomen and pelvis has been ordered. Discharge to [facility] will be held today.Dr. Coulter has added CT of the chest as well. 11/24: Patient still has rhonchi, and thick secretions, deep suctioning to trach was scheduled twice a day as well as necessary, scheduled Mucinex, leukocytosis has come down currently at 28,000, cultures from 126 was Angie albicans, culture from May 18 sputum was staph aureus MSSA, blood cultures remain negative, no diarrhea, stools needed to be submitted for C. difficile and diarrhea ensues CAT scan shows bronchopneumonia bilaterally with parapneumonic effusion left side CT of abdomen and pelvis showed mild intrahepatic and extrahepatic dilatation with post cholecystectomy status, progression of main pancreatic duct dilated patient compared to August 2017, no pancreatic mass as noted 3 mm nonobstructing calculus no hydronephrosis 11/25: Patient is feeling much better, we have read the nutrition notes, patient feeding was recommended at 10 mL per hour for 2HN,, to be increased titrated at 10 mL every 12 hours with a goal of 45 mL per hour, slow titration to be started to avoid refeeding syndrome, free water flushes allowed at 30 mL every 4 -6 hours however later on nursing staff had notified me that the J-tube is not flushing well, requested nurse to renotify to Dr. Espinal bariatric surgeon to assist with them blocking or replacing the PEG tube as mechanical means is not clearing the obstruction. Objective - Vital Signs Vital signs: Vital Signs Temp 98.0 F 11/25/17 15:00 Pulse 84 11/25/17 15:00 Resp 18 11/25/17 15:00 BP 113/78 11/25/17 15:00 Pulse Ox 98 11/25/17 15:00 Intake & Output 11/24/17 11/25/17 11/25/17 18:59 06:59 18:59 Intake Total 550 100 Output Total 150 550 Balance 400 -450 Weight 38.5 kg 38.5 kg Intake: Intake, IV Titration 550 Amount Piperacillin-Tazobactam 3 50 .375 gm In Dextrose/Water 1 50ml.bag @ 12.5 mls/hr IVPB Q8H [facility] Rx#: [id number] Sodium Chloride 0.9% 1, 500 000 ml @ 75 mls/hr IV . [id number] [facility] Rx#:[id number] Oral 100 Output: Urine 150 550 Other: Voiding Method Urinal Urinal # Voids 2 2 2 # Bowel Movements 3 2 - Constitutional General appearance: Present: cooperative, no acute distress, thin - EENT Eyes: Present: anicteric sclerae, PERRLA, dentition normal ENT: Present: NA/AT, normal oropharynx - Neck Neck: Present: normal ROM. Absent: lymphadenopathy, other, rigidity, stridor, thyromegaly - Respiratory Respiratory: bilateral: rhonchi, negative: CTA, diminished, dullness, rales, prolonged expiration, prolonged inspiration - Cardiovascular Rhythm: regular Heart sounds: normal: S1, S2 Abnormal Heart Sounds: Absent: systolic murmur, diastolic murmur, rub, S3 Gallop , S4 Gallop, click, other - Gastrointestinal General gastrointestinal: Present: soft - Integumentary Integumentary: Present: decreased turgor, normal - Psychiatric Psychiatric: Present: A&O x's 3, appropriate affect - Labs CBC & Chem 7: 11/26/17 08:55 11/26/17 08:55 Labs: Abnormal Lab Results - Last 24 Hours (Table) 11/24/17 11/24/17 11/24/17 Range/Units 08:36 17:06 20:49 WBC (3.8-10.6) k/uL RBC (4.30-5.90) m/uL Hgb (13.0-17.5) gm/dL Hct (39.0-53.0) % MCV (80.0-100.0) fL MCHC (31.0-37.0) g/dL RDW (11.5-15.5) % Neutrophils # (1.3-7.7) k/uL Potassium (3.5-5.1) mmol/L Carbon Dioxide (22-30) mmol/L BUN (9-20) mg/dL Creatinine (0.66-1.25) mg/dL Glucose (74-99) mg/dL POC Glucose (mg/dL) 126 H 217 H (75-99) mg/dL Calcium (8.4-10.2) mg/dL Prealbumin 8.0 L (18.0-42.0) mg/dL 11/25/17 11/25/17 11/25/17 Range/Units 07:45 08:04 08:04 WBC 17.3 H (3.8-10.6) k/uL RBC 3.06 L (4.30-5.90) m/uL Hgb 9.0 L (13.0-17.5) gm/dL Hct 31.0 L (39.0-53.0) % MCV 101.2 H (80.0-100.0) fL MCHC 29.1 L (31.0-37.0) g/dL RDW 18.5 H (11.5-15.5) % Neutrophils # 15.0 H (1.3-7.7) k/uL Potassium 3.1 L (3.5-5.1) mmol/L Carbon Dioxide 31 H (22-30) mmol/L BUN 7 L (9-20) mg/dL Creatinine 0.29 L (0.66-1.25) mg/dL Glucose 107 H (74-99) mg/dL POC Glucose (mg/dL) 111 H (75-99) mg/dL Calcium 7.5 L (8.4-10.2) mg/dL Prealbumin (18.0-42.0) mg/dL 11/25/17 Range/Units 12:24 WBC (3.8-10.6) k/uL RBC (4.30-5.90) m/uL Hgb (13.0-17.5) gm/dL Hct (39.0-53.0) % MCV (80.0-100.0) fL MCHC (31.0-37.0) g/dL RDW (11.5-15.5) % Neutrophils # (1.3-7.7) k/uL Potassium (3.5-5.1) mmol/L Carbon Dioxide (22-30) mmol/L BUN (9-20) mg/dL Creatinine (0.66-1.25) mg/dL Glucose (74-99) mg/dL POC Glucose (mg/dL) 140 H (75-99) mg/dL Calcium (8.4-10.2) mg/dL Prealbumin (18.0-42.0) mg/dL Microbiology - Last 24 Hours (Table) 11/23/17 09:07 Blood Culture - Preliminary Blood No Growth after 48 hours 11/23/17 12:00 Gram Stain - Final Sputum Sputum Culture - Final Angie albicans Angie glabrata 11/23/17 15:00 Urine Culture - Final Urine,Clean Catch Assessment and Plan Plan: 1. Sepsis and acute hypoxemic respiratory failure from left lower lobe MSSA pneumonia and COPD. Continue Zosyn. Sputum culture as above. Continue Pulmicort and Perforomist with DuoNeb for shortness of breath. trach collar in place. Pulmonary recommendation pending regarding D cannulization of the trach. PICC line placed. CAT scan of the chest, abdomen and pelvis ordered. Scheduled trach suctioning twice a day and when necessary every 6, schedule Mucinex 400 mg 3 times a day pulmonary following closely. 2. Severe protein calorie malnutrition with kwashiorkor thought to be due to significant stenosis of the gastrojejunostomy site. EGD performed by Dr. Espinal and underwent open jejunostomy tube on September 26. COntinue feeding via J tube. Dr. Espinal consult requested for leakage at the J-tube site. 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 4. Severe hypoalbuminemia secondary to poor oral intake of fluid and severe protein calorie malnutrition with kwashiorkor. Nutrition consult. Ensure with meals, J-tube feedings 5. History of migraine headache. Stable at this point in time. 6. Chronic pain syndrome. Continue long-acting morphine sulfate, with norco for break through pain, continue gabapentin 7. Bilateral lower extremity neuropathy. Continue gabapentin 300 3 times a day via G-tube 8. DVT prophylaxis. Continue heparin 5000 units subcutaneously every 12 hours. 9. GI prophylaxis. Continue patient on Protonix 40 mg IV push every 24 hours. 10. Patient is full code. 11. Body mass index is 10, J-tube nutritional supplementation with oral feedings, closely monitored by nutrition/dietary 12. Acute on chronic blood loss anemia, chronic secondary to severe malnourishment. FOBT on 09/17 was positive. Patient is on iron pills and has dark stool output from J tube. Hb stable. No ulceration was seen during the EGD. Follow-up with gastroenterology as outpatient 13. COPD 14. Debility, expected discharge to skilled ECF patient has very poor muscle deconditioning secondary to severe cachexia and generalized muscle atrophy
--- NOTE | 2017-11-25 16:27 | P.PN ---
Subjective Progress Note Date: 11/25/17 This is a 42-year-old male who apparently was in our ICU for a number of days and weeks. The patient underwent tracheostomy for respiratory failure and failure to wean. He apparently was transferred to one of the specialized nursing facilities or long-term acute care units. Apparently the patient was weaned there. He apparently was eventually weaned to trach collar and then to nasal prongs. Tracheostomy tube is still in place. The patient was sent then to rehabilitation at [facility]. He's been there for some time. He comes here with complaints of increasing shortness of breath chest congestion and fever chills and phlegm production. The patient just doesn't feel like he is was doing as well as he had been doing. He apparently was evaluated in the emergency room and thought to have pneumonia. Chest x-ray shows retrocardiac infiltrate with some air bronchograms in the left lower lobe and some left midlung infiltrates as well. I'm seeing the patient for COPD exacerbation and left-sided pneumonia. The patient is alert and well. The patient has a tracheostomy tube in place. The patient is receiving nasal oxygen. He does feel better today than yesterday. On 11/19/2017 patient seen in follow-up. Resting comfortably in bed, in no acute distress. Staff suctioning large amount of sputum, solares espinal in color. Patient does have productive cough. Lung sounds are positive for scattered rhonchi bilaterally. Remains afebrile, vital signs are stable, currently on 2 L per nasal cannula set 100%. Labs have been reviewed, WBC is on a downward trend, down to 12.2, hemoglobin is 8.5, sodium is 138, potassium 3.9, CO2 is 31 , B1 17, creatinine 0.26. Influenza screen was negative. Patient is awake, alert, oriented 3. Tracheostomy is in place with a speaking valve. Patient is tolerating oral intake, fair appetite. His on combination of cefepime, Levaquin, Zosyn. Blood and sputum cultures are pending. On 11/20/2017 patient seen in follow-up. Denies any worsening dyspnea, denies at 2 L per nasal cannula, O2 sat at 100%. Afebrile, vitals are stable. Sputum culture shows presumptive staph aureus, blood culture showed no growth at 48 hour prince. Patient continues on cefepime, vancomycin was added by the ID service. Staff is still suctioning moderate amount of espinal colored endotracheal secretions. Patient is tolerating oral intake, states she is trying to increase his oral intake. Calorie count is in progress. Patient was seen by general surgery in regards to the draining jejunostomy tube. Gen. surgery has no plans to replace the tube. If patient can sustain adequate calorie intake, surgery prefers to discontinue it altogether. Chest x-ray from 11/19/2017 has been reviewed and shows left lower lobe pneumonia and associated effusion. Lung sounds sound somewhat improved, although still positive for scattered rhonchi and congested cough. On 11/21/2017 patient seen in follow-up on medical surgical floor. Currently sitting up in the chair, in no acute distress. He on 2 L per nasal cannula with O2 sat at 98%, afebrile, vital signs are stable. He is eating between 75% of his meals, his tube feedings are currently on hold. The J-tube insertion site looks dry today, with decreased drainage from around the insertion site, less irritated and excoriated. Patient would like to keep it for another week, see if he can sustain his oral intake to maintain his caloric requirements. His sputum culture shows MSSA. Currently on Rocephin, cefepime was discontinued , vancomycin was discontinued as well. ID service is following. Lung sounds continue to improve, with better aeration, still positive for some scattered rhonchi, staff still suctions espinal colored secretions from endotracheal stoma. On 11/22/2017 patient seen again in medical surgical floor. Denies any worsening dyspnea, he is awake and alert, resting in bed, his mood is depressed. He continues to require endotracheal suctioning, sputum was espinal- brownish color. Vitals remains stable, he is afebrile scattered rhonchi, more so on the left. Sputum culture was positive for MSSA, patient is currently on Rocephin. Surgery is planning on keeping the J-tube in for now, no drainage noted from around the insertion site. Aquacel with silver dressings applied to the J-tube insertion site. He is consuming between 75-90% of his meals, still there is a possibility of supplemental tube feedings at night. Patient will receive PICC line placement for IV antibiots infusion today. Discharge planning is in progress for discharge back to rehab facility. Chest x-ray from 11/21/2017 has been reviewed and shows left lower lobe consolidation with air bronchograms with little if any interval change. On 11/23/2017 lab work shows acute elevation in her WBCs up to 31.9, in the absence of fevers, lung sounds are improved, and rests rhonchorous today. No diarrhea, patient had 2 episodes of formed movements yesterday. Blood work was redrawn, and WBCs came back at 35,000. Patient remains awake, alert, denies any worsening dyspnea, but appears to be very fatigued, he states he is not feeling well today. Blood cultures were sent. Patient will be sent for CT of abdomen and pelvis, we will also obtain the chest. His J-tube insertion site is leaking some greenish colored drainage from around the site. Sputum culture from 11/18/2017 showed MSSA. Patient was started on Zosyn per ID service. We will obtain lactic acid level, currently he is maintaining normal blood pressures, on 2 L per nasal cannula pulse ox of 93%. Non-tachycardic with a heart rate in the 80s BPM. Nonoliguric. Yesterday he had a PICC line placed. Still maintaining his oral intake 75% of the caloric intake. Will await results of the chest/abdomen/pelvis. On 11/24/2017 the patient is being seen on a follow-up. He is still doing very poorly. He is a failure to thrive. Very much malnourished. He has absolutely no muscle mass and no fat preserved. He looks very cachectic. There was concern that he was septic at this point specially that his white cell count was as high as 31.9 yesterday. He was started on broad-spectrum antibiotics. Cultures were sent. CAT scan of the chest abdomen and pelvis was also done. On today's evaluation is afebrile. White cell count has dropped down to 28.5. The patient was found to have Angie and sputum. Urine cultures are still pending for now. Meanwhile there was a prior sputum analysis on 11/18/2017 that showed staph aureus/MSSA. This computed tomography scan of the chest was done without contrast and it showed fluid material within the trachea and the right mainstem bronchus, tracheostomy tube was present, bilateral hazy no other densities are seen within the lungs and air bronchograms are present in the left lower lobe associated with some small left-sided pleural effusion. There is also areas of she and blood densities present in the right upper lobe. Overall findings are consistent with postinfectious changes versus ongoing aspiration. As for the mediastinal, there is no significant abnormalities. The computed tomography scan of the abdomen was also noted and it showed decrease in the size of previously noted left perinephric fluid collection and similar of the elongated fluid collection adjacent to the lesser curvature of the one Y gastric pouch. This was less clearly identified on the follow-up CAT scan of the abdomen. There is evidence of anasarca and moderate ascites. There is nonobstructing 4 mm left renal calculus, small vessel pleural effusion. The patient is taking orally and I was told that he was taking around 5075% of his meals. He still has the J-tube in place and the skin around the tube insertion is somewhat eroded. There is no evidence of necrosis or active infection at that location. ID is on the case. The patient on broad-spectrum antibiotics. He did have a single BM and there is no clear indication of an underlying diarrhea or C. diff colitis. On 11/25/2017, seeing this patient for a follow-up. He is still the same although more communicative and verbal on today's evaluation. His white cell count is improving as the patient is being treated with broad-spectrum antibiotics. He is taken orally and he denies having aspiration. Overnight he is receiving J-tube feeding. He is still on same antibiotic coverage. He is depressed. He feels that he is not gaining ground and he is not gaining any weight or muscle mass with an ongoing nutritional support. His bili was count is down to 70.3. His hemoglobin is stable low at 9.0 which is consistent with a mild macrocytic chronic anemia. Renal function is stable at 0.29 of creatinine. The patient has chronic pain. He has been unable to move out of the bed. He is unable to use his legs due to severe muscle atrophy. CAT scan of the abdomen was noted. CAT scan of the chest was noted. Prognosis remains poor. We'll start offering him nutritional support. Objective - Vital Signs Vital signs: Vital Signs Temp 98.0 F 11/25/17 15:00 Pulse 84 11/25/17 15:00 Resp 18 11/25/17 15:00 BP 113/78 11/25/17 15:00 Pulse Ox 98 11/25/17 15:00 Intake & Output 11/24/17 11/25/17 11/25/17 18:59 06:59 18:59 Intake Total 550 100 Output Total 150 550 Balance 400 -450 Weight 38.5 kg 38.5 kg Intake: Intake, IV Titration 550 Amount Piperacillin-Tazobactam 3 50 .375 gm In Dextrose/Water 1 50ml.bag @ 12.5 mls/hr IVPB Q8H BARBARA Rx#: [id number] Sodium Chloride 0.9% 1, 500 000 ml @ 75 mls/hr IV . [id number] BARBARA Rx#:[id number] Oral 100 Output: Urine 150 550 Other: Voiding Method Urinal Urinal # Voids 2 2 2 # Bowel Movements 3 2 - Exam Patient is awake and alert. He looks extremely debilitated. Upon inspection, he has no muscle mass, he has no fat reserve, he has temporal wasting, he is skin and bone, all of his bones including the facial bones and the chest bones and the hip bones are significantly exaggerated due to absence of any subcutaneous fat and muscle. He looks not in significant respiratory distress. He looks very miserable and obviously has changes consistent with failure to thrive and kwashiorkor. Head is atraumatic normocephalic. Neck is supple and the mucous membranes are dry tracheostomy tube in place and the patient has a tracheostomy tube that is capped at this point. Lungs are diminished bilaterally scattered rhonchi.Cardiac exam revealed the PMI to be normally situated and sized. The rhythm was regular and no extrasystoles were noted during several minutes of auscultation. The first and second heart sounds were normal and physiologic splitting of the second heart sound was noted. There were no murmurs, rubs, clicks, or gallops. Abdomen is soft. There is some mild ascites. No direct tenderness rebound tensile guarding. There is a J- tube in place and the exit site is somewhat erythematous and the skin is irritated and erythematous and eroded. Nevertheless there is no necrosis or disruption in the abdominal wall at that level. No purulent discharge. Extremities are showing severe muscle atrophy, no cyanosis or clubbing at this point. Neurologically awake and alert. Unable to ambulate. Resting comfortably in bed. His is able to move all 4 extremities. - Labs CBC & Chem 7: 11/25/17 08:04 11/25/17 08:04 Labs: Abnormal Lab Results - Last 24 Hours (Table) 11/24/17 11/24/17 11/24/17 Range/Units 08:36 17:06 20:49 WBC (3.8-10.6) k/uL RBC (4.30-5.90) m/uL Hgb (13.0-17.5) gm/dL Hct (39.0-53.0) % MCV (80.0-100.0) fL MCHC (31.0-37.0) g/dL RDW (11.5-15.5) % Neutrophils # (1.3-7.7) k/uL Potassium (3.5-5.1) mmol/L Carbon Dioxide (22-30) mmol/L BUN (9-20) mg/dL Creatinine (0.66-1.25) mg/dL Glucose (74-99) mg/dL POC Glucose (mg/dL) 126 H 217 H (75-99) mg/dL Calcium (8.4-10.2) mg/dL Prealbumin 8.0 L (18.0-42.0) mg/dL 11/25/17 11/25/17 11/25/17 Range/Units 07:45 08:04 08:04 WBC 17.3 H (3.8-10.6) k/uL RBC 3.06 L (4.30-5.90) m/uL Hgb 9.0 L (13.0-17.5) gm/dL Hct 31.0 L (39.0-53.0) % MCV 101.2 H (80.0-100.0) fL MCHC 29.1 L (31.0-37.0) g/dL RDW 18.5 H (11.5-15.5) % Neutrophils # 15.0 H (1.3-7.7) k/uL Potassium 3.1 L (3.5-5.1) mmol/L Carbon Dioxide 31 H (22-30) mmol/L BUN 7 L (9-20) mg/dL Creatinine 0.29 L (0.66-1.25) mg/dL Glucose 107 H (74-99) mg/dL POC Glucose (mg/dL) 111 H (75-99) mg/dL Calcium 7.5 L (8.4-10.2) mg/dL Prealbumin (18.0-42.0) mg/dL 11/25/17 Range/Units 12:24 WBC (3.8-10.6) k/uL RBC (4.30-5.90) m/uL Hgb (13.0-17.5) gm/dL Hct (39.0-53.0) % MCV (80.0-100.0) fL MCHC (31.0-37.0) g/dL RDW (11.5-15.5) % Neutrophils # (1.3-7.7) k/uL Potassium (3.5-5.1) mmol/L Carbon Dioxide (22-30) mmol/L BUN (9-20) mg/dL Creatinine (0.66-1.25) mg/dL Glucose (74-99) mg/dL POC Glucose (mg/dL) 140 H (75-99) mg/dL Calcium (8.4-10.2) mg/dL Prealbumin (18.0-42.0) mg/dL Microbiology - Last 24 Hours (Table) 11/23/17 09:07 Blood Culture - Preliminary Blood No Growth after 48 hours 11/23/17 12:00 Gram Stain - Final Sputum Sputum Culture - Final Angie albicans Angie glabrata 11/23/17 15:00 Urine Culture - Final Urine,Clean Catch Assessment and Plan Plan: 1 pneumonia versus ongoing aspiration is suspected based on the CAT scan findings. There is fluid within the right mainstem bronchus and the trachea is very much likely the patient is aspirating this material. Areas of tree and bud appearance and areas of consolidation small left-sided pleural effusion. There is MSSA within the sputum. The patient was covered with antibiotics regarding possible aspiration pneumonia. Currently on Zosyn White cell count is improving. He is more interactive. Tracheostomy tube is still in place. He is however at risk of having ongoing pneumonia is due to his poor baseline performance status, poor nutritional status, prolonged hospitalizations, and possibly his increased risk of aspiration. 2 Status post chronic respiratory failure, with long-term mechanical ventilation and eventual tracheostomy 3 Severe protein calorie malnutrition with kwashiorkor, patient was being supplemented by tube feedings through the jejunostomy . Currently trying to increase his oral intake to meet caloric requirements. Jejunostomy tube is having significant leakage from around the insertion site. Surgery is following , plan is to keep NG tube in for now for possibility of supplemental tube feeds 3 Osteoporosis 4 Gastroesophageal reflux disease 5 GI bleed 6 Scoliosis 7 Peptic ulcer disease 8 Status post cholecystectomy 9 Previous heavy tobacco use or graft 10 chronic anemia, secondary to severe malnutrition, on iron supplementations Plan This is a very complicated case. Outcome, this patient is obviously going to be poor based on the fact that the patient is having significant complications of his severe chronic malnourishment. He is extremely weak. Very debilitated. Performance status is very poor. Clinically slightly improved compared to yesterday. More interactive. White cell count is improving. He is on a combination of Zosyn and Diflucan. He seems to be quite depressed and he is still on Celexa 20 mg by mouth daily reasonable to increase the dose and I will leave this up to the primary care physician. 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 His BMI is at 12.5. Very poor prognosis. We'll continue supportive care.
[2017-11-25] MEDS ORDERED: POTASSIUM CHLORIDE ER 20 MEQ TAB.ER PO STA (17:05)
[2017-11-25 17:30] LABS: Glucose,Whole Blood 138 mg/dL (75-99)
[2017-11-25 20:35] LABS: Glucose,Whole Blood 114 mg/dL (75-99)
[2017-11-25] MEDS: POTASSIUM CHLORIDE ER 20 MEQ TAB.ER PO SCH (21:40)
[2017-11-25] MEDS: CITALOPRAM HYDROBROMIDE 20 MG TAB PO SCH (21:41)
[2017-11-26] MEDS: GABAPENTIN 300 MG CAP PO SCH ×4 (00:25→17:26)
[2017-11-26] MEDS: MORPHINE ORAL SOLN 10 MG/5 ML CUP PO SCH ×3 (03:42→19:11)
[2017-11-26] MEDS: ONDANSETRON 4 MG/2 ML VIAL IVP PRN ×3 (03:43→19:11)
[2017-11-26] MEDS: ALPRAZolam 0.5 MG TAB PO PRN ×3 (03:43→19:11)
[2017-11-26] MEDS: PIPERACILLIN-TAZOBACTAM 3.375 GM in DEXTROSE/WATER 1 50ML.BAG IVPB SCH ×2 (04:39→11:30)
[2017-11-26] MEDS: guaiFENesin SYRUP 100MG/5ML 200 MG/10 ML CUP PO SCH ×2 (07:19→17:25)
[2017-11-26] MEDS: FLUCONAZOLE ORAL SUSP 1,400 MG/35 ML BOTTLE PEG/G-TUBE SCH (07:20)
[2017-11-26] MEDS: METOPROLOL TARTRATE 12.5 MG TAB PO SCH (07:21)
[2017-11-26] MEDS: POTASSIUM CHLORIDE ER 20 MEQ TAB.ER PO SCH (07:21)
[2017-11-26] MEDS: PANTOPRAZOLE 40 MG TABLET PO SCH (07:21)
[2017-11-26] MEDS: HEPARIN SODIUM,PORCINE 5,000 UNIT/ML 1 ML VIAL SQ SCH (07:21)
[2017-11-26] MEDS: HYDROcodone/APAP 10-325MG 1 EACH TAB PO PRN (07:26)
[2017-11-26 07:56] LABS: Glucose,Whole Blood 90 mg/dL (75-99)
--- NOTE | 2017-11-26 08:19 | PN ---
PROGRESS NOTE DATE OF SERVICE: 11/25/2017. REASON FOR FOLLOWUP: Recurrent aspiration pneumonia and elevated white count. INTERVAL HISTORY: The patient is afebrile. Overall, he is not feeling that great. Seemed to have some problem with his feeding tube that his feeding has been put on hold. The patient currently being fed. Denies any choking on food. Oral intake remains to be poor. He continues to have some cough, bringing up some sputum. No nausea, vomiting and no diarrhea. EXAMINATION: Blood pressure 122/79 with a pulse of 101, temperature of 99. He is 93% on 2 L nasal cannula. General description is a middle aged male up in the bed, up in no distress. Respiratory system unlabored breathing. Coarse breath sounds bilaterally. Heart S1, S2 regular rate and rhythm. Abdomen soft, no tenderness. LABS: White count 17.3, BUN of 7, creatinine 0.29. Repeat sputum showing Angie albicans. The patient's sputum was MSSA. DIAGNOSTIC IMPRESSION AND PLAN: Patient with left lobe pneumonia with sputum showing MSSA initially. However, the patient has significant worsening of his white count. He did have a CT of the chest that shows a fluid density within the trachea extension to right mainstem bronchus likely suspicious for recurrent aspiration. His white count responded to the Zosyn that will be continued. Continue to monitor closely for any recurrent aspiration and continue supportive care. MMODL / IJN: [id number] /
[2017-11-26] MEDS: FORMOTEROL FUMARATE 20 MCG/2 ML NEBU INHALATION SCH (08:38)
[2017-11-26] MEDS: BUDESONIDE 1 MG/2 ML NEBU INHALATION SCH (08:38)
[2017-11-26] MEDS: IPRATROPIUM-ALBUTEROL 3 ML NEB INHALATION SCH ×3 (08:38→16:54)
[2017-11-26 08:42] VITALS: RESP 18
[2017-11-26 09:47] LABS: Anisocytosis Slight; Basophils % (A) 0 %; Eosinophils # (A) 0.4 k/uL (0-0.7); Eosinophils % (A) 3 %; HCT 24.9 % (39.0-53.0); Hypochromasia Marked; Lymphocytes # (A) 1.1 k/uL (1.0-4.8); Lymphocytes % (A) 7 %; MCH 28.4 pg (25.0-35.0); MCHC 29.3 g/dL (31.0-37.0); MCV 96.9 fL (80.0-100.0); Macrocytosis Slight; Monocytes # (A) 0.4 k/uL (0-1.0); Monocytes % (A) 3 %; Neutrophils # (A) 13.7 k/uL (1.3-7.7); Neutrophils % (A) 87 %; Platelet Count 423 k/uL (150-450); RBC 2.57 m/uL (4.30-5.90); RDW 17.9 % (11.5-15.5); WBC 15.8 k/uL (3.8-10.6)
[2017-11-26 09:49] LABS: ALT 18 U/L (21-72); AST 12 U/L (17-59); Albumin 1.5 g/dL (3.5-5.0); Alkaline Phosphatase 172 U/L (38-126); Anion Gap 3 mmol/L; Blood Urea Nitrogen 7 mg/dL (9-20); Calcium 7.1 mg/dL (8.4-10.2); Carbon Dioxide 32 mmol/L (22-30); Chloride 105 mmol/L (98-107); Glucose 81 mg/dL (74-99); Magnesium 1.6 mg/dL (1.6-2.3); Potassium 3.2 mmol/L (3.5-5.1); Sodium 140 mmol/L (137-145); Total Bilirubin <0.1 mg/dL (0.2-1.3); Total Protein 4.2 g/dL (6.3-8.2)
[2017-11-26 09:53] LABS: HGB 7.3 gm/dL (13.0-17.5)
[2017-11-26 11:34] VITALS: BMI 12.8
[2017-11-26] MEDS: SODIUM CHLORIDE 0.9% 1,000 ML IV SCH (11:37)
[2017-11-26] MEDS ORDERED: POTASSIUM CHLORIDE ER 20 MEQ TAB.ER PO STA (12:28)
[2017-11-26 12:48] LABS: Glucose,Whole Blood 237 mg/dL (75-99)
[2017-11-26] MEDS: MULTIVITAMINS, THERA 1 EACH TAB PO SCH (13:08)
--- NOTE | 2017-11-26 13:24 | P.PN ---
Subjective Progress Note Date: 11/26/17 Principal diagnosis: Acute aspiration pneumonia This is a 42-year-old male who apparently was in our ICU for a number of days and weeks. The patient underwent tracheostomy for respiratory failure and failure to wean. He apparently was transferred to one of the specialized nursing facilities or long-term acute care units. Apparently the patient was weaned there. He apparently was eventually weaned to trach collar and then to nasal prongs. Tracheostomy tube is still in place. The patient was sent then to rehabilitation at [facility]. He's been there for some time. He comes here with complaints of increasing shortness of breath chest congestion and fever chills and phlegm production. The patient just doesn't feel like he is was doing as well as he had been doing. He apparently was evaluated in the emergency room and thought to have pneumonia. Chest x-ray shows retrocardiac infiltrate with some air bronchograms in the left lower lobe and some left midlung infiltrates as well. I'm seeing the patient for COPD exacerbation and left-sided pneumonia. The patient is alert and well. The patient has a tracheostomy tube in place. The patient is receiving nasal oxygen. He does feel better today than yesterday. On 11/19/2017 patient seen in follow-up. Resting comfortably in bed, in no acute distress. Staff suctioning large amount of sputum, solares espinal in color. Patient does have productive cough. Lung sounds are positive for scattered rhonchi bilaterally. Remains afebrile, vital signs are stable, currently on 2 L per nasal cannula set 100%. Labs have been reviewed, WBC is on a downward trend, down to 12.2, hemoglobin is 8.5, sodium is 138, potassium 3.9, CO2 is 31 , B1 17, creatinine 0.26. Influenza screen was negative. Patient is awake, alert, oriented 3. Tracheostomy is in place with a speaking valve. Patient is tolerating oral intake, fair appetite. His on combination of cefepime, Levaquin, Zosyn. Blood and sputum cultures are pending. On 11/20/2017 patient seen in follow-up. Denies any worsening dyspnea, denies at 2 L per nasal cannula, O2 sat at 100%. Afebrile, vitals are stable. Sputum culture shows presumptive staph aureus, blood culture showed no growth at 48 hour prince. Patient continues on cefepime, vancomycin was added by the ID service. Staff is still suctioning moderate amount of espinal colored endotracheal secretions. Patient is tolerating oral intake, states she is trying to increase his oral intake. Calorie count is in progress. Patient was seen by general surgery in regards to the draining jejunostomy tube. Gen. surgery has no plans to replace the tube. If patient can sustain adequate calorie intake, surgery prefers to discontinue it altogether. Chest x-ray from 11/19/2017 has been reviewed and shows left lower lobe pneumonia and associated effusion. Lung sounds sound somewhat improved, although still positive for scattered rhonchi and congested cough. On 11/21/2017 patient seen in follow-up on medical surgical floor. Currently sitting up in the chair, in no acute distress. He on 2 L per nasal cannula with O2 sat at 98%, afebrile, vital signs are stable. He is eating between 75% of his meals, his tube feedings are currently on hold. The J-tube insertion site looks dry today, with decreased drainage from around the insertion site, less irritated and excoriated. Patient would like to keep it for another week, see if he can sustain his oral intake to maintain his caloric requirements. His sputum culture shows MSSA. Currently on Rocephin, cefepime was discontinued , vancomycin was discontinued as well. ID service is following. Lung sounds continue to improve, with better aeration, still positive for some scattered rhonchi, staff still suctions espinal colored secretions from endotracheal stoma. On 11/22/2017 patient seen again in medical surgical floor. Denies any worsening dyspnea, he is awake and alert, resting in bed, his mood is depressed. He continues to require endotracheal suctioning, sputum was espinal- brownish color. Vitals remains stable, he is afebrile scattered rhonchi, more so on the left. Sputum culture was positive for MSSA, patient is currently on Rocephin. Surgery is planning on keeping the J-tube in for now, no drainage noted from around the insertion site. Aquacel with silver dressings applied to the J-tube insertion site. He is consuming between 75-90% of his meals, still there is a possibility of supplemental tube feedings at night. Patient will receive PICC line placement for IV antibiots infusion today. Discharge planning is in progress for discharge back to rehab facility. Chest x-ray from 11/21/2017 has been reviewed and shows left lower lobe consolidation with air bronchograms with little if any interval change. On 11/23/2017 lab work shows acute elevation in her WBCs up to 31.9, in the absence of fevers, lung sounds are improved, and rests rhonchorous today. No diarrhea, patient had 2 episodes of formed movements yesterday. Blood work was redrawn, and WBCs came back at 35,000. Patient remains awake, alert, denies any worsening dyspnea, but appears to be very fatigued, he states he is not feeling well today. Blood cultures were sent. Patient will be sent for CT of abdomen and pelvis, we will also obtain the chest. His J-tube insertion site is leaking some greenish colored drainage from around the site. Sputum culture from 11/18/2017 showed MSSA. Patient was started on Zosyn per ID service. We will obtain lactic acid level, currently he is maintaining normal blood pressures, on 2 L per nasal cannula pulse ox of 93%. Non-tachycardic with a heart rate in the 80s BPM. Nonoliguric. Yesterday he had a PICC line placed. Still maintaining his oral intake 75% of the caloric intake. Will await results of the chest/abdomen/pelvis. On 11/24/2017 the patient is being seen on a follow-up. He is still doing very poorly. He is a failure to thrive. Very much malnourished. He has absolutely no muscle mass and no fat preserved. He looks very cachectic. There was concern that he was septic at this point specially that his white cell count was as high as 31.9 yesterday. He was started on broad-spectrum antibiotics. Cultures were sent. CAT scan of the chest abdomen and pelvis was also done. On today's evaluation is afebrile. White cell count has dropped down to 28.5. The patient was found to have Angie and sputum. Urine cultures are still pending for now. Meanwhile there was a prior sputum analysis on 11/18/2017 that showed staph aureus/MSSA. This computed tomography scan of the chest was done without contrast and it showed fluid material within the trachea and the right mainstem bronchus, tracheostomy tube was present, bilateral hazy no other densities are seen within the lungs and air bronchograms are present in the left lower lobe associated with some small left-sided pleural effusion. There is also areas of she and blood densities present in the right upper lobe. Overall findings are consistent with postinfectious changes versus ongoing aspiration. As for the mediastinal, there is no significant abnormalities. The computed tomography scan of the abdomen was also noted and it showed decrease in the size of previously noted left perinephric fluid collection and similar of the elongated fluid collection adjacent to the lesser curvature of the one Y gastric pouch. This was less clearly identified on the follow-up CAT scan of the abdomen. There is evidence of anasarca and moderate ascites. There is nonobstructing 4 mm left renal calculus, small vessel pleural effusion. The patient is taking orally and I was told that he was taking around 5075% of his meals. He still has the J-tube in place and the skin around the tube insertion is somewhat eroded. There is no evidence of necrosis or active infection at that location. ID is on the case. The patient on broad-spectrum antibiotics. He did have a single BM and there is no clear indication of an underlying diarrhea or C. diff colitis. On 11/25/2017, seeing this patient for a follow-up. He is still the same although more communicative and verbal on today's evaluation. His white cell count is improving as the patient is being treated with broad-spectrum antibiotics. He is taken orally and he denies having aspiration. Overnight he is receiving J-tube feeding. He is still on same antibiotic coverage. He is depressed. He feels that he is not gaining ground and he is not gaining any weight or muscle mass with an ongoing nutritional support. His bili was count is down to 70.3. His hemoglobin is stable low at 9.0 which is consistent with a mild macrocytic chronic anemia. Renal function is stable at 0.29 of creatinine. The patient has chronic pain. He has been unable to move out of the bed. He is unable to use his legs due to severe muscle atrophy. CAT scan of the abdomen was noted. CAT scan of the chest was noted. Prognosis remains poor. We'll start offering him nutritional support. Reevaluated today on 11/26/2017, patient is not verbal, he is basically about the same. Labs showed leukocytosis with WBC count of 15.8 hemoglobin is 7.3 potassium is 3.2, serum albumin is 1.5. CT of the chest from 11/23/2017 showed evidence of bilateral pneumonia. Objective - Vital Signs Vital signs: Vital Signs Temp 97.1 F L 11/26/17 07:00 Pulse 78 11/26/17 12:35 Resp 18 11/26/17 12:25 BP 121/86 11/26/17 07:00 Pulse Ox 99 11/26/17 08:38 Intake & Output 11/25/17 11/26/17 11/26/17 18:59 06:59 18:59 Intake Total 50 Output Total 550 Balance -500 Weight 38.5 kg 39.5 kg 39.5 kg Intake: Oral 50 Output: Urine 550 Other: Voiding Method Urinal Urinal Urinal # Voids 2 2 # Bowel Movements 2 1 1 - Exam Patient is awake and alert. He looks extremely debilitated. Upon inspection, he has no muscle mass, he has no fat reserve, he has temporal wasting, he is skin and bone, all of his bones including the facial bones and the chest bones and the hip bones are significantly exaggerated due to absence of any subcutaneous fat and muscle. He looks not in significant respiratory distress. He looks very miserable and obviously has changes consistent with failure to thrive and kwashiorkor. Head is atraumatic normocephalic. Neck is supple and the mucous membranes are dry tracheostomy tube in place and the patient has a tracheostomy tube that is capped at this point. Lungs are diminished bilaterally scattered rhonchi.Cardiac exam revealed the PMI to be normally situated and sized. The rhythm was regular and no extrasystoles were noted during several minutes of auscultation. The first and second heart sounds were normal and physiologic splitting of the second heart sound was noted. There were no murmurs, rubs, clicks, or gallops. Abdomen is soft. There is some mild ascites. No direct tenderness rebound tensile guarding. There is a J- tube in place and the exit site is somewhat erythematous and the skin is irritated and erythematous and eroded. Nevertheless there is no necrosis or disruption in the abdominal wall at that level. No purulent discharge. Extremities are showing severe muscle atrophy, no cyanosis or clubbing at this point. Neurologically awake and alert. Unable to ambulate. Resting comfortably in bed. His is able to move all 4 extremities. - Labs CBC & Chem 7: 11/26/17 08:55 11/26/17 08:55 Labs: Abnormal Lab Results - Last 24 Hours (Table) 11/25/17 11/25/17 11/26/17 Range/Units 17:23 20:30 08:55 WBC (3.8-10.6) k/uL RBC (4.30-5.90) m/uL Hgb (13.0-17.5) gm/dL Hct (39.0-53.0) % MCHC (31.0-37.0) g/dL RDW (11.5-15.5) % Neutrophils # (1.3-7.7) k/uL Potassium 3.2 L (3.5-5.1) mmol/L Carbon Dioxide 32 H (22-30) mmol/L BUN 7 L (9-20) mg/dL Creatinine 0.30 L (0.66-1.25) mg/dL POC Glucose (mg/dL) 138 H 114 H (75-99) mg/dL Calcium 7.1 L (8.4-10.2) mg/dL Total Bilirubin <0.1 L (0.2-1.3) mg/dL AST 12 L (17-59) U/L ALT 18 L (21-72) U/L Alkaline Phosphatase 172 H (38-126) U/L Total Protein 4.2 L (6.3-8.2) g/dL Albumin 1.5 L (3.5-5.0) g/dL 11/26/17 11/26/17 Range/Units 08:55 12:41 WBC 15.8 H (3.8-10.6) k/uL RBC 2.57 L (4.30-5.90) m/uL Hgb 7.3 L D (13.0-17.5) gm/dL Hct 24.9 L (39.0-53.0) % MCHC 29.3 L (31.0-37.0) g/dL RDW 17.9 H (11.5-15.5) % Neutrophils # 13.7 H (1.3-7.7) k/uL Potassium (3.5-5.1) mmol/L Carbon Dioxide (22-30) mmol/L BUN (9-20) mg/dL Creatinine (0.66-1.25) mg/dL POC Glucose (mg/dL) 237 H (75-99) mg/dL Calcium (8.4-10.2) mg/dL Total Bilirubin (0.2-1.3) mg/dL AST (17-59) U/L ALT (21-72) U/L Alkaline Phosphatase (38-126) U/L Total Protein (6.3-8.2) g/dL Albumin (3.5-5.0) g/dL Microbiology - Last 24 Hours (Table) 11/23/17 09:07 Blood Culture - Preliminary Blood No Growth after 72 hours 11/23/17 12:00 Gram Stain - Final Sputum Sputum Culture - Final Angie albicans Angie glabrata Assessment and Plan Assessment: 1 acute aspiration pneumonia, and positive sputum for MSSA. Presently on Zosyn. Tracheostomy remains in place. 2 Status post chronic respiratory failure, with long-term mechanical ventilation and eventual tracheostomy 3 Severe protein calorie malnutrition with kwashiorkor, patient was being supplemented by tube feedings through the jejunostomy . Currently trying to increase his oral intake to meet caloric requirements. Jejunostomy tube is having significant leakage from around the insertion site. Surgery is following , plan is to keep NG tube in for now for possibility of supplemental tube feeds 3 Osteoporosis 4 Gastroesophageal reflux disease 5 GI bleed 6 Scoliosis 7 Peptic ulcer disease 8 Status post cholecystectomy 9 Previous heavy tobacco use or graft 10 chronic anemia, secondary to severe malnutrition, on iron supplementations Recommendation: Continue present supportive care measures and antibiotics, overall prognosis remains extremely poor and guarded. We'll continue to follow. Time with Patient: Less than 30
--- NOTE | 2017-11-26 14:46 | P.PN ---
Progress Note - Text Progress Note Date: 11/26/17 Patient is resting In his bed. He is asleep. He has a partially eaten tray of food present. His abdomen soft. There is minimal drainage around his J-tube site. Per Dr. Wayne apparently the J-tube is plugged. I explained Dr. Wayne that the J-tube was surgically insertted and would be difficult to place. I discussed that he can't I think the best plan of action would be to start TPN via PICC line and to transfer the patient down to [facility] for possible CT-guided insertion of a J-tube.
--- NOTE | 2017-11-26 15:01 | P.DS ---
Providers Date of admission: 11/18/17 03:34 Expected date of discharge: 11/26/17 Attending physician: Fior Lofton MD Consults: 11/18/17 03:37 Consult Physician Routine Consulting Provider: Grabiel Cope Consult Reason/Comments: Pneumonia Do you want consulting provider notified?: Yes 11/19/17 11:31 Consult Physician Routine Consulting Provider: Augustin Espinal Consult Reason/Comments: drainage at J-tube site Do you want consulting provider notified?: Yes 11/19/17 11:42 Consult Physician Routine Consulting Provider: Naren Mclaughlin Consult Reason/Comments: pneumonia, hosp acquired Do you want consulting provider notified?: Yes 11/25/17 17:02 Consult Physician Routine Consulting Provider: Augustin Espinal Consult Reason/Comments: malfucntioning J tube Do you want consulting provider notified?: Yes Primary care physician: [place] Course: This is a 41-year-old male one of Kaiden Matute [place], [place] with a previous medical history significant for peptic ulcer disease was diagnosed initially back in 2009 for which he underwent partial gastrectomy with vagotomy f/by recurrent peptic ulcer disease underwent subtotal gastrectomy with gastrojejunostomy in 2010, and was admitted last year in sep 2017 with significant weight loss and inability to tolerate any diet with recurrent nausea and vomiting and cachexia secondaryt o stricture of the the gastric jejunostomy area and was supposed to get it fixed outpatient but was admitted with AMS and hypoxic respiratory failure secondary aspiration. Patient was intubated twice during his hospital stay and tracheostomy was placed by Dr. Espinal eventually on October 05 for failure to wean. Patient was just transferred to [facility] [place] 3 days ago. He was transitioned to [facility] few days after his discharge according to patient. He was doing great and had no difficulty swallowing his meal is currently taking oral pill through his mouth. According to mother bedside patient had fever, chills, phlegm production associated with some congestion and shortness of breath. He wears oxygen intermittently at the facility. Rapid flu was negative. Chest x- ray suggestive of a retrocardiac infiltrate with some air bronchograms in the left lower lobe and left mid lung. Abdomen done in the ER was positive for WBC 29.8, hemoglobin 9.9, creatinine 0.3, albumin 2. Patient is tachycardic, requiring 3 L of oxygen saturating at 96% with blood pressure 101/73. Patient initiated on broad-spectrum antibiotic for acute hypoxic respiratory failure secondary to pneumonia. Antibiotic coverage with cefepime and levofloxacin. Pulmonary consult placed. Speech evaluation to assess swallow. 11/19: Patient has been seen by speech therapy and he is able to eat a regular diet which will be placed. He has not had any nausea or vomiting. Dietitian is also adding in tube feedings. IV fluids will be changed to saline lock. Patient does have significant amount of sputum from his trach area and is being suctioned. Mucinex added. Noted to have J-tube leakage at the site of green liquid. Dr. Espinal will be consulted 11/20: Patient is having less drainage from his trach today and still requires suctioning. He continues to have drainage from the J-tube site and local wound care is [facility]. He is currently on IV antibiotics with cefepime and vancomycin. He is undergoing calorie count to determine if she tube can be discontinued. 11/21: Patient is complaining of his stomach feeling swollen and pain. He did not have a bowel movement today. Patient did not meet the calorie count requirements to have his J-tube removed. Surgery is looking at possibly replacing it due to drainage at the site. Sputum culture is reported as MSSA and vanco will be discontinued. Solu-Medrol will be discontinued. WBC is currently at 14.5 and hemoglobin 7.7, potassium will be replaced 11/22: There is no plan for surgery to replace J-tube at this time. Patient has minimal drainage from the site but concern is that once feedings resume, patient will have increased drainage again. Patient may need this removed as an outpatient. Patient is to start nighttime feedings. Dr. Mclaughlin recommended PICC placement and IV antibiotics with Rocephin for 2 weeks. Anticipate discharge back to [facility] [place] tomorrow. 11/23:patient had a jump in his white count to 35. Dr. Mclaughlin has changed his antibiotics to Zosyn. Patient is having some left lower quadrant pain for which CAT scan of the abdomen and pelvis has been ordered. Discharge to [facility] will be held today.Dr. Coulter has added CT of the chest as well. 11/24: Patient still has rhonchi, and thick secretions, deep suctioning to trach was scheduled twice a day as well as necessary, scheduled Mucinex, leukocytosis has come down currently at 28,000, cultures from 126 was Angie albicans, culture from May 18 sputum was staph aureus MSSA, blood cultures remain negative, no diarrhea, stools needed to be submitted for C. difficile and diarrhea ensues CAT scan shows bronchopneumonia bilaterally with parapneumonic effusion left side CT of abdomen and pelvis showed mild intrahepatic and extrahepatic dilatation with post cholecystectomy status, progression of main pancreatic duct dilated patient compared to August 2017, no pancreatic mass as noted 3 mm nonobstructing calculus no hydronephrosis 11/26: noted the patient's tube feeding is cloudy and discuss case with Dr. Espinal. He does not plan to do any surgical intervention for this. Suggested that patient be transferred to [facility] where a CAT scan guided J-tube placement could be done. Potassium will be replaced. Hemoglobin is noted to be 7.3. Patient's last bowel movement was normal and brown. Patient will be transferred [facility] today once all arrangements are completed. Discharge diagnoses: 1. Sepsis and acute hypoxemic respiratory failure from left lower lobe MSSA pneumonia and COPD. 2. Severe protein calorie malnutrition with kwashiorkor thought to be due to significant stenosis of the gastrojejunostomy site. EGD performed by Dr. Espinal and underwent open jejunostomy tube on September 26. COntinue feeding via J tube. Dr. Espinal consult requested for leakage at the J-tube site. now patient has a clogged J-tube. 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 4. Severe hypoalbuminemia secondary to poor oral intake and severe protein calorie malnutrition with kwashiorkor. 5. History of migraine headache. Stable 6. Chronic pain syndrome. 7. Bilateral lower extremity neuropathy. 8. Body mass index is 10 9. Acute on chronic blood loss anemia, chronic secondary to severe malnourishment. 10. COPD 11. Debility, expected discharge to skilled ECF patient has very poor muscle deconditioning secondary to severe cachexia and generalized muscle atrophy Impression and plan of care have been directed as dictated by the signing physician. Ankita Sandoval nurse practitioner acting as scribe for signing physician. Patient Condition at Discharge: Stable Plan - Discharge Summary New Discharge Prescriptions: New Budesonide [Pulmicort] 1 mg INHALATION RT-BID nebu Formoterol Fumarate [Perforomist] 20 mcg INHALATION RT-BID nebu HYDROcodone/APAP 10-325MG [[place] 10-325] 1 each PO Q12HR PRN #60 tab PRN Reason: Pain Ipratropium-Albuterol Nebulize [Duoneb 0.5 mg-3 mg/3 ml Soln] 3 ml INHALATION RT-QID ampul.neb MORPHINE ORAL JOSE 2mg/mL [Morphine Oral Soln 2 MG/ML] 20 mg PO Q8H #90 ml Pantoprazole [Protonix] 40 mg PO BID tablet. Calcium Carbonate [Calcium] 600 mg PO DAILY #30 tablet cefTRIAXone [Rocephin] 2,000 mg IVPB Q24HR #14 vial Continue Artificial Tears-Hypromellose [Artificial Tear Drops] 1 drops BOTH EYES TID PRN bottle PRN Reason: Dry Eye(S) Citalopram Hydrobromide [Celexa Oral Soln] 20 mg PEJ/J-TUBE DAILY #300 ml Heparin Sodium,Porcine [Heparin Sodium] 5,000 unit SQ Q12HR vial Ipratropium-Albuterol Nebulize [Duoneb 0.5 mg-3 mg/3 ml Soln] 3 ml INHALATION RT-Q2H PRN ampul.neb PRN Reason: Shortness Of Breath Or Wheezing Multivitamins with Iron, Ped [Poly--Jose + Iron Drops (formulary)] 1 ml PO DAILY #30 ml Gabapentin Oral Soln [Neurontin Oral Soln] 300 mg PEG/G-TUBE TID #1000 ml Menthol/Zinc Oxide [Calmoseptine Ointment] 1 applic TOPICAL BID PRN PRN Reason: Skin Cleaning guaiFENesin [guaiFENesin Oral Solution] 10 ml PO Q6HR ALPRAZolam [Xanax] 1 mg PO Q8HR PRN #90 tab PRN Reason: Anxiety fentaNYL 50MCG/HR PATCH [Duragesic 50MCG/HR] 1 patch TRANSDERM Q72H #10 patch Discontinued Morphine Sulfate [Morphine Sulfate Oral Solution] 20 mg PEJ/J-TUBE TID PRN # 90 ml PRN Reason: Pain Ondansetron [Zofran] 4 mg IVP Q8HR PRN vial PRN Reason: Nausea And Vomiting Nystatin 100,000 Unit/gm Oint [Mycostatin Oint] 100,000 gm TOPICAL BID Discharge Medication List Artificial Tears-Hypromellose [Artificial Tear Drops] 1 drops BOTH EYES TID PRN bottle 10/05/17 [Rx] Citalopram Hydrobromide [Celexa Oral Soln] 20 mg PEJ/J-TUBE DAILY #300 ml [Rx] Gabapentin Oral Soln [Neurontin Oral Soln] 300 mg PEG/G-TUBE TID #1000 ml [Rx] Heparin Sodium,Porcine [Heparin Sodium] 5,000 unit SQ Q12HR vial 10/05/17 [Rx] Ipratropium-Albuterol Nebulize [Duoneb 0.5 mg-3 mg/3 ml Soln] 3 ml INHALATION RT -Q2H PRN ampul.neb 10/05/17 [Rx] Multivitamins with Iron, Ped [Poly--Jose + Iron Drops (formulary)] 1 ml PO DAILY #30 ml 10/05/17 [Rx] Menthol/Zinc Oxide [Calmoseptine Ointment] 1 applic TOPICAL BID PRN 11/18/17 [ History] guaiFENesin [guaiFENesin Oral Solution] 10 ml PO Q6HR 11/18/17 [History] ALPRAZolam [Xanax] 1 mg PO Q8HR PRN #90 tab 11/22/17 [Rx] Budesonide [Pulmicort] 1 mg INHALATION RT-BID nebu 11/22/17 [Rx] Calcium Carbonate [Calcium] 600 mg PO DAILY #30 tablet 11/22/17 [Rx] Formoterol Fumarate [Perforomist] 20 mcg INHALATION RT-BID nebu 11/22/17 [Rx] HYDROcodone/APAP 10-325MG [[place] 10-325] 1 each PO Q12HR PRN #60 tab 11/22/17 [ Rx] Ipratropium-Albuterol Nebulize [Duoneb 0.5 mg-3 mg/3 ml Soln] 3 ml INHALATION RT -QID ampul.neb 11/22/17 [Rx] MORPHINE ORAL JOSE 2mg/mL [Morphine Oral Soln 2 MG/ML] 20 mg PO Q8H #90 ml [Rx] Pantoprazole [Protonix] 40 mg PO BID tablet. 11/22/17 [Rx] cefTRIAXone [Rocephin] 2,000 mg IVPB Q24HR #14 vial 11/22/17 [Rx] fentaNYL 50MCG/HR PATCH [Duragesic 50MCG/HR] 1 patch TRANSDERM Q72H #10 patch [Rx] Follow up Appointment(s)/Referral(s): [facility], [NON-STAFF] - 1 Week Kavin Vital DO [Primary Care Provider] - 1 Week (after discharge from [facility]) Naren Mclaughlin MD [STAFF PHYSICIAN] - 2 Weeks Augustin Espinal MD [STAFF PHYSICIAN] - 2 Weeks Ambulatory/Diagnostic Orders: Basic Metabolic Panel [LAB.AMB] Location: Determined By Patient Complete Blood Count w/diff [LAB.AMB] Location: Determined By Patient Patient Instructions/Handouts: Malnutrition (DC), Pneumonia (DC) Activity/Diet/Wound Care/Special Instructions: Denies wanting flu or pneumonia vaccine. Regular diet. MRSA precautions. Information given. Activity as tolerated, change positions every 2 hours while awake. Discharge Disposition: TRANSFER TO SNF/ECF
--- NOTE | 2017-11-26 16:09 | PN ---
PROGRESS NOTE DATE OF SERVICE: 11/26/2017. REASON FOR FOLLOW UP: Recurrent aspiration pneumonia with elevated white count. INTERVAL HISTORY: The patient is afebrile. He is breathing comfortably. He still has some cough and bringing up some sputum, but when asked specifically, denies any choking on food. No nausea, vomiting, the patient did have a clogged J-tube and surgery recommended the patient be transferred to tertiary care for possible CT-guided placement of this tube. EXAMINATION: Blood pressure is 121/86 with a pulse of 79, temperature 97.1. He is 99% on 2 L nasal cannula. General description is a middle-aged male lying in bed in no distress. Respiratory system unlabored breathing. Some coarse breath sounds in the bases. No wheeze. Heart S1, S2. Regular rate and rhythm. Abdomen soft, no tenderness. LABS: Hemoglobin 7.8 with a white count of 15.8 with a BUN of 7, creatinine 0.30. DIAGNOSTIC IMPRESSION AND PLAN: Patient with recurrent aspiration pneumonia left lower lobe. Initial sputum was MSSA. Subsequently did have significant jump in the white count, could be related to likely a recurrent aspiration pneumonia. The patient now having a problem with his G-tube for which the surgery recommended the patient be transferred to [facility] for further evaluation of the same. We will keep the patient on Zosyn until the patient is evaluated by ID service at that facility. Continue supportive care. MMODL / IJN: [id number] /
[2017-11-26 17:09] VITALS: PULSE 83
[2017-11-26 19:02] VITALS: BP 147/98; TEMP 98.9
== END 2017-11-26 19:20 | disposition short-term general hospital (02) | DRG 871 ==
LOC: EC 02:25 → 4MS4W 03:34
PROVIDERS: ADMIT Internal Medicine; ATTEND Internal Medicine
PROC: 02HV33Z Insertion of Infusion Device into Superior Vena Cava, Percutaneous Approach (ICD-10-PCS; principal; 2017-11-23)
DX: A41.01 Sepsis due to Methicillin susceptible Staphylococcus aureus (principal); J96.21 Acute and chronic respiratory failure with hypoxia; J69.0 Pneumonitis due to inhalation of food and vomit; Z99.11 Dependence on respirator [ventilator] status; E40 Kwashiorkor; J90 Pleural effusion, not elsewhere classified; J15.211 Pneumonia due to Methicillin susceptible Staphylococcus aureus; R64 Cachexia; Z93.0 Tracheostomy status; R18.8 Other ascites; D62 Acute posthemorrhagic anemia; K92.2 Gastrointestinal hemorrhage, unspecified; J44.0 Chronic obstructive pulmonary disease with (acute) lower respiratory infection; J44.1 Chronic obstructive pulmonary disease with (acute) exacerbation; Q78.0 Osteogenesis imperfecta; Z68.1 Body mass index [BMI] 19.9 or less, adult; D50.0 Iron deficiency anemia secondary to blood loss (chronic); F17.200 Nicotine dependence, unspecified, uncomplicated; F32.9 Major depressive disorder, single episode, unspecified; F41.9 Anxiety disorder, unspecified; G57.93 Unspecified mononeuropathy of bilateral lower limbs; G89.4 Chronic pain syndrome; K21.9 Gastro-esophageal reflux disease without esophagitis; K27.9 Peptic ulcer, site unspecified, unspecified as acute or chronic, without hemorrhage or perforation; M41.9 Scoliosis, unspecified; M81.0 Age-related osteoporosis without current pathological fracture; N20.0 Calculus of kidney; R62.7 Adult failure to thrive; Y95 Nosocomial condition; Z79.899 Other long term (current) drug therapy; Z80.7 Family history of other malignant neoplasms of lymphoid, hematopoietic and related tissues; Z83.3 Family history of diabetes mellitus; Z90.3 Acquired absence of stomach [part of]; Z90.49 Acquired absence of other specified parts of digestive tract; Z93.4 Other artificial openings of gastrointestinal tract status
CPT/HCPCS: 36415; 36569; 71046; 71250; 74177; 76937; 77001; 80048; 80053; 80202; 81001; 82533; 82550; 82553; 83605; 83735; 84100; 84134; 84484; 85025; 85610; 85730; 87040; 87070; 87077; 87086; 87186; 87205; 87502; 93005; 94640; 94760; 96365; 96375; 99285

== ENCOUNTER 2018-05-03 11:26 | Day surgery (SDC) | payer MEDICARE ==
--- NOTE | 2018-05-02 17:52 | P.GSHP ---
History of Present Illness H&P Date: 05/03/18 CHIEF COMPLAINT: PEG tube malfunction HISTORY OF PRESENT ILLNESS: The patient is a 42-year-old male who presents with PEG tube malfunction. PEG tube placement is described. PAST MEDICAL HISTORY: Please see list. PAST SURGICAL HISTORY: Please see list. MEDICATIONS: Please see list. ALLERGIES: Please see list. SOCIAL HISTORY: No illicit drug use FAMILY HISTORY: No reports of Crohn disease or ulcerative colitis. REVIEW OF ORGAN SYSTEMS: CONSTITUTIONAL: No reports of fevers or chills. GI: Denies any blood in stools or constipation. PHYSICAL EXAM: VITAL SIGNS: Stable GENERAL: Well-developed pleasant in no acute distress. HEENT: No scleral icterus. Extraocular movements grossly intact. Moist buccal mucosa. NECK: Supple without lymphadenopathy. CHEST: Unlabored respirations. Equal bilateral excursions. CARDIOVASCULAR: Regular rate and rhythm. Distal 2+ pulses. ABDOMEN: Soft, nondistended. PEG tube malfunction. MUSCULOSKELETAL: No clubbing, cyanosis, or edema. ASSESSMENT: 1. PEG tube malfunction. PLAN: 1. Recommend proceeding with EGD with PEG tube placement Past Medical History Past Medical History: GERD/Reflux, GI Bleed, Musculoskeletal Disorder Additional Past Medical History / Comment(s): Brittle bone disease, osteoporosis ,neuropathy scoliosis gi problems peptic ulcer disease status post 2 surgeries in 2009 2010 with gastrojejunostomy stenosis. History of Any Multi-Drug Resistant Organisms: None Reported MDRO Source:: Multiple abdominal surgeries related to peptic ulcer disease Past Surgical History: Cholecystectomy Additional Past Surgical History / Comment(s): stomach -tumor(benign) and ulcers Past Anesthesia/Blood Transfusion Reactions: No Reported Reaction Past Psychological History: Anxiety, Depression Smoking Status: Former smoker Past Alcohol Use History: None Reported Past Drug Use History: None Reported - Past Family History Father Family Medical History: Cancer Mother Family Medical History: No Reported History Brother(s) Family Medical History: No Reported History Sister(s) Family Medical History: Renal Disease Daughter(s) Family Medical History: No Reported History Son(s) Family Medical History: No Reported History Medications and Allergies Home Medications Medication Instructions Recorded Confirmed Type Artificial Tears-Hypromellose 1 drops BOTH EYES TID PRN bottle 10/05/17 Rx [Artificial Tear Drops] Citalopram Hydrobromide [Celexa 20 mg PEJ/J-TUBE DAILY #300 ml 10/05/17 Rx Oral Soln] Gabapentin Oral Soln [Neurontin 300 mg PEG/G-TUBE TID #1000 ml 10/05/17 Rx Oral Soln] Heparin Sodium,Porcine [Heparin 5,000 unit SQ Q12HR vial 10/05/17 11/18/17 Rx Sodium] Ipratropium-Albuterol Nebulize 3 ml INHALATION RT-Q2H PRN 10/05/17 11/18/17 Rx [Duoneb 0.5 mg-3 mg/3 ml Soln] ampul.neb Multivitamins with Iron, Ped 1 ml PO DAILY #30 ml 10/05/17 11/18/17 Rx [Poly--Jose + Iron Drops (formulary)] Menthol/Zinc Oxide [Calmoseptine 1 applic TOPICAL BID PRN 11/18/17 11/18/17 History Ointment] guaiFENesin [guaiFENesin Oral 10 ml PO Q6HR 11/18/17 11/18/17 History Solution] ALPRAZolam [Xanax] 1 mg PO Q8HR PRN #90 tab 11/22/17 Rx Budesonide [Pulmicort] 1 mg INHALATION RT-BID nebu 11/22/17 Rx Calcium Carbonate [Calcium] 600 mg PO DAILY #30 tablet 11/22/17 Rx Formoterol Fumarate [Perforomist] 20 mcg INHALATION RT-BID nebu 11/22/17 Rx HYDROcodone/APAP 10-325MG [[place] 1 each PO Q12HR PRN #60 tab 11/22/17 Rx 10-325] Ipratropium-Albuterol Nebulize 3 ml INHALATION RT-QID ampul.neb 11/22/17 Rx [Duoneb 0.5 mg-3 mg/3 ml Soln] MORPHINE ORAL JOSE 2mg/mL [Morphine 20 mg PO Q8H #90 ml 11/22/17 Rx Oral Soln 2 MG/ML] Pantoprazole [Protonix] 40 mg PO BID tablet. 11/22/17 Rx fentaNYL 50MCG/HR PATCH [Duragesic 1 patch TRANSDERM Q72H #10 patch 11/22/17 Rx 50MCG/HR] Piperacillin Sodium/Tazobactam 4.5 gm IVPB Q8HR #42 bag 11/26/17 Rx [Zosyn] Allergies Allergy/AdvReac Type Severity Reaction Status Date / Time azithromycin [From Zithromax] AdvReac Swelling Verified 11/18/17 09:19
[2018-05-03] MEDS ORDERED: LIDOCAINE 1% 20 ML VIAL (10MG/ML) FOR IV START INTRADERMA PRN (12:47)
[2018-05-03] MEDS ORDERED: ceFAZolin 1,000 MG in DEXTROSE/WATER 1 50ML.BAG IVPB STA (12:47)
[2018-05-03] MEDS ORDERED: LACTATED RINGERS 1,000 ML IV SCH (12:47)
[2018-05-03 12:56] VITALS: RESP 18; TEMP 98.2
[2018-05-03] MEDS ORDERED: LACTATED RINGERS 1,000 ML IV ONE (13:02)
[2018-05-03] MEDS ORDERED: PROPOFOL 10 MG/ML 20 ML VIAL IV ONE (13:22)
--- NOTE | 2018-05-03 13:45 | P.PCN ---
Date of Procedure: 05/03/18 Description of Procedure: PREOPERATIVE DIAGNOSIS: Severe protein malnutrition BMI 12.3 Inadequate caloric intake. Inadequate protein intake. Gastrostomy tube status. Dysphagia. Gastrostomy tube malfunction POSTOPERATIVE DIAGNOSIS: Severe protein malnutrition BMI 12.3 Inadequate caloric intake. Inadequate protein intake. Gastrostomy tube status. Dysphagia. Alternatives gastric anatomy Gastric fistula Jejunostomy tube malfunction PROCEDURE: 1. Esophagogastroduodenoscopy SURGEON: Alyse Padron MD ANESTHESIA: MAC. EBL: 0-mL INDICATIONS: The patient is a 42-year-old male who presents with a history of protein malnutrition. His main source of nutrition and caloric intake is via gastrostomy tube. Now he presents for placement as well as feeding tube had malfunction. Benefits and risks of the procedure were described. Informed consent was obtained. DESCRIPTION: The patient was brought into the endoscopy suite and laid in supine position. Intravenous antibiotic, Ancef was given. A timeout protocol was confirmed with the team. After adequate IV sedation a bite block was placed. An Olympus gastroscope was passed along the posterior oropharynx down the distal esophagus. The stomach was entered. The stomach anatomy was completely altered including gastric fistula. No evidence of finding of a gastric tube was confirmed. As a result, his procedure was terminated for the PEG tube placement portion. The patient tolerated the procedure well. Findings: 1. Completely altered stomach anatomy. 2. Gastric fistula with gastric stenosis. Disposition: 1. Recommend referral facility for index operation versus interventional radiology placement Plan - Discharge Summary New Discharge Prescriptions: No Action Artificial Tears-Hypromellose [Artificial Tear Drops] 1 drops BOTH EYES TID PRN bottle PRN Reason: Dry Eye(S) Citalopram Hydrobromide [Celexa Oral Soln] 20 mg PEJ/J-TUBE DAILY #300 ml Heparin Sodium,Porcine [Heparin Sodium] 5,000 unit SQ Q12HR vial Ipratropium-Albuterol Nebulize [Duoneb 0.5 mg-3 mg/3 ml Soln] 3 ml INHALATION RT-Q2H PRN ampul.neb PRN Reason: Shortness Of Breath Or Wheezing Multivitamins with Iron, Ped [Poly--Jose + Iron Drops (formulary)] 1 ml PO DAILY #30 ml Gabapentin Oral Soln [Neurontin Oral Soln] 300 mg PEG/G-TUBE TID #1000 ml Menthol/Zinc Oxide [Calmoseptine Ointment] 1 applic TOPICAL BID PRN PRN Reason: Skin Cleaning guaiFENesin [guaiFENesin Oral Solution] 10 ml PO Q6HR Budesonide [Pulmicort] 1 mg INHALATION RT-BID nebu Formoterol Fumarate [Perforomist] 20 mcg INHALATION RT-BID nebu HYDROcodone/APAP 10-325MG [[place] 10-325] 1 each PO Q12HR PRN #60 tab PRN Reason: Pain Ipratropium-Albuterol Nebulize [Duoneb 0.5 mg-3 mg/3 ml Soln] 3 ml INHALATION RT-QID ampul.neb MORPHINE ORAL JOSE 2mg/mL [Morphine Oral Soln 2 MG/ML] 20 mg PO Q8H #90 ml Pantoprazole [Protonix] 40 mg PO BID tablet. ALPRAZolam [Xanax] 1 mg PO Q8HR PRN #90 tab PRN Reason: Anxiety fentaNYL 50MCG/HR PATCH [Duragesic 50MCG/HR] 1 patch TRANSDERM Q72H #10 patch Calcium Carbonate [Calcium] 600 mg PO DAILY #30 tablet Piperacillin Sodium/Tazobactam [Zosyn] 4.5 gm IVPB Q8HR #42 bag Discharge Medication List Artificial Tears-Hypromellose [Artificial Tear Drops] 1 drops BOTH EYES TID PRN bottle 10/05/17 [Rx] Citalopram Hydrobromide [Celexa Oral Soln] 20 mg PEJ/J-TUBE DAILY #300 ml [Rx] Gabapentin Oral Soln [Neurontin Oral Soln] 300 mg PEG/G-TUBE TID #1000 ml [Rx] Heparin Sodium,Porcine [Heparin Sodium] 5,000 unit SQ Q12HR vial 10/05/17 [Rx] Ipratropium-Albuterol Nebulize [Duoneb 0.5 mg-3 mg/3 ml Soln] 3 ml INHALATION RT -Q2H PRN ampul.neb 10/05/17 [Rx] Multivitamins with Iron, Ped [Poly--Jose + Iron Drops (formulary)] 1 ml PO DAILY #30 ml 10/05/17 [Rx] Menthol/Zinc Oxide [Calmoseptine Ointment] 1 applic TOPICAL BID PRN 11/18/17 [ History] guaiFENesin [guaiFENesin Oral Solution] 10 ml PO Q6HR 11/18/17 [History] ALPRAZolam [Xanax] 1 mg PO Q8HR PRN #90 tab 11/22/17 [Rx] Budesonide [Pulmicort] 1 mg INHALATION RT-BID nebu 11/22/17 [Rx] Calcium Carbonate [Calcium] 600 mg PO DAILY #30 tablet 11/22/17 [Rx] Formoterol Fumarate [Perforomist] 20 mcg INHALATION RT-BID nebu 11/22/17 [Rx] HYDROcodone/APAP 10-325MG [[place] 10-325] 1 each PO Q12HR PRN #60 tab 11/22/17 [ Rx] Ipratropium-Albuterol Nebulize [Duoneb 0.5 mg-3 mg/3 ml Soln] 3 ml INHALATION RT -QID ampul.neb 11/22/17 [Rx] MORPHINE ORAL JOSE 2mg/mL [Morphine Oral Soln 2 MG/ML] 20 mg PO Q8H #90 ml [Rx] Pantoprazole [Protonix] 40 mg PO BID tablet. 11/22/17 [Rx] fentaNYL 50MCG/HR PATCH [Duragesic 50MCG/HR] 1 patch TRANSDERM Q72H #10 patch [Rx] Piperacillin Sodium/Tazobactam [Zosyn] 4.5 gm IVPB Q8HR #42 bag 11/26/17 [Rx]
[2018-05-03 14:14] VITALS: BP 120/80; PULSE 80
== END 2018-05-03 14:31 | disposition home or self-care (01) ==
LOC: ORWHC2ENDO 11:26
PROVIDERS: ATTEND Surgery Plastic and Reconstructive Surgery
DX: K31.89 Other diseases of stomach and duodenum (principal); K31.6 Fistula of stomach and duodenum; E43 Unspecified severe protein-calorie malnutrition; Z68.1 Body mass index [BMI] 19.9 or less, adult; R13.10 Dysphagia, unspecified; K21.9 Gastro-esophageal reflux disease without esophagitis; Q78.0 Osteogenesis imperfecta; M81.0 Age-related osteoporosis without current pathological fracture; G62.9 Polyneuropathy, unspecified; M41.9 Scoliosis, unspecified; F41.9 Anxiety disorder, unspecified; F32.9 Major depressive disorder, single episode, unspecified; J44.9 Chronic obstructive pulmonary disease, unspecified; Z87.11 Personal history of peptic ulcer disease; Z87.19 Personal history of other diseases of the digestive system; Z79.2 Long term (current) use of antibiotics; Z79.01 Long term (current) use of anticoagulants; Z79.891 Long term (current) use of opiate analgesic; Z79.51 Long term (current) use of inhaled steroids; Z79.899 Other long term (current) drug therapy; Z88.1 Allergy status to other antibiotic agents
CPT/HCPCS: 43235; J2704

== ENCOUNTER → 2019-04-21 | Outpatient (CLI) | payer MEDICARE, BC ==
--- NOTE | 2019-04-21 13:58 | BD ---
EXAMINATION TYPE: Axial Bone Density DATE OF EXAM: 04/21/2019 COMPARISON: NONE CLINICAL HISTORY: M81.0 Height: 68 IN Weight: 100 LBS FRAX RISK QUESTIONS: Secondary Osteoporosis: 4. Malnutrition: YES Current Tobacco Use: YES RISK FACTORS HISTORY OF: Family History of Osteoporosis: YES MOTHER Active: LIMITED Diet low in dairy products/other sources of calcium: YES Frequent falls: YES DUE TO WEAKNESS/WEIGHT LOSS Poor Health: YES MEDICATIONS: Additional Medications: CALCIUM, VIT D, NORCO, SLEEP AID, ZANTAC, CELEXA, OMEPRAZOLE, MAXALT, B12, VA OBIOTIC, EXAM MEASUREMENTS: Bone mineral densitometry was performed using the [employer] System. Bone mineral density as measured about the Lumbar spine is: ----- L1-L4(G/cm2): 0.781 T Score Values are as follows: ----- L2: -2.9 ----- L3: -3.1 ----- L4: -4.3 ----- L1-L4: -3.3 Bone mineral density BASELINE Bone mineral density about the R hip (g/cm2): 0.576 Bone mineral density about the L hip (g/cm2): 0.574 T Score values are as follows: -----R Neck: -3.3 -----L Neck: -3.3 -----R Total: -3.4 -----L Total: -4.1 Bone mineral density BASELINE IMPRESSION: Osteoporosis (T Score less than -2.5). There is increased fracture risk and therapy is usually indicated based on age. Re-Screen 1-2 years. NOTE: T-SCORE=SD OF THE YOUNG ADULT MEAN.
== END | disposition home or self-care (01) ==
LOC: RADBDWWP 13:04
PROVIDERS: ATTEND Family Medicine
DX: M81.0 Age-related osteoporosis without current pathological fracture (principal)
CPT/HCPCS: 77080

== ENCOUNTER → 2023-11-28 | Outpatient (CLI) | payer MEDICARE, OTHER ==
--- NOTE | 2023-11-28 14:18 | MR ---
EXAMINATION TYPE: MR knee LT wo con DATE OF EXAM: 11/28/2023 COMPARISON: None HISTORY: Lt knee pain TECHNIQUE: Multiplanar, multisequence imaging of the left knee is performed without IV contrast. FINDINGS: MEDIAL MENISCUS: Anterior and posterior horns are intact without tear. LATERAL MENISCUS: Anterior and posterior horns are intact without tear. CRUCIATE LIGAMENTS: The anterior and posterior cruciate ligaments are intact and unremarkable. COLLATERAL LIGAMENTS: The medial collateral ligament and lateral collateral ligament complex are inta ct and unremarkable. EXTENSOR MECHANISM: Visualized quadriceps and patellar tendons are intact. EFFUSION: No significant suprapatellar joint effusion. POPLITEAL CYST: No popliteal/temple cyst. TRICOMPARTMENT SPACES: Intact CARTILAGE: Intact BONE MARROW SIGNAL: There is abnormal bone marrow signal noted involving the medial tibial plateau wi th increased signal seen as well as bands of decreased signal. The findings are felt to reflect bone contusion with nondisplaced subchondral fractures. No intra-articular extension. Remaining bone marro w signal is felt to be within normal limits. OTHER: No additional significant abnormality is appreciated. IMPRESSION: There is abnormal bone marrow signal noted involving the medial tibial plateau with increased signal seen as well as bands of decreased signal. The findings are felt to reflect bone contusion with nondi splaced subchondral fractures. No intra-articular extension.
== END | disposition home or self-care (01) ==
LOC: RADMRIMAIN 12:54
PROVIDERS: ATTEND Family Medicine
DX: M25.562 Pain in left knee (principal)